=== PATIENT | male | born 1950 | race Caucasian/White ===

== ENCOUNTER 2020-03-17 00:19 | Outpatient (CLI) | payer MEDICARE, SELFPAY ==
[2020-03-17 16:41] LABS: SARS-CoV-2 RNA PCR Negative
== END 2020-03-17 00:20 | disposition home or self-care (01) ==
LOC: ANHCOVIDDT 00:19
PROVIDERS: PCP Internal Medicine; Visit Provider Internal Medicine Gastroenterology
DX: Z01.818 Encounter for other preprocedural examination (principal); Z11.59 Encounter for screening for other viral diseases
CPT/HCPCS: 87635; C9803; U0003

== ENCOUNTER 2020-03-19 01:32 | Day surgery (SDC) | payer MEDICARE, SELFPAY ==
[2020-03-12 10:17] VITALS: BMI 30.8
[2020-03-19 06:28] VITALS: BP 131/84; PULSE 75; RESP 16; TEMP 36.2; O2SAT 96; BMI 31.1
[2020-03-19] MEDS: LACTATED RINGERS 1,000 ML 150 ML IV CONT (06:45)
--- NOTE | 2020-03-19 07:10 | WPDANESEPPF ---
Anes - Initial Pre Proc Eval Procedure: Operation Date: 03/19/20 07:30 Proposed Procedures p Esophagogastroduodenoscopy - Cj Marte MD Date/Time: 03/19/20 07:10 Surgeon: Cj Marte MD Pre Op Diagnosis: barretts esophagus Patient Data Age: 69 Gender: M Height: 6 ft Weight: 104 kg Last Vital Signs Temp 97.2 F L 03/19/20 06:28 Pulse 75 03/19/20 06:28 Resp 16 03/19/20 06:28 BP 131/84 03/19/20 06:28 Pulse Ox 96 03/19/20 06:28 Allergies Allergy/AdvReac Type Severity Reaction Status Date / Time Antihistamines - Alkylamine AdvReac Mild hyperactivi Verified 03/19/20 06:27 ty Home Medications Medication Instructions Recorded Confirmed Type Lacto.acidophilus-Bif.animalis 10 1 cap PO DAILY 09/06/19 03/12/20 History billion cell capsule alpha lipoic acid 50 mg capsule 200 mg PO DAILY 09/06/19 03/12/20 History cholecalciferol (vitamin D3) 25 1,000 unit PO DAILY 09/06/19 03/12/20 History mcg (1,000 unit) capsule multivitamin 1 tablet PO DAILY 09/06/19 03/12/20 History valacyclovir 1 gram tablet 2,000 mg PO PRN PRN tablet 09/06/19 03/12/20 History vitamin B complex 1 tablet PO DAILY 09/06/19 03/12/20 History omega-3 fatty acids-fish oil 360 1 cap PO BID 10/11/19 03/12/20 History mg-1,200 mg capsule pantoprazole 40 mg tablet,delayed 40 mg PO QAM #90 tablet 01/01/20 03/12/20 Rx release ezetimibe 10 mg tablet 10 mg PO DAILY #90 tablet 01/04/20 03/12/20 Rx candesartan 8 mg tablet 8 mg PO BID #180 tablet 02/20/20 03/19/20 Rx Patient hx anesthesia problems: none Family hx anesthesia problems: none PMFSH Past Medical History Medical History (Updated 03/19/20 @ 07:10 by Darryl Luna MD) Acute left ankle pain Anxiety BMI 31.0-31.9,adult Encounter for Medicare annual wellness exam Encounter for routine adult health examination without abnormal findings Encounter for special screening examination for neoplasm of prostate Eustachian tube dysfunction History of varicose veins Hx of colonic polyps Hx of colonic polyps Hypertension Melanoma Mixed hyperlipidemia On intermission coordinator drug therapy Spermatocele Thrombophlebitis of superficial veins of left lower extremity Thrombosed external hemorrhoid Venous insufficiency Vitamin B12 deficiency Vitamin D deficiency Surgical History Surgical History History of carpal tunnel surgery (~06/2007) left History of carpal tunnel surgery (~10/08/11) Right History of hemorrhoidectomy (~06/2019) History of hip surgery (~09/23/16) excision bursa Hx of bursectomy hip greater trochanteric bursa S/P cataract surgery 02/2015 & 04/2015 Status post phlebectomy (~09/20/18) Social History Social History Smoking status: Former smoker Second hand tobacco smoke exposure: No Smoking end date: 10/17/10 Alcohol intake: current Gender identity (if verbalized by the patient): Male Anes - Eval Final PreProcedure Day of Procedure 03/19/20 07:10 Patient weight: obese Heart: regular rate and rhythm Lungs: clear to auscultation Airway: Mallampati scale class II Neurological: alert and oriented Last oral intake: >/= 8 hours ASA classification: III Emergent: no Anesthetic plan: proceed Anesthesia type and monitoring: general GIVS and standard monitoring Informed Consent: The patient's anesthetic plan and its attendant risks and benefits were discussed with the patient/family/POA. Questions were solicited and answers provided to the satisfaction of the patient/family/POA.
--- NOTE | 2020-03-19 07:18 | PM.HPGS ---
History of Present Illness History of Present Illness Consent: Risks, benefits, and alternatives have been discussed and questions answered. Patient agrees to proceed with procedure. Chief complaint: barretts esophagus Narrative: Javi Bruce is a 69 year old male With Patrick's esophagus. [facility] Past Medical History Medical History Acute left ankle pain Anxiety BMI 31.0-31.9,adult Encounter for Medicare annual wellness exam Encounter for routine adult health examination without abnormal findings Encounter for special screening examination for neoplasm of prostate Eustachian tube dysfunction History of varicose veins Hx of colonic polyps Hx of colonic polyps Hypertension Melanoma Mixed hyperlipidemia On [facility] drug therapy Spermatocele Thrombophlebitis of superficial veins of left lower extremity Thrombosed external hemorrhoid Venous insufficiency Vitamin B12 deficiency Vitamin D deficiency Surgical History Surgical History History of carpal tunnel surgery (~06/2007) left History of carpal tunnel surgery (~10/08/11) Right History of hemorrhoidectomy (~06/2019) History of hip surgery (~09/23/16) excision bursa Hx of bursectomy hip greater trochanteric bursa S/P cataract surgery 02/2015 & 04/2015 Status post phlebectomy (~09/20/18) Family History Family History Father Cerebrovascular accident Family history of diabetes mellitus in first degree relative Diabetes mellitus Mother Family history of chronic obstructive pulmonary disease Sibling Family history of diabetes mellitus in first degree relative Carcinoma of colon Diabetes mellitus Other Family history of arthritis Family history of diabetes mellitus Family history of gout Family history of kidney stones Family history of malignant neoplasm Hypertension Social History Social History Smoking status: Former smoker Second hand tobacco smoke exposure: No Smoking end date: 10/17/10 Alcohol intake: current Gender identity (if verbalized by the patient): Male Meds Home Medications and Allergies Home Medications Medication Instructions Recorded Confirmed Type Lacto.acidophilus-Bif.animalis 10 1 cap PO DAILY 09/06/19 03/12/20 History billion cell capsule alpha lipoic acid 50 mg capsule 200 mg PO DAILY 09/06/19 03/12/20 History cholecalciferol (vitamin D3) 25 1,000 unit PO DAILY 09/06/19 03/12/20 History mcg (1,000 unit) capsule multivitamin 1 tablet PO DAILY 09/06/19 03/12/20 History valacyclovir 1 gram tablet 2,000 mg PO PRN PRN tablet 09/06/19 03/12/20 History vitamin B complex 1 tablet PO DAILY 09/06/19 03/12/20 History omega-3 fatty acids-fish oil 360 1 cap PO BID 10/11/19 03/12/20 History mg-1,200 mg capsule pantoprazole 40 mg tablet,delayed 40 mg PO QAM #90 tablet 01/01/20 03/12/20 Rx release ezetimibe 10 mg tablet 10 mg PO DAILY #90 tablet 01/04/20 03/12/20 Rx candesartan 8 mg tablet 8 mg PO BID #180 tablet 02/20/20 03/19/20 Rx Allergies Allergy/AdvReac Type Severity Reaction Status Date / Time Antihistamines - Alkylamine AdvReac Mild hyperactivi Verified 03/19/20 06:27 ty Vital Signs Vital Signs - 24 hr 03/19/20 06:28 Temperature 36.2 C L Pulse Rate 75 Respiratory Rate 16 Blood Pressure 131/84 Pulse Oximetry 96 Exam Const: General: alert Orientation/consciousness: patient oriented x3 Resp: Auscultation: clear to auscultation bilaterally Cardio: Rhythm: regular rhythm GI: GI Palp: Yes Soft to palpation and No Tenderness to palpation present (GI) Neuro: General: patient oriented x3 Assessment and Plan Assessment and plan (1) 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
[2020-03-19 07:40] VITALS: BP 81/44; PULSE 79; RESP 14; O2SAT 94
[2020-03-19 07:50] VITALS: BP 92/61; PULSE 76; RESP 18; O2SAT 97
[2020-03-19 08:00] VITALS: BP 101/72; PULSE 74; RESP 16; O2SAT 95
== END 2020-03-19 08:21 | disposition home or self-care (01) ==
PROVIDERS: PCP Internal Medicine; Visit Provider Internal Medicine Gastroenterology
PROC: 0DJ08ZZ Inspection of Upper Intestinal Tract, Via Natural or Artificial Opening Endoscopic (ICD-10-PCS; CPT 43235; principal; 2020-03-19 07:30)
DX: K22.70 Barrett's esophagus without dysplasia (principal); K20.8 Other esophagitis; I10 Essential (primary) hypertension; E78.2 Mixed hyperlipidemia; E55.9 Vitamin D deficiency, unspecified; E53.8 Deficiency of other specified B group vitamins; Z87.891 Personal history of nicotine dependence; E66.9 Obesity, unspecified; Z68.31 Body mass index [BMI] 31.0-31.9, adult
CPT/HCPCS: 43239; 88305; J2001; J2704; J7120

== ENCOUNTER 2020-05-22 07:41 | Outpatient (CLI) | payer MEDICARE, SELFPAY ==
--- NOTE | ~2020-05-22 | US_ITS ---
US abdomen complete DATE: 05/22/2020 08:14 INDICATION: Right upper quadrant abdominal pain TECHNIQUE: Real-time imaging of the abdomen, Doppler analysis COMPARISON: 03/02/2013 CT abdomen pelvis FINDINGS: There is hepatic steatosis. No hepatic space-occupying mass lesion is evident. Normal hepat opedal portal venous flow direction. No pancreatic mass lesion is evident. The pancreatic distal body and tail are not optimally visualized due to interference from overlying bowel. The common bile duct measures 3.9 mm, within normal limits. No gallstones, gallbladder wall thickening or pericholecystic fluid. Negative sonographic Klein's si gn. The right kidney measures approximately 10.9 cm length, the left kidney approximately 12.3 cm length. No renal mass lesion or hydronephrosis is detected. Normal splenic size. No abdominal aortic aneurysm is evident. The inferior vena cava areas are unremarkable. IMPRESSION: Hepatic steatosis Limited visualization of the pancreas Reviewed, dictated and finalized at [facility]. Reviewed, dictated and finalized at location [facility].
== END 2020-05-22 07:42 | disposition home or self-care (01) ==
PROVIDERS: PCP Internal Medicine; Visit Provider Internal Medicine
DX: R10.11 Right upper quadrant pain (principal); K76.0 Fatty (change of) liver, not elsewhere classified
CPT/HCPCS: 76700

== ENCOUNTER 2020-08-13 10:29 | Outpatient (CLI) | payer MEDICARE, SELFPAY ==
--- NOTE | 2020-08-13 10:36 | ECG_ITS ---
Measurements Intervals [place] Rate: 85 P: 41 AR: 158 QRS: 41 QRSD: 122 T: 26 QT: 395 QTc: 472 Interpretive Statements SINUS RHYTHM RSR' IN V1 OR V2, CONSIDER RIGHT VENTRICULAR HYPERTROPHY OR RIGHT VCD BASELINE ARTIFACT- I, III, AVR, AVL, AVF, V1 BORDERLINE ECG Electronically Signed On 08-13-2020 11:10:59 CDT by Hamilton Strauss D.O.
== END 2020-08-13 10:30 | disposition home or self-care (01) ==
LOC: ANHSURGERY 10:36
PROVIDERS: PCP Internal Medicine; Visit Provider Orthopaedic Surgery
DX: Z01.818 Encounter for other preprocedural examination (principal); I10 Essential (primary) hypertension
CPT/HCPCS: 93005

== ENCOUNTER 2020-08-15 02:53 | Outpatient (CLI) | payer MEDICARE, SELFPAY ==
[2020-08-15 18:02] LABS: SARS-CoV-2 RNA PCR Negative
== END 2020-08-15 02:54 | disposition home or self-care (01) ==
LOC: ANHCOVIDDT 02:54
PROVIDERS: PCP Internal Medicine; Visit Provider Orthopaedic Surgery
DX: Z01.812 Encounter for preprocedural laboratory examination (principal); Z20.828 Contact with and (suspected) exposure to other viral communicable diseases
CPT/HCPCS: 87635; C9803; U0003

== ENCOUNTER 2020-08-18 01:26 | Day surgery (SDC) | payer MEDICARE, SELFPAY ==
[2020-08-08 13:25] VITALS: BMI 32.3
--- NOTE | 2020-08-15 15:36 | WPDANESEPPF ---
Anes - Initial Pre Proc Eval Procedure: Operation Date: 08/18/20 10:30 Proposed Procedures p Right Third And Fourth Trigger Finger Release - Marek Pierce MD Date/Time: 08/15/20 15:36 Surgeon: Marek Pierce MD Pre Op Diagnosis: Right 3rd & 4th Trigger Finger Patient Data Age: 69 Gender: M Height: 1.82 m Weight: 106.6 kg Allergies Allergy/AdvReac Type Severity Reaction Status Date / Time Antihistamines - Alkylamine AdvReac Mild hyperactivi Verified 08/18/20 08:32 ty Isinvzo-Drm-Hwb Reductase AdvReac Unknown LEG/FEET Verified 08/18/20 08:32 Inhibitor PAIN Home Medications Medication Instructions Recorded Confirmed Type Lactobacillus 1 cap PO DAILY 09/06/19 08/18/20 History acidophilus-Bifidobac.animalis 10 billion cell capsule alpha lipoic acid 50 mg capsule 200 mg PO DAILY 09/06/19 08/18/20 History cholecalciferol (vitamin D3) 25 1,000 unit PO DAILY 09/06/19 08/18/20 History mcg (1,000 unit) capsule multivitamin 1 tablet PO DAILY 09/06/19 08/18/20 History valacyclovir 1 gram tablet 2,000 mg PO PRN PRN tablet 09/06/19 08/08/20 History vitamin B complex 1 tablet PO DAILY 09/06/19 08/18/20 History omega-3 fatty acids-fish oil 360 2 cap PO DAILY 10/11/19 08/18/20 History mg-1,200 mg capsule pantoprazole 40 mg tablet,delayed 40 mg PO QAM #90 tablet 01/01/20 08/18/20 Rx release candesartan 8 mg tablet 8 mg PO BID #180 tablet 02/20/20 08/18/20 Rx Patient hx anesthesia problems: none Family hx anesthesia problems: none PMFSH Past Medical History Medical History Acute left ankle pain Anxiety BMI 31.0-31.9,adult Encounter for Medicare annual wellness exam Encounter for routine adult health examination without abnormal findings Encounter for special screening examination for neoplasm of prostate Eustachian tube dysfunction History of Patrick's esophagus History of varicose veins Hx of colonic polyps Hx of colonic polyps Hypertension Melanoma Mixed hyperlipidemia On senior living drug therapy RUQ abdominal pain Spermatocele Thrombophlebitis of superficial veins of left lower extremity Thrombosed external hemorrhoid Venous insufficiency Vitamin B12 deficiency Vitamin D deficiency Surgical History Surgical History History of carpal tunnel surgery (~06/2007) left History of carpal tunnel surgery (~10/08/11) Right History of hemorrhoidectomy (~06/2019) History of hip surgery (~09/23/16) excision bursa Hx of bursectomy hip greater trochanteric bursa S/P cataract surgery 02/2015 & 04/2015 Status post phlebectomy (~09/20/18) Family History Family History Father Cerebrovascular accident Family history of diabetes mellitus in first degree relative Diabetes mellitus Mother Family history of chronic obstructive pulmonary disease Sibling Family history of diabetes mellitus in first degree relative Carcinoma of colon Diabetes mellitus Other Family history of arthritis Family history of diabetes mellitus Family history of gout Family history of kidney stones Family history of malignant neoplasm Hypertension Social History Social History Years smoked: 8 Smoking status: Former smoker Tobacco type: cigarettes Second hand tobacco smoke exposure: No Smoking end date: 10/17/01 Alcohol intake: current Drinks per week: 15 Alcohol use details: VODKA Living arrangements: with family Gender identity (if verbalized by the patient): Male Spiritual care concerns: No Anes - Eval Final PreProcedure Day of Procedure 08/15/20 15:36 Patient weight: obese Heart: regular rate and rhythm Lungs: clear to auscultation and normal air movement Airway: Mallampati scale Neurological: alert and oriented Last oral intake: >/= 8 hours
--- NOTE | 2020-08-18 08:38 | WPDHPUPDATE1 ---
History and Physical Update Update Date/Time: 08/18/20 08:38 History and Physical has been reviewed, including an updated exam of the patient. Only the 3rd is troubling him today. Plan on only releasing the right third trigger finger today. The permit has been changed to reflect that. Risks, benefits, and alternatives have been discussed and questions answered. Patient agrees to proceed with procedure.
[2020-08-18] MEDS: LACTATED RINGERS 1,000 ML 30 ML IV CONT ×2 (09:03→10:51)
[2020-08-18] MEDS: ACETAMINOPHEN 500 MG TABLET 1000 MG PO (09:06)
[2020-08-18] MEDS: KETOROLAC 15 MG/ML VIAL (*BKC) IV PUSH (09:06)
[2020-08-18] MEDS: ceFAZolin 2 GM/D5W 50 ML 2 GM/50 ML BAG IVPB (10:15)
[2020-08-18 10:51] VITALS: BP 98/66; PULSE 73; RESP 16; O2SAT 94
--- NOTE | 2020-08-18 11:07 | PM.PROC ---
Procedure Note - Detailed Date of procedure: 08/18/20 Pre-op diagnosis: Right 3rd & 4th Trigger Finger right third trigger finger Post-op diagnosis: other ( right third trigger finger) Procedure performed: right third trigger finger release Description of procedure: The patient was identified and proper site identified. The third digit of the right hand was marked. He was taken to the operating room and transferred to the OR table placing him supine taking care to pad his torso and extremities. After nonsterile tourniquet was placed high in the right arm and the arm was prepped and draped in the usual sterile fashion, IV sedation was administered. Several cc of 0.25% plain Marcaine was injected into the subcutaneous tissue over the A1 mayi of the right third digit. Extremity was exsanguinated tourniquet inflated to 200 mmHg remaining up for about 8 minutes. A longitudinal incision was made over the A1 mayi. Subcutaneous tissue was bluntly dissected protecting the neurovascular bundles. The A1 mayi was identified and transected longitudinally in line with the tendons. The tendons were delivered into the wound to verify the adequacy of the release. Hemostasis was carried out. The was irrigated with sterile antibiotic solution. Skin edges were reapproximated with four O nylon suture and a sterile dressing was applied. He tolerated the procedure well. He was transferred back three cart and taken to the recovery area in stable condition. There were no known intraoperative complications. Estimated blood loss was negligible. He received perioperative antibiotics. Anesthesia: MAC Surgeon: Marek Pierce MD Estimated blood loss (mL): 1 Tourniquet time (min): 8 Drains: No Packing: No Pathology: none sent Complications: No immediate complications Condition: stable Disposition: PACU
[2020-08-18 11:20] VITALS: BP 105/70; PULSE 65; RESP 16; O2SAT 97
== END 2020-08-18 11:59 | disposition home or self-care (01) ==
PROVIDERS: PCP Internal Medicine; Visit Provider Orthopaedic Surgery
PROC: (CPT 26055; principal; 2020-08-18 10:30)
DX: M65.331 Trigger finger, right middle finger (principal); I10 Essential (primary) hypertension; E78.2 Mixed hyperlipidemia; F41.9 Anxiety disorder, unspecified; E55.9 Vitamin D deficiency, unspecified; E53.8 Deficiency of other specified B group vitamins; I87.2 Venous insufficiency (chronic) (peripheral); Z87.891 Personal history of nicotine dependence; E66.9 Obesity, unspecified; Z68.32 Body mass index [BMI] 32.0-32.9, adult
CPT/HCPCS: 26055; A9270; J0690; J1100; J1885; J2250; J2405; J2704; J3010; J7120

== ENCOUNTER 2020-09-25 08:45 | Outpatient (CLI) | payer MEDICARE, SELFPAY ==
--- NOTE | ~2020-09-25 | MR_ITS ---
EXAMINATION: MR knee RT wo con DATE: 09/25/2020 10:33 INDICATION: Right knee pain TECHNIQUE: Magnetic resonance imaging (MRI) of the right knee was performed without intravenous contr ast. Sequences included coronal PD-weighted FSE, coronal PD-weighted FS FSE, sagittal T2-weighted FS E, sagittal PD-weighted FS FSE and axial PD weighted fat saturated FSE. COMPARISON: None. FINDINGS: Medial compartment: Longitudinal oblique tear extending to the inferior articular surface at the medial meniscal body, be coming complex in the posterior horn where there is an additional tear plane extending to the cephala d articular surface. Partial-thickness chondral fissuring versus possibly small frayed meniscal flap at the lateral side of the central weightbearing medial femoral condyle just anterior to the posterio r root of the medial meniscus. Lateral compartment: Subtle longitudinal horizontal tear plane extending to the inferior articular surface near the free e dge of the posterior horn and posterior body of the lateral meniscus. Deep chondral fissuring involvi ng greater than 50% the cartilage thickness but without degenerative subchondral changes at the poste rior aspect of the lateral tibial plateau. Small region of shallow chondral ulceration at the medial side of the posterior weightbearing medial femoral condyle. Patellofemoral compartment: Partial-thickness chondral fissuring involving up to 50% the cartilage thickness at the lateral plaza lar facet. Deeper fissuring with small focus of subarticular edema at the medial patellar facet. Troc hlear cartilage is relatively preserved. Ligaments and tendons: Anterior and posterior cruciate ligaments are normal. The medial collateral ligament and fibular uriel ateral ligament complex are normal. Moderate quadriceps tendinopathy with enthesopathic ossification and enthesophytes at its distal patellar insertion. Partial-thickness intrasubstance tear of the dist al quadriceps tendon measuring 1.5 cm medial to lateral than one third to one half of the tendon thic kness and extending up to 2 cm proximal from the patellar insertion. There is mild likely reactive ed kendrick in the patella underlying the patellar insertion of the distal quadriceps tendon. The visualized medial and lateral hamstring tendons as well as the iliotibial band are normal. Fluid: Small right knee joint effusion. 9 x 6 x 2 mm loose body in the recess posterior to the posterior cru ciate ligament. Osseous/other: Normal marrow signal aside from the previously noted mild patellar edema. No fracture or pathologic m arrow replacing process. IMPRESSION: 1. Moderate distal quadriceps tendinopathy/enthesopathy with partial-thickness intrasubstance tear of the distal quadriceps tendon. 2. Complex medial meniscal tear and longitudinal horizontal tear of the lateral meniscus. 3. Mild tricompartmental osteoarthritis with small region of high-grade chondral malacia the medial p atellar facet and small regions of moderate grade chondromalacia at the medial and lateral compartmen ts. 4. Small right knee joint effusion with small loose body at the recess posterior to the posterior cru ciate ligament. Reviewed, dictated and finalized at location [facility]. NING INTERN IMPRESSION: 1. Moderate distal quadriceps tendinopathy/enthesopathy with partial-thickness intrasubstance tear of the distal quadriceps tendon. 2. Complex medial meniscal tear and longitudinal horizontal tear of the lateral meniscus. 3. Mild tricompartmental osteoarthritis with small region of high-grade chondra l malacia the medial patellar facet and small regions of moderate grade chondro malacia at the medial and lateral compartments. 4. Small right knee joint effusion with small loose body at the rece
== END 2020-09-25 08:46 | disposition home or self-care (01) ==
PROVIDERS: PCP Internal Medicine; Visit Provider Orthopaedic Surgery
DX: S83.241A Other tear of medial meniscus, current injury, right knee, initial encounter (principal); S83.281A Other tear of lateral meniscus, current injury, right knee, initial encounter; S86.811A Strain of other muscle(s) and tendon(s) at lower leg level, right leg, initial encounter; R60.0 Localized edema; M25.461 Effusion, right knee
CPT/HCPCS: 73721

== ENCOUNTER 2020-10-07 14:50 | Outpatient (CLI) | payer MEDICARE, SELFPAY ==
--- NOTE | ~2020-10-07 | CT_ITS ---
EXAMINATION: CT abdomen pelvis wo con DATE: 10/07/2020 15:21 INDICATION: Gross hematuria TECHNIQUE: Computed tomography (CT) of the abdomen and pelvis was performed without intravenous contr ast. The dose-length product was 964.35 mGy-cm. Automated exposure control and iterative reconstructi on technique were employed. COMPARISON: CT dated 03/02/2013. FINDINGS: Lung bases are unremarkable. Heart size normal. No significant pleural or pericardial effus ion. The liver, spleen, pancreas, adrenal glands are unremarkable. There are nonobstructing bilateral nikita l stones. There is a punctate calcification dependent in the bladder, possibly recently passed stone. No ureteral stones or hydronephrosis. Gallbladder is present. Nonobstructive bowel gas pattern. Norm al appendix. Prostate gland is enlarged. Mild lower thoracic and lumbar spondylosis. No significant v ascular abnormality. No lymphadenopathy. IMPRESSION: 1. Punctate calcification dependently in the bladder, possibly recently passed stone. 2: Nonobstructing bilateral nephrolithiasis. 3: Enlarged prostate gland. Reviewed, dictated and finalized at location A. VACUUM TESTER
== END 2020-10-07 14:51 | disposition home or self-care (01) ==
PROVIDERS: PCP Internal Medicine; Visit Provider Internal Medicine
DX: R31.0 Gross hematuria (principal); N20.0 Calculus of kidney; N40.0 Benign prostatic hyperplasia without lower urinary tract symptoms; N21.0 Calculus in bladder
CPT/HCPCS: 74176

== ENCOUNTER 2020-10-17 00:52 | Outpatient (CLI) | payer MEDICARE, SELFPAY ==
[2020-10-17 18:38] LABS: SARS-CoV-2 RNA PCR Negative
== END 2020-10-17 00:53 | disposition home or self-care (01) ==
LOC: ANHCOVIDDT 00:53
PROVIDERS: PCP Internal Medicine; Visit Provider Internal Medicine Critical Care Medicine
DX: U07.1 COVID-19 (principal)
CPT/HCPCS: C9803; U0003

== ENCOUNTER 2020-10-20 09:18 | Outpatient (CLI) | payer MEDICARE, SELFPAY ==
--- NOTE | 2020-11-27 16:28 | WPDSLEEPSTUD ---
Sleep Study Date of Study: 10/20/20 Ordering Provider: Yennifer Rodríguez MD Interpreting Physician: Naomi Phelan MD Sleep Study Type: Polysomnogram Height: 1.8 m Weight: 102.058 kg Body Mass Index: 31.4 Neck Circumference: 40.64 cm [place]: 7 Reason for Sleep Study Loud snoring, restless sleep Sleep History Javi Bruce is a 70 year old man with hypertension. He frequently snores and it is always loud enough that others complain about it. At times, this wakes him up. His tells him that he is a restless sleeper, and hse notices that he has difficulty breathing at night. This does not happen every night. His brother has a history of sleep disordered breathing. He occasionally awakens from sleep feeling short of breath. He rarely awakens at night with heartburn, belching or coughing. He constantly has trouble sleep with a cold. He occasionally wakes up gasping for breath at night. He frequently has breathing problems at night observed by others. He does not sweat excessively at night. He occasionally notices his heart pounding or beating irregularly at night. He occasionally falls asleep during the day, never involuntarily and never while driving. He does not fall asleep during physical effort. He does not have loss of muscle tone was strong emotion. He does not have daytime difficulties due to excessive sleepiness. He does not feel paralyzed on waking or falling asleep. He occasionally has vivid dreamlike scenes upon awakening or falling asleep. He is not afraid to go to sleep. He does not have nightmares. He occasionally has racing thoughts. He occasionally remembers his dreams. He does not feel sad, depressed or anxious. He does not have muscular tension. He occasionally notices parts of his body jerking, rarely kicking at night. He does not have crawling and aching feelings in his legs at night or have any kind of leg pain during the night. He rarely has morning jaw pain. He frequently grinds his teeth at night and he wears a mouth splint. He rarely is bothered by pain during the day, rarely awakened by pain at night. He occasionally wakes up feeling stiff in the morning with sore achy muscles and pain in the neck and spine. He has a history of gastroesophageal reflux disease and palpitations with PVCs. Normal bedtime is 10:00 p.m., falling asleep within 10-20 minutes, waking 1 or 2 times at night to urinate. It takes 5 - 10 minutes to return to sleep. He wakes in the morning at 7:00 a.m.. The weekend schedule is the same. He has indigestion at night if he eats too late. He does take naps in the afternoon or evening. He may feel refreshed after a short 10-15 minute nap. Most of the time he feels good in the morning. He feels better in the afternoon compared to the morning. Habits: Smoked tobacco 15 years ago. Caffeine 2 cups per day. Alcohol: has not had any for over 2 months. Prior to this he was drinking 3-5 drinks per day. No recreational drugs. PMFSH Past Medical History Medical History Acute left ankle pain Anxiety BMI 31.0-31.9,adult Encounter for Medicare annual wellness exam Encounter for Medicare annual wellness exam Encounter for routine adult health examination without abnormal findings Encounter for special screening examination for neoplasm of prostate Eustachian tube dysfunction Hearing loss Hematuria History of Patrick's esophagus History of varicose veins Hx of colonic polyps Hx of colonic polyps Hyperlipidemia Hypersomnolence Hypertension Melanoma Mixed hyperlipidemia On retirement drug therapy RUQ abdominal pain Spermatocele Tear of medial meniscus of right knee Tendinitis of right quadriceps tendon Thrombophlebitis of superficial veins of left lower extremity Thrombosed external hemorrhoid Venous insufficiency Vitamin B12 deficiency Vitamin D deficiency Surgical History Surgical History (Reviewed 11/27/20 @ 16:33 by Arnulfo
[2020-11-30 16:14] VITALS: BMI 31.4
== END 2020-10-20 09:19 | disposition home or self-care (01) ==
LOC: ANHCSM 09:33
PROVIDERS: PCP Internal Medicine; Visit Provider Internal Medicine
DX: G47.33 Obstructive sleep apnea (adult) (pediatric) (principal); G47.10 Hypersomnia, unspecified
CPT/HCPCS: 95810

== ENCOUNTER → 2020-12-19 01:59 | Outpatient (CLI) | payer MEDICARE, SELFPAY ==
[2020-12-20 08:28] LABS: SARS-CoV-2 RNA PCR Negative
== END ==
PROVIDERS: PCP Internal Medicine; Visit Provider Orthopaedic Surgery
DX: Z01.812 Encounter for preprocedural laboratory examination (principal); Z20.822 Contact with and (suspected) exposure to COVID-19
CPT/HCPCS: C9803; U0003; U0005

== ENCOUNTER → 2020-12-23 07:43 | Outpatient (CLI) | payer MEDICARE, SELFPAY ==
[2020-12-24 17:20] LABS: SARS-CoV-2 RNA PCR Negative
== END ==
PROVIDERS: PCP Internal Medicine; Visit Provider Orthopaedic Surgery
DX: Z01.812 Encounter for preprocedural laboratory examination (principal); Z20.822 Contact with and (suspected) exposure to COVID-19
CPT/HCPCS: C9803; U0003; U0005

== ENCOUNTER 2020-12-23 09:45 | Outpatient (CLI) | payer MEDICARE, SELFPAY ==
--- NOTE | ~2020-12-23 | XR_ITS ---
EXAMINATION: XR ankle LT min 3V EXAM DATE: 12/23/2020 10:12 INDICATION: No known recent injury provided at this time. Pain of the left ankle. Gout. TECHNIQUE: Left ankle frontal, lateral and oblique projections obtained and reviewed. Comparison is m sol to prior examination from 01/15/2019. FINDINGS: The left ankle mortise appears intact. There are no bony erosions identified. There are n o acute fractures or dislocations identified. There is no subcutaneous gas. The soft tissue is unre markable. There are no radiopaque foreign bodies. IMPRESSION: 1. Unremarkable left ankle exam. Reviewed, dictated and finalized at location [facility]. [employer]
[2020-12-23 10:25] LABS: CRP 2.9 mg/dL (<1.0); Uric Acid 8.7 mg/dL (3.5-8.5)
[2020-12-23 10:57] LABS: Erythrocyte Sedimentation Rate 14 mm/hr (0-20)
== END 2020-12-23 09:46 | disposition home or self-care (01) ==
PROVIDERS: PCP Internal Medicine; Visit Provider Internal Medicine
DX: M10.9 Gout, unspecified (principal); M25.572 Pain in left ankle and joints of left foot
CPT/HCPCS: 36415; 73610; 84550; 85652; 86140; C9803; U0003; U0005

== ENCOUNTER 2020-12-25 00:26 | Day surgery (SDC) | payer MEDICARE, SELFPAY ==
[2020-12-12 13:04] VITALS: BMI 30.9
--- NOTE | 2020-12-23 13:11 | PC.NURSE ---
PT STATES NO CHANGE IN HEALTH OR MEDS SINCE PREOP INTERVIEW.NEW PREOP INSTRUCTIONS GIVEN.
--- NOTE | 2020-12-24 12:25 | WPDANESEPPF ---
Anes - Initial Pre Proc Eval Procedure: Operation Date: 12/25/20 12:00 Proposed Procedures p Right Knee Arthroscopy, Partial Medial Meniscectomy - Marek Pierce MD s Open Debridement Of Right Quadricep Tendon - Marek Pierce MD Date/Time: 12/24/20 12:25 Surgeon: Marek Pierce MD Pre Op Diagnosis: Right Knee Media Meniscus Tear,Quadricep Tendoniti Patient Data Age: 70 Gender: M Height: 1.8 m Weight: 100.45 kg Allergies Allergy/AdvReac Type Severity Reaction Status Date / Time Antihistamines - Alkylamine AdvReac Mild hyperactivi Verified 12/25/20 10:59 ty Arwgkmy-Ivl-Rnc Reductase AdvReac Unknown LEG/FEET Verified 12/25/20 10:59 Inhibitor PAIN Home Medications Medication Instructions Recorded Confirmed Type Lactobacillus 1 cap PO DAILY 09/06/19 12/23/20 History acidophilus-Bifidobac.animalis 10 billion cell capsule cholecalciferol (vitamin D3) 25 1,000 unit PO DAILY 09/06/19 12/23/20 History mcg (1,000 unit) capsule valacyclovir 1 gram tablet 2,000 mg PO PRN PRN tablet 09/06/19 12/23/20 History pantoprazole 40 mg tablet,delayed 40 mg PO QAM #90 tablet 01/01/20 12/23/20 Rx release candesartan 8 mg tablet See Rx Instructions .ROUTE 08/21/20 12/23/20 Rx .COMPLEX #180 tablet tramadol 50 mg tablet 50 mg PO Q6H PRN #30 tablet 12/03/20 12/23/20 Rx aspirin 81 mg tablet,delayed 81 mg PO DAILY 12/08/20 12/23/20 History release naproxen 500 mg tablet 500 mg PO TID PRN #9 tablet 12/23/20 12/23/20 Rx Patient hx anesthesia problems: none Family hx anesthesia problems: none PMFSH Past Medical History Medical History (Updated 12/23/20 @ 08:55 by Aruna Warren [facility]) Acute left ankle pain Anxiety Bladder stones BMI 31.0-31.9,adult Encounter for Medicare annual wellness exam Encounter for Medicare annual wellness exam Encounter for routine adult health examination without abnormal findings Encounter for special screening examination for neoplasm of prostate Eustachian tube dysfunction Follow up Gout Hearing loss Hematuria History of Patrick's esophagus History of varicose veins Hx of colonic polyps Hx of colonic polyps Hyperlipidemia Hypersomnolence Hypertension Melanoma Mixed hyperlipidemia On care home drug therapy RUQ abdominal pain Spermatocele Tear of medial meniscus of right knee Tendinitis of right quadriceps tendon Thrombophlebitis of superficial veins of left lower extremity Thrombosed external hemorrhoid Venous insufficiency Vitamin B12 deficiency Vitamin D deficiency Surgical History Surgical History History of carpal tunnel surgery (~06/2007) left History of carpal tunnel surgery (~10/08/11) Right History of hemorrhoidectomy (~06/2019) History of hip surgery (~09/23/16) excision bursa Hx of bursectomy hip greater trochanteric bursa S/P cataract surgery 02/2015 & 04/2015 Status post phlebectomy (~09/20/18) Trigger finger of right hand Right third surgical release July 2020 Family History Family History Father Cerebrovascular accident Family history of diabetes mellitus in first degree relative Diabetes mellitus Mother Family history of chronic obstructive pulmonary disease Sibling Family history of diabetes mellitus in first degree relative Carcinoma of colon Diabetes mellitus Other Family history of arthritis Family history of diabetes mellitus Family history of gout Family history of kidney stones Family history of malignant neoplasm Hypertension Social History Social History Smoking packs per day: 0.5 Smoking cigarettes per day: 10.0 Years smoked: 8 Smoking pack-years: 4.00 Smoking status: Former smoker Tobacco type: cigarettes Second hand tobacco smoke exposure: No Smoking end date: 10/17/01 Additional smoking assessment comments
--- NOTE | 2020-12-24 12:25 | WPDANESPNB ---
Anes - Peripheral Nerve Block Date/Time: 12/24/20 12:25 I have discussed with the patient/family/POA the placement of a peripheral nerve block for post-operative pain management, including associated risks, benefits, complications, and side effects. Alternative methods of post-operative analgesia were detailed. Questions were solicited and answers provided to the satisfaction of the patient/family/POA. Time-Out: A pre-procedural Time-Out was completed immediately before starting the procedure and confirmed: Patient Identification, Site, Procedure, Patient Position and the Availability of Requisite Equipment. Clinical Indications: Acute post-operative pain management requested by the operative surgeon. Nerve Block Insertion Note Anes-nerve block: adductor canal right Patient position: supine Skin prep: chlorhexidine Needle: 22 gauge, stimulating, insulated echogenic needle. Needle length: 80 mm Technique: ultrasound Technique comment: in plane Injectate: bupivacaine 0.5% with epi 5 mcg/ml (30cc) Observations: tolerated well Complications: none Procedure start time:: 1210 Procedure end time:: 121
[2020-12-25] VITALS (8 sets, daily range): BP systolic 88–141; BP diastolic 64–86; PULSE 80–100; RESP 15–20; TEMP 36.2–36.3; O2SAT 96–100
[2020-12-25] MEDS: ACETAMINOPHEN 500 MG TABLET 1000 MG PO (11:19)
[2020-12-25] MEDS: LACTATED RINGERS 1,000 ML 30 ML IV CONT ×2 (11:26→13:40)
[2020-12-25] MEDS: KETOROLAC 15 MG/ML VIAL (*BKC) IV PUSH (11:27)
--- NOTE | 2020-12-25 11:59 | WPDHPUPDATE1 ---
History and Physical Update Update Date/Time: 12/25/20 11:59 History and Physical has been reviewed, including an updated exam of the patient. There are NO changes in the patient's condition. Risks, benefits, and alternatives have been discussed and questions answered. Patient agrees to proceed with procedure.
[2020-12-25] MEDS: ceFAZolin 2 GM/D5W 50 ML 2 GM/50 ML BAG IVPB (12:20)
--- NOTE | 2020-12-25 13:59 | PM.PROC ---
Procedure Note - Detailed Date of procedure: 12/25/20 Pre-op diagnosis: Right Knee Media Meniscus Tear,Quadricep Tendoniti Post-op diagnosis: same Procedure performed: 1. right knee arthroscopy with partial medial meniscectomy 2. open debridement and repair right quad tendon Description of procedure: The patient was identified and proper site identified. After the anesthesia team performed a right subsartorial block, he was taken to the operating room and transferred to the OR table placing her supine taking care to pad the torso and extremities. After general anesthetic induction and intubation, a nonsterile tourniquet was placed high on the right thigh. The right lower extremity was positioned, prepped and draped in usual sterile fashion. 10 cc of 1% lidocaine was injected into the subcutaneous tissue in the area of the portals at start of the procedure, and an additional 10 at the end. The portals were established and the arthroscopy was carried out. the gutters and pouch were essentially clear. Patient had reasonable articular meniscal cartilage in the lateral compartment, some fraying of the patellar articular cartilage and medial compartment articular cartilage. There was complex tearing of the medial meniscus from the posterior horn up to into the midbody. This was contoured back to the rim with basket forceps and a shaver. There was some calcification of the cartilage appreciated as well. Arthrocare Wand was used for intra-articular hemostasis. The knee was flushed with a copious amount of arthroscopic fluid and equipment was removed. The extremity was then exsanguinated and the tourniquet inflated to 300 mmHg remaining up for approximately 17 minutes. A longitudinal incision was made distally over the quadriceps tendon at the insertion on the proximal pole of the patella. Subcutaneous tissue sharply dissected down to the tendon. The tendon was divided longitudinally centrally. There was then large area of degenerative tendon which was encountered along with a bony ossicle. The ossicle was removed rongeur was used to gently debride the degenerative tendon. This area was then irrigated. The tendon edges reapproximated side to side with 2. Vicryl suture. The deeper layers in the subcu reapproximated with two O Vicryl. Tourniquet was released. The skin edges of the incision of the quadriceps were reapproximated with three 0 nylon suture. Portals were closed with three O nylon suture and a sterile dressing was applied. He tolerated the procedure well, was awakened, extubated and taken to recovery area in stable condition. There were no known intraoperative complications. Estimated blood loss was negligible. He received perioperative antibiotics. Anesthesia: GLMA Surgeon: Marek Pierce MD Estimated blood loss (mL): 10 Tourniquet time (min): 17 Drains: No Packing: No Pathology: none sent Complications: No immediate complications Condition: stable Disposition: PACU
[2020-12-25] MEDS: oxyCODONE HCL (*CRX) 5 MG TAB IR PO (15:25)
== END 2020-12-25 15:50 | disposition home or self-care (01) ==
PROVIDERS: PCP Internal Medicine; Visit Provider Orthopaedic Surgery
PROC: (CPT 29870; principal; 2020-12-25 12:00)
PROC: (CPT 29881; 2020-12-25 12:00)
DX: M23.321 Other meniscus derangements, posterior horn of medial meniscus, right knee (principal); M76.891 Other specified enthesopathies of right lower limb, excluding foot; G89.18 Other acute postprocedural pain; I10 Essential (primary) hypertension; E78.2 Mixed hyperlipidemia; M10.9 Gout, unspecified; F41.9 Anxiety disorder, unspecified; E55.9 Vitamin D deficiency, unspecified; E53.8 Deficiency of other specified B group vitamins; Z87.891 Personal history of nicotine dependence; E66.9 Obesity, unspecified; Z68.30 Body mass index [BMI] 30.0-30.9, adult
CPT/HCPCS: 29881; 27385; 64447; A9270; J0690; J1100; J1885; J2250; J2370; J2405; J2704; J3010; J7120

== ENCOUNTER 2021-02-02 09:00 | Outpatient (RCR) | payer MEDICARE, SELFPAY ==
--- NOTE | 2020-12-31 12:33 | PTOPEVAL ---
Thank you for referring Javi Bruce to [facility].? Javi was evaluated for the dx of right knee scope with quad tendon debridement. The patient is scheduled to be seen for therapy?2 x/week for 5 weeks. Please review, sign, date and return this plan of care GILBERTO. I agree with and certify that the following plan of care is medically necessary. Referring Physician Date Attending Provider: Marek Pierce MD *PT Outpatient Evaluation Start: 12/31/20 08:09 Freq: Status: Active Protocol: Document 12/31/20 08:10 MLV (Rec: 12/31/20 09:22 MLV [id number]) Assessment Status Evaluation Evaluation Information Problem Diagnosis right knee scope with quad tendon debridement/repair 12/25/20 21 Onset September 2020 Cause overuse while doing rehab on his house Additional Evaluation Detail The patient is an excessive bike rider and has a hx of knee trouble due to overuse. The patient works part-time with insurance. The patient reports right knee pain and has meds but is limited to take them due to esophogeal issues. The patient was I w/o limits and active prior to this surgery and plans to return when allowed. Pain Assessment Timing of Pain Assessment Timing of Pain Assessment Assessment Pain Scale Pain Scale Used Numeric (1 - 10) Self Report Pain Assessment Right Knee(s) Reported Pain Level 2 Pain Description Aching,Pressure,Tightness Pain Frequency Acute Other Pain Description 2 with walking, bending is up to a 6 Pain Aggravating Factors Bending,Walking Pain Behaviors Anxious,Guarding,Limping Pain Score Pain Score 2: Self Report Interventions Used Interventions Used By Clinicians Education,Exercise,Ice Pain Relief Interventions Used By Ice,Inactivity/Rest,Medication Patient Lower Extremity Range of Motion General Lower Extremity Range of Motion Gross Lower Extremity Range of Motion left knee active motion: 0-133 Comments degrees right knee 0-87 degrees active, 0-90 degrees Lower Extremity Muscle Strength Testing General Lower Extremity Strength Reason Not Measured WNL/Left Gross Lower Extremity Strength right hip flexion/knee
--- NOTE | 2021-02-02 09:52 | PTOPEVAL ---
PHYSICAL THERAPY DISCHARGE Thank you for referring Javi Bruce to [facility].? The patient has met his goals and is independent with HEP. DC PT. Please review, sign, date and return this plan of care GILBERTO. I agree with and certify that the following plan of care is medically necessary. Referring Physician Date Attending Provider: Marek Pierce MD *PT Outpatient Discharge Start: 12/31/20 08:09 Freq: Status: Active Protocol: Document 02/02/21 09:00 MLV (Rec: 02/02/21 09:51 MLV [email or web address]) Therapy Assessment Status Assessment Status Assessment Status Discharge Evaluation Information Problem Diagnosis right knee scope with quad tendon debridement/repair 12/25/20 Onset September 2020 Cause overuse while doing rehab on his house Additional Evaluation Detail Pt feels he has progressed well and has no trouble with the HEP. The patient agrees that he is improved and is able to continue on his own with his exercises and activity progression. Pain Assessment Timing of Pain Assessment Timing of Pain Assessment Assessment Self Report Self Report Pain Level 0 Pain Score Pain Score 0: Self Report Lower Extremity Range of Motion General Lower Extremity Range of Motion Reason Not Measured WNL/Left,WNL/Right Gross Lower Extremity Range of Motion right knee 0-135 degrees Comments without pain or labor Lower Extremity Muscle Strength Testing General Lower Extremity Strength Reason Not Measured WNL/Left,WNL/Right Gross Lower Extremity Strength tolerating 20 reps of green theraband exercises w/o pain/ labor. Pt I with HEP and understands limits to activities that require higher stress to the patellar tendon, such as squat position/ stairs. Pt plans to review progression of bicycling with MD so not to put quad tendon at risk. Palpation Assessment Palpation Palpation non tender right knee region but reports sensitivity to clothing when it rubs his knee. No notable redness and incision sites well healed. Gait Assessment Gait Pattern Assessment Other Gait Observations pt ambulates w/o a devic
== END 2021-02-03 08:12 | disposition home or self-care (01) ==
LOC: ANHPT 09:00
PROVIDERS: PCP Internal Medicine; Visit Provider Orthopaedic Surgery
DX: Z48.89 Encounter for other specified surgical aftercare (principal)
CPT/HCPCS: 97035; 97110; 97161

== ENCOUNTER 2021-10-08 10:48 | Outpatient (CLI) | payer MEDICARE, SELFPAY ==
[2021-10-08 13:16] LABS: SARS-CoV-2 RNA PCR Negative (Negative)
== END 2021-10-08 10:49 | disposition home or self-care (01) ==
PROVIDERS: PCP Internal Medicine; Visit Provider Internal Medicine
DX: R68.89 Other general symptoms and signs (principal); Z20.822 Contact with and (suspected) exposure to COVID-19
CPT/HCPCS: C9803; U0003; U0005

== ENCOUNTER 2022-01-06 08:34 | Outpatient (CLI) | payer MEDICARE, SELFPAY ==
--- NOTE | 2022-01-06 08:52 | ECG_ITS ---
Measurements Intervals [place] Rate: 70 P: 24 WA: 170 QRS: 53 QRSD: 121 T: 24 QT: 422 QTc: 458 Interpretive Statements SINUS RHYTHM MODERATE INTRAVENTRICULAR CONDUCTION DELAY [110+ ms QRS DURATION] MINIMAL VOLTAGE CRITERIA FOR LVH, CONSIDER NORMAL VARIANT [MEETS CRITERIA IN ONE OF: R(aVL), S(V1), R(V5), R(V5/V6)+S(V1)] ABNORMAL ECG COMPARED TO ECG 08/13/2020 11:18:19 INTRAVENTRICULAR CONDUCTION DELAY NOW PRESENT Electronically Signed On 01-06-2022 14:04:42 CDT by Pacheco Ramirez M.D.
== END 2022-01-06 08:35 | disposition home or self-care (01) ==
LOC: ANHSURGERY 08:41
PROVIDERS: PCP Internal Medicine; Visit Provider Orthopaedic Surgery
DX: Z01.818 Encounter for other preprocedural examination (principal); I45.9 Conduction disorder, unspecified; I10 Essential (primary) hypertension
CPT/HCPCS: 93005

== ENCOUNTER 2022-01-12 01:24 | Day surgery (SDC) | payer MEDICARE, SELFPAY ==
[2022-01-01 09:19] VITALS: BMI 32.3
--- NOTE | 2022-01-01 09:37 | PC.NURSE ---
Addendum entered by Cece Hatfield RN 01/01/22 09:43: NO NEED TO HOLD ASPIRIN PER DR MANRIQUEZ. Original Note: Report to the Outpatient Waiting Room, entrance under the green pavilion located off [facility], at time __6:00AM on date __01/12/22 . OR Time: _7:30AM . - You and your visitor will be asked a series of questions to screen for COVID 19 for your protection. - A mask is required within the hospital. Preoperative COVID Testing Requirements: No COVID Test needed if: (proof is required; if not received patient will have Rapid Test prior to entry) - Patient has received COVID Vaccine at least 14 days prior to procedure date or - Patient has positive COVID test result within last 90 days of surgery date. COVID Test needed if above criteria is not met If not COVID vaccinated a COVID test must be conducted within 72 hours of surgery and patient is asked to isolate self from time of testing until procedure. You will go to the [employer] [facility] Testing Site for your COVID testing. The [employer] [facility] is located at the corner of [address] [facility]. You will only be called if COVID results are positive and your surgeon may reschedule your elective surgery date. Patients may have clear liquids (water, carbonated beverages, clear teas, apple juice) until 3 hours prior to surgery with a maximum of 20 ounces. - No food from midnight until time of surgery - Infants may have breast milk until 4 hours before surgery, formula 6 hours prior to surgery. - Children will be allowed to drink immediately following surgery. If applicable, please bring a bottle or sippy cup to assist with drinking. Juice, water, soda, and popsicles are readily available. For infants on formula, please bring formula the day of surgery. Pacifiers are allowed. Take the following medications with a SIP of water the morning of surgery: ___NONE Medications to discontinue per physician ALL VITAMINS/SUPPLEMENTS 3 DAYS PRE-OP Date to take last dose 01/08/22 Please no make-up, nail angolan, hairspray, perfume, deodorant, or body powder the day of surgery. No jewelry (including any body piercings) or valuables the day of surgery, leave them at home. Please take a shower or bath the night before, or the morning of, surgery with an antibacterial soap. Wear comfortable, loose fitting clothing. Children are encouraged to wear pajamas. - Jewelry must be removed prior to entering the operating room. Rings and piercings that are not removed may be cut off. - The hospital will not accept responsibility for valuables. - Please leave all valuables, including medications, at home the day of surgery. If you are going home after surgery, a licensed straddle bug driver must drive you home. - NO public transportation without another adult. - We recommend that an adult stay with you for 24 hours following discharge. - We also recommend that you do not drive, make important decision, drink alcoholic beverages, or take any drugs that were not prescribed by your health care provider for at least 24 hours after your discharge time. For Pediatric surgeries, we recommend two adults accompany the child home (only one inside the building at this time). One visitor will be allowed to accompany the patient into the hospital. Patients visitor will be instructed to remain with patient at all times or leave the building. We will allow the visitor to come back to the postoperative area when patient is ready. Follow any additional instructions given to you from your surgeon. Telephone instructions given to __PATIENTS and asked if any additional questions and then verbalized understanding. Patient advised to call surgeon office or pre surgery nurse liaison [phone] if any additional questions.
--- NOTE | 2022-01-12 08:08 | WPDANESEPPF ---
Anes - Initial Pre Proc Eval Procedure: Operation Date: 01/12/22 10:30 Proposed Procedures p Right Fourth Trigger Finger Release - Marek Pierce MD Date/Time: 01/12/22 08:08 Surgeon: Marek Pierce MD Pre Op Diagnosis: right 4th trigger finger Patient Data Age: 71 Gender: M Height: 1.8 m Weight: 105 kg Allergies Allergy/AdvReac Type Severity Reaction Status Date / Time Antihistamines - Alkylamine AdvReac Mild hyperactivi Verified 01/12/22 09:00 ty Xvqrsai-PYI-JzE Reductase AdvReac Unknown LEG/FEET Verified 01/12/22 09:00 Inhibitor PAIN [Ogkmkpc-Jbn-Xow Reductase Inhibitor] Home Medications Medication Instructions Recorded Confirmed Type Lactobacillus 1 cap PO DAILY 09/06/19 01/12/22 History acidophilus-Bifidobac.animalis 10 billion cell capsule valacyclovir 1 gram tablet 2,000 mg PO PRN PRN tablet 09/06/19 01/10/22 History aspirin 81 mg tablet,delayed 81 mg PO DAILY 12/08/20 01/12/22 History release red yeast rice 600 mg tablet 600 mg PO DAILY 05/20/21 01/12/22 History candesartan 8 mg tablet 8 mg PO BID 12/18/21 01/12/22 History hydrocortisone 2.5 % topical cream 1 applic RECTAL DAILY PRN #30 g 12/28/21 01/12/22 Rx with perineal applicator cholecalciferol (vitamin D3) 6,000 unit PO DAILY 01/01/22 01/12/22 History omega 3-fxg-srj-fish oil [Fish Oil] 2 cap PO DAILY 01/01/22 01/12/22 History pantoprazole 40 mg PO DAILY 01/01/22 01/12/22 History Patient hx anesthesia problems: none Family hx anesthesia problems: none Results Review: All pre-operative results and documents have been reviewed as part of the pre-operative evaluation. [facility] Past Medical History Medical History Acute left ankle pain Anxiety Bladder stones BMI 31.0-31.9,adult Encounter for Medicare annual wellness exam Encounter for Medicare annual wellness exam Encounter for routine adult health examination without abnormal findings Encounter for special screening examination for neoplasm of prostate Eustachian tube dysfunction Follow up Gout Hearing loss Hematuria Hemorrhoids History of Patrick's esophagus History of varicose veins Hx of colonic polyps Hx of colonic polyps Hyperlipidemia Hypersomnolence Hypertension Melanoma Mixed hyperlipidemia On intermediate designer drug therapy Right shoulder pain RUQ abdominal pain Spermatocele Tear of medial meniscus of right knee Tendinitis of right quadriceps tendon Thrombophlebitis of superficial veins of left lower extremity Thrombosed external hemorrhoid Venous insufficiency Vitamin B12 deficiency Vitamin D deficiency Surgical History Surgical History History of carpal tunnel surgery (~06/2007) left History of carpal tunnel surgery (~10/08/11) Right History of hemorrhoidectomy (~06/2019) History of hip surgery (~09/23/16) excision bursa History of right knee surgery partial medial meniscectomy open debridement quad tendon December 24, 2020 Hx of bursectomy hip greater trochanteric bursa S/P cataract surgery 02/2015 & 04/2015 Status post phlebectomy (~09/20/18) Trigger finger of right hand Right third surgical release July 2020 Family History Family History Father Cerebrovascular accident Family history of diabetes mellitus in first degree relative Diabetes mellitus Mother Family history of chronic obstructive pulmonary disease Sibling Family history of diabetes mellitus in first degree relative Carcinoma of colon Diabetes mellitus Other Family history of arthritis Family history of diabetes mellitus Family history of gout Family history of kidney stones Family history of malignant neoplasm Hypertension Social History Social History Smoking packs per day: 0.5 Smoking cigarettes per day: 10.0
[2022-01-12 08:43] VITALS: BP 133/91; PULSE 68; RESP 20; TEMP 36.4; O2SAT 99
[2022-01-12] MEDS: ACETAMINOPHEN 500 MG TABLET 1000 MG PO (09:04)
[2022-01-12] MEDS: LACTATED RINGERS 1,000 ML 30 ML IV CONT (09:25)
[2022-01-12] MEDS: KETOROLAC 15 MG/ML VIAL (*BKC) IV PUSH (09:26)
--- NOTE | 2022-01-12 09:40 | WPDHPUPDATE1 ---
History and Physical Update Update Date/Time: 01/12/22 09:40 History and Physical has been reviewed, including an updated exam of the patient. There are NO changes in the patient's condition. Risks, benefits, and alternatives have been discussed and questions answered. Patient agrees to proceed with procedure.
[2022-01-12] MEDS: ceFAZolin 2 GM/D5W 50 ML 2 GM/50 ML BAG IVPB (10:21)
[2022-01-12] MEDS: BUPIVACAINE HCL 0.25% PF 30 ML VIAL 10 ML INFILTRATE (10:45)
[2022-01-12 11:00] VITALS: BP 107/66; PULSE 69; RESP 16; O2SAT 94
--- NOTE | 2022-01-12 11:02 | P.OP_ITS ---
Procedure Note - Detailed Date of Procedure 01/12/22 Pre-op Diagnosis right 4th trigger finger Post-op Diagnosis Same Procedure Performed Right fourth trigger finger release Surgeon Marek Pierce MD Principal Engineer Fuad Ladd Anesthesia MAC and Local Description of Procedure The patient was identified and proper site identified. He was taken to the operating room and transferred to the OR table placing supine taking care to pad the torso and extremities. IV sedation was administered. A nonsterile tourniquet was placed high on the right arm which was prepped and draped in the usual sterile fashion. Several cc of .25 % plain Marcaine was injected into the subcutaneous tissue over the A1 mayi of the right fourth digit. The extremity was exsanguinated and the tourniquet was inflated to 200 mmHg remaining up for about 9 minutes. A longitudinal incision was made over the A1 mayi. Subcutaneous tissue was bluntly dissected down to the mayi while protecting the neurovascular bundles. The A1 mayi was identified and then transected longitudinally in line with the incision and tendons. The tendons were delivered into the wound verifying the adequacy of the release. Hemostasis was carried out. The wound was irrigated with sterile saline. Skin edges were reapproximated with 4-0 nylon suture. Sterile dressing was applied. Tourniquet was released. He tolerated the procedure well and was transferred back to a cart, then taken to the recovery area in stable condition. There were no known intraoperative complications. Estimated blood loss was negligible. Perioperative antibiotics were administered. Estimated Blood Loss 1 Tourniquet Time 9 Drains No Packing No Pathology None sent Complications No immediate complications Condition Stable Disposition PACU
[2022-01-12 11:30] VITALS: BP 121/71; PULSE 64; RESP 16
== END 2022-01-12 11:55 | disposition home or self-care (01) ==
PROVIDERS: PCP Internal Medicine; Visit Provider Orthopaedic Surgery
PROC: (CPT 26055; principal; 2022-01-12 10:30)
DX: M65.341 Trigger finger, right ring finger (principal); I10 Essential (primary) hypertension; E78.2 Mixed hyperlipidemia; E55.9 Vitamin D deficiency, unspecified; E53.8 Deficiency of other specified B group vitamins; M10.9 Gout, unspecified; F41.9 Anxiety disorder, unspecified; I87.2 Venous insufficiency (chronic) (peripheral); Z87.891 Personal history of nicotine dependence; E66.9 Obesity, unspecified; Z68.31 Body mass index [BMI] 31.0-31.9, adult
CPT/HCPCS: 26055; A9270; J0690; J1885; J2250; J2704; J3010; J7120

== ENCOUNTER → 2022-06-01 09:03 | Outpatient (CLI) | payer MEDICARE, SELFPAY ==
--- NOTE | ~2022-06-01 | MR_ITS ---
EXAMINATION: MR knee LT wo con DATE: 06/01/2022 09:36 INDICATION: Left knee pain TECHNIQUE: Magnetic resonance imaging (MRI) of the left knee was performed without intravenous contra st. Sequences included coronal PD-weighted FSE, coronal PD-weighted FS FSE, sagittal T2-weighted FSE , sagittal PD-weighted FS FSE and axial PD weighted fat saturated FSE. COMPARISON: None. FINDINGS: Medial compartment: Complex tear which extends to contact the inferior articular surface of the body and posterior horn o f the medial meniscus. Partial-thickness cartilage loss along the weightbearing medial femoral condyl e with some chondral surface irregularity at the junction of the mid and posterior thirds of the dai cular surface. Mild partial-thickness cartilage loss along the medial tibial plateau with smooth pedro luis dral surface. Lateral compartment: Horizontal linear high signal intensity within the body and posterior horn of the lateral meniscus bu t which does not unambiguously contact the articular surface on contiguous images to meet strict MRI criteria for tear in this remains equivocal for either a longitudinal horizontal tear versus mucoid d egeneration. Favoring tear is a 9 x 3 x 4 mm fluid collection along the periphery of the posterior ho rn which abuts the linear increased signal suggesting a prior meniscal cyst. Articular cartilage in t he lateral compartment appears relatively preserved. Patellofemoral compartment: Tiny focus of subarticular edema-like signal change underlying a deep chondral fissure at the medial side of the lateral patellar facet. Additional mild partial thickness chondral fissuring at the media l facet without degenerative subchondral changes. Trochlear cartilage is normal. Ligaments and tendons: Anterior and posterior cruciate ligaments are normal. Mild thickening and mild increased of the proxi mal medial collateral ligament without surrounding edema consistent with likely scarring related to c hronic sprain. The fibular collateral ligament complex is normal. Moderate tendinopathy without discr ete tear at the distal patellar tendon with couple prominent heterotopic ossicles within the distal t endon and prominent enthesophytes at its anterior tibial tubercle insertion. Appearance suggests sequ mayco of childhood Trevor-Schlatter's disease. There is small amount of fluid within the underlying ugo p infrapatellar bursa consistent with bursitis. Additional mild tendinopathy at the patellar insertio ns of the proximal patellar and distal quadriceps tendons, the latter with additional small enthesoph ytes. The visualized medial and lateral hamstring tendons as well as the iliotibial band are normal. Fluid: Physiologic amount of fluid in the joint space. No loose osteochondral bodies identified. Osseous/other: Couple small low signal intensity bone islands at the medial and lateral femoral condyles. No fractur e or pathologic marrow replacing process. IMPRESSION: 1. Complex tear of the body and posterior horn of the medial meniscus. 2. Likely longitudinal horizontal tear of the body and posterior horn of the lateral meniscus with as sociated small posterior parameniscal cyst. 3. Mild medial and patellofemoral osteoarthritis with regions of moderate grade chondromalacia in the medial compartment and moderate to high-grade chondromalacia at the patella. 4. 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 Associated mild deep infrapatellar bursitis. Reviewed, dictated and finalized at location A.
== END ==
PROVIDERS: PCP Internal Medicine; Visit Provider Orthopaedic Surgery
DX: S83.232A Complex tear of medial meniscus, current injury, left knee, initial encounter (principal); X58.XXXA Exposure to other specified factors, initial encounter; M17.12 Unilateral primary osteoarthritis, left knee
CPT/HCPCS: 73721

== ENCOUNTER 2022-07-16 10:38 | Outpatient (CLI) | payer MEDICARE, SELFPAY ==
--- NOTE | ~2022-07-16 | XR_ITS ---
EXAMINATION: XR lumbar spine min 4V DATE: 07/16/2022 11:11 INDICATION: Low back pain TECHNIQUE: Anteroposterior, lateral, and bilateral oblique views of the lumbar spine, and cone-down l ateral view of the lumbosacral junction were obtained. COMPARISON: Abdomen pelvis CT dated 10/07/2020 FINDINGS: There is chronic mild anterior wedging of the L1 vertebral body. Is a vertebral body height s are otherwise maintained. There are 4 mm of stable retrolisthesis of L5 on S1 and 2 mm of stable re trolisthesis of L4 on L5. There is severe loss of intervertebral disc space height at L5-S1. The zeeshan l gas pattern is normal. There is moderate facet osteoarthritis of the lower lumbar spine. Small dege nerative osteophytes project from the anterior endplates of multiple vertebral bodies. IMPRESSION: 1. Moderate lumbar spondylosis at L5-S1 and mild spondylosis throughout the remainder of the lumbar s pine. Reviewed, dictated and finalized at location A. IMPRESSION: 1. Moderate lumbar spondylosis at L5-S1 and mild spondylosis throughout the rem ainder of the lumbar spine.
== END 2022-07-16 10:39 | disposition home or self-care (01) ==
LOC: ANHIMG 10:44
PROVIDERS: PCP Internal Medicine; Visit Provider Internal Medicine
DX: M54.50 Low back pain, unspecified (principal); M47.816 Spondylosis without myelopathy or radiculopathy, lumbar region; M43.07 Spondylolysis, lumbosacral region
CPT/HCPCS: 72110

== ENCOUNTER 2022-09-02 10:03 | Outpatient (CLI) | payer MEDICARE, SELFPAY ==
--- NOTE | 2022-09-06 11:43 | WPDHOLTEREM ---
Holter/Event Monitor Holter/Event Monitor Date of procedure: 09/02/22 Holter/Event Procedure: 48 Hr Holter Monitor Indications: Tachycardia Conclusion: 1. 48 hour holter monitor on 09/02/22. 2. Underlying rhythm is sinus rhythm. HR range 55-146 bpm; average HR 84 bpm. 3. There are 45 premature supraventricular complexes, 1 supraventricular couplet and 1 supraventricular triplet. No supraventricular tachycardia. 4. There are 2 premature ventricular complexes. No ventricular tachycardia. 5. No sinoatrial or atrioventricular blocks. No significant pauses greater than 2 seconds. 6. Patient reports symptom of cough and demonstrates sinus tachycardia at 111 bpm.
== END 2022-09-02 10:04 | disposition home or self-care (01) ==
LOC: ANHCARD 10:04
PROVIDERS: PCP Internal Medicine; Visit Provider Internal Medicine
DX: R00.0 Tachycardia, unspecified (principal)
CPT/HCPCS: 93225; 93226

== ENCOUNTER 2022-09-19 09:30 | Outpatient (CLI) | payer MEDICARE, SELFPAY ==
--- NOTE | ~2022-09-19 | MR_ITS ---
EXAMINATION: MR lumbar spine wo con, MR sacrum wo con DATE: 09/19/2022 11:25 INDICATION: Lumbar and sacral pain TECHNIQUE: 1. Magnetic resonance imaging (MRI) of the lumbar spine was performed without intravenous contrast. S equences included sagittal T2-weighted FSE, sagittal T2-weighted FS FSE, sagittal T1-weighted FSE, an d axial T2-weighted FSE. 2. MRI of the sacrum and coccyx was performed without intravenous contrast. Sequences included sagitt al PD-weighted FS FSE as well as oblique axial and coronal T1-weighted FSE and T2-weighted FS FSE. COMPARISON: Lumbar spine MR dated 12/01/2006 FINDINGS: Lumbar spine: 1-2 mm retrolisthesis L4 on L5 and 3 mm retrolisthesis L5 on S1. Unchanged chronic mild likely physio logic anterior wedging at T12 and L1. Small Schmorl's node along the superior endplate of S1. T1 hype rintense hemangioma at L1. No significant change in moderate to severe disc height loss at L5-S1 with associated fibrofatty degenerative endplate changes. Marrow signal is otherwise normal. Additional d isc desiccation and mild disc height loss at T12-L1, L3-L4 and L4-L5. The conus medullaris terminates at L1-L2. There is normal signal in the caudal spinal cord. Mild posterior epidural lipomatosis at L 2-L3 through L4-L5. Paravertebral soft tissues are unremarkable. The following disc levels are specif ically discussed: T12-L1: The disc does not extend beyond the endplate margin. There is mild bilateral facet joint oste oarthritis. There is no neural foraminal stenosis. There is no central canal stenosis. L1-L2: The disc does not extend beyond the endplate margin. There is mild bilateral facet joint osteo arthritis. There is no neural foraminal stenosis. There is no central canal stenosis. L2-L3: Disc is minimally bulging. There is mild bilateral facet joint osteoarthritis. There is no kourtney ral foraminal stenosis. There is mild central canal stenosis. L3-L4: Disc is bulging. There is mild left and mild to moderate right facet joint osteoarthritis. The re is mild bilateral neural foraminal stenosis. There is moderate central canal stenosis. L4-L5: Disc is bulging with annular fissure. There is mild to moderate bilateral facet joint osteoart hritis. There is moderate right and mild to moderate left neural foraminal stenosis. There is mild to moderate central canal stenosis. L5-S1: Disc is bulging with annular fissure. There is mild to moderate bilateral facet joint osteoart hritis. There is mild to moderate right and moderate left neural foraminal stenosis. There is no cent ral canal stenosis. Sacrum: Bone marrow signal is normal. Minimal bilateral sacroiliac osteoarthritis. No synovitis along the or erosions along the joint space to suggest inflammatory sacroiliitis. Soft tissues surrounding the sac rum and coccyx are unremarkable. IMPRESSION: 1. Interval progression of mild lumbar and moderate to severe lumbosacral spondylosis most notable fo r moderate central canal stenosis at L3-L4 and multilevel mild to moderate bilateral lumbar neural fo raminal stenosis. 2. Minimal bilateral sacroiliac osteoarthritis. Reviewed, dictated and finalized at location A. SPOOLER IMPRESSION: 1. Interval progression of mild lumbar and moderate to severe lumbosacral spond ylosis most notable for moderate central canal stenosis at L3-L4 and multilevel mild to moderate bilateral lumbar neural foraminal stenosis. 2. Minimal bilateral sacroiliac osteoarthritis.
== END 2022-09-19 09:31 | disposition home or self-care (01) ==
PROVIDERS: PCP Internal Medicine; Visit Provider Internal Medicine
DX: M47.27 Other spondylosis with radiculopathy, lumbosacral region (principal); M48.07 Spinal stenosis, lumbosacral region; M53.3 Sacrococcygeal disorders, not elsewhere classified
CPT/HCPCS: 72148; 72195

== ENCOUNTER 2023-08-26 02:52 | Day surgery (SDC) | payer MEDICARE, SELFPAY ==
[2023-08-17 10:25] VITALS: BMI 33.2
--- NOTE | 2023-08-24 12:06 | SUR.PREOP ---
Patient called regarding upcoming procedure. Reviewed preop instructions, appointment times, and procedure prep.
--- NOTE | 2023-08-25 13:39 | PM.HPGS ---
History of Present Illness History of Present Illness Consent: Risks, benefits, and alternatives have been discussed and questions answered. Patient agrees to proceed with procedure. 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 He also has a family history of colon cancer.. Review of Systems Review of Systems: All systems reviewed & are unremarkable except as noted in HPI and below PMFSH Past Medical History Medical History Acute left ankle pain Acute maxillary sinusitis Acute pansinusitis Anxiety Bladder stones BMI 31.0-31.9,adult BMI 33.0-33.9,adult DJD (degenerative joint disease) Encounter for Medicare annual wellness exam Encounter for Medicare annual wellness exam Encounter for routine adult health examination with abnormal findings Encounter for routine adult health examination without abnormal findings Eustachian tube dysfunction Follow up Gout Hearing loss Hematuria Hemorrhoids History of Patrick's esophagus History of varicose veins Hx of colonic polyps Hx of colonic polyps Hyperlipidemia Hypersomnolence Hypertension Left hip pain Lumbar canal stenosis Melanoma Mixed hyperlipidemia Nasal congestion Neural foraminal stenosis of lumbar spine On terminal carman drug therapy Personal history of COVID-19 Right arm pain Right shoulder pain RUQ abdominal pain Spermatocele Tachycardia Tear of medial meniscus of right knee Tendinitis of right quadriceps tendon Thrombophlebitis of superficial veins of left lower extremity Thrombosed external hemorrhoid Varicosities of leg Venous insufficiency Vitamin B12 deficiency Vitamin D deficiency Surgical History Surgical History History of carpal tunnel surgery (~06/2007) left History of carpal tunnel surgery (~10/08/11) Right History of hemorrhoidectomy (~06/2019) History of hip surgery (~09/23/16) excision bursa History of right knee surgery partial medial meniscectomy open debridement quad tendon December 24, 2020 Hx of bursectomy Left hip greater trochanteric bursa S/P cataract surgery 02/2015 & 04/2015 Status post phlebectomy (~09/20/18) Trigger finger of right hand Right third surgical release July 2020 Trigger finger of right hand right fourth Family History Family History Father Cerebrovascular accident Family history of diabetes mellitus in first degree relative Diabetes mellitus Mother Family history of chronic obstructive pulmonary disease Sibling Family history of diabetes mellitus in first degree relative Carcinoma of colon Diabetes mellitus Other Family history of arthritis Family history of diabetes mellitus Family history of gout Family history of kidney stones Family history of malignant neoplasm Hypertension Social History Social History Smoking packs per day: 0.25 Smoking cigarettes per day: 5.0 Years smoked: 20 Smoking pack-years: 5.00 Smoking status: Former smoker Tobacco type: cigarettes Second hand tobacco smoke exposure: No Smoking end date: 04/16/08 Additional smoking assessment comments: STATES QUIT 2001 Alcohol intake: current Drinks per week: 20 Alcohol use details: MIXED DRINKS Substance use: never Substance use type: does not use Lack of Transportation: No Lack of Food: Never True Current Housing: I Have Housing Concerned About Future Housing: No Difficulty Paying Gas/Electric Bills: No Difficulty Paying for Meds: No Currently Unemployed: No Education: Bachelor's Degree Difficulty w/ Childcare or Family Care: No Living arrangements: with family Additional living arrangements comments: Occupation/Education: retired Gender identity
--- NOTE | 2023-08-26 07:17 | WPDANESEPPF ---
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,Fam.Hx.colon ca Patient Data Age: 72 Gender: M Height: 1.8 m Weight: 108 kg Allergies Allergy/AdvReac Type Severity Reaction Status Date / Time Zxpnjqf-IOY-AbD Reductase Allergy Intermediate LEG/FEET Verified 08/26/23 07:32 Inhibitor PAIN [Liwrbhx-Dcb-Spq Reductase Inhibitor] Antihistamines - Alkylamine AdvReac Mild hyperactivi Verified 08/26/23 07:32 ty Home Medications Medication Instructions Recorded Confirmed Type Lactobacillus 1 cap PO DAILY 09/06/19 08/25/23 History acidophilus-Bifidobac.animalis 10 billion cell capsule (Digestive Probiotic) aspirin 81 mg tablet,delayed 81 mg PO DAILY 12/08/20 08/25/23 History release (Adult Low Dose Aspirin) cholecalciferol (vitamin D3) 50 6,000 unit PO DAILY 01/01/22 08/25/23 History mcg (2,000 unit) capsule omega 4-jfv-pqd-fish oil 1,000 mg 2 cap PO DAILY 01/01/22 08/25/23 History (120 mg-180 mg) capsule (Fish Oil) calcium polycarbophil 625 mg 1,250 mg PO DAILY 12/22/22 08/25/23 History tablet (FiberCon) candesartan 32 mg tablet 32 mg PO DAILY #90 tabs 01/31/23 08/25/23 Rx pantoprazole 40 mg tablet,delayed See Rx Instructions .Route 06/07/23 08/25/23 Rx release .COMPLEX #90 tabs alpha lipoic acid 600 mg capsule 600 mg PO DAILY 08/17/23 08/25/23 History vitamin B complex 1 cap PO DAILY 08/17/23 08/25/23 History hydrocortisone 2.5 % topical cream 1 applic RECTAL DAILY PRN 08/24/23 08/26/23 Rx with perineal applicator hemorrhoids #30 grams (Anusol-HC) Patient hx anesthesia problems: none Family hx anesthesia problems: none Results Review: All pre-operative results and documents have been reviewed as part of the pre-operative evaluation. PMFSH Past Medical History Medical History Acute left ankle pain Acute maxillary sinusitis Acute pansinusitis Anxiety Bladder stones BMI 31.0-31.9,adult BMI 33.0-33.9,adult DJD (degenerative joint disease) Encounter for Medicare annual wellness exam Encounter for Medicare annual wellness exam Encounter for routine adult health examination with abnormal findings Encounter for routine adult health examination without abnormal findings Eustachian tube dysfunction Follow up Gout Hearing loss Hematuria Hemorrhoids History of Patrick's esophagus History of varicose veins Hx of colonic polyps Hx of colonic polyps Hyperlipidemia Hypersomnolence Hypertension Left hip pain Lumbar canal stenosis Melanoma Mixed hyperlipidemia Nasal congestion Neural foraminal stenosis of lumbar spine On buttermaker continuous churn drug therapy Personal history of COVID-19 Right arm pain Right shoulder pain RUQ abdominal pain Spermatocele Tachycardia Tear of medial meniscus of right knee Tendinitis of right quadriceps tendon Thrombophlebitis of superficial veins of left lower extremity Thrombosed external hemorrhoid Varicosities of leg Venous insufficiency Vitamin B12 deficiency Vitamin D deficiency Surgical History Surgical History History of carpal tunnel surgery (~06/2007) left History of carpal tunnel surgery (~10/08/11) Right History of hemorrhoidectomy (~06/2019) History of hip surgery (~09/23/16) excision bursa History of right knee surgery partial medial meniscectomy open debridement quad tendon December 24, 2020 Hx of bursectomy Left hip greater trochanteric bursa S/P cataract surgery 02/2015 & 04/2015 Status post phlebectomy (~09/20/18) Trigger finger of right hand Right third surgical release July 2020 Trigger finger of right hand right fourth Family History Family History (Reviewed 08/26/23 @ 07:46
[2023-08-26 07:34] VITALS: BP 135/92; PULSE 88; RESP 20; TEMP 36.6; O2SAT 97; BMI 32.5
[2023-08-26] MEDS: LACTATED RINGERS 1,000 ML 150 ML IV CONT (07:42)
--- NOTE | 2023-08-26 07:57 | WPDANESEPPF ---
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,Fam.Hx.colon ca Patient Data Age: 72 Gender: M Height: 1.8 m Weight: 106 kg Last Vital Signs Temp 97.8 F 08/26/23 07:34 Pulse 88 08/26/23 07:34 Resp 20 08/26/23 07:34 BP 135/92 H 08/26/23 07:34 Pulse Ox 97 08/26/23 07:34 O2 Del Method Room Air 08/26/23 07:34 Allergies Allergy/AdvReac Type Severity Reaction Status Date / Time Psgknzf-SGD-GjG Reductase Allergy Intermediate LEG/FEET Verified 08/26/23 07:32 Inhibitor PAIN [Ewtujje-Svs-Myq Reductase Inhibitor] Antihistamines - Alkylamine AdvReac Mild hyperactivi Verified 08/26/23 07:32 ty Home Medications Medication Instructions Recorded Confirmed Type Lactobacillus 1 cap PO DAILY 09/06/19 08/25/23 History acidophilus-Bifidobac.animalis 10 billion cell capsule (Digestive Probiotic) aspirin 81 mg tablet,delayed 81 mg PO DAILY 12/08/20 08/25/23 History release (Adult Low Dose Aspirin) cholecalciferol (vitamin D3) 50 6,000 unit PO DAILY 01/01/22 08/25/23 History mcg (2,000 unit) capsule omega 9-rne-bxp-fish oil 1,000 mg 2 cap PO DAILY 01/01/22 08/25/23 History (120 mg-180 mg) capsule (Fish Oil) calcium polycarbophil 625 mg 1,250 mg PO DAILY 12/22/22 08/25/23 History tablet (FiberCon) candesartan 32 mg tablet 32 mg PO DAILY #90 tabs 01/31/23 08/25/23 Rx pantoprazole 40 mg tablet,delayed See Rx Instructions .Route 06/07/23 08/25/23 Rx release .COMPLEX #90 tabs alpha lipoic acid 600 mg capsule 600 mg PO DAILY 08/17/23 08/25/23 History vitamin B complex 1 cap PO DAILY 08/17/23 08/25/23 History hydrocortisone 2.5 % topical cream 1 applic RECTAL DAILY PRN 08/24/23 08/26/23 Rx with perineal applicator hemorrhoids #30 grams (Anusol-HC) Patient hx anesthesia problems: none Family hx anesthesia problems: none Results Review: All pre-operative results and documents have been reviewed as part of the pre-operative evaluation. [facility] Past Medical History Medical History Acute left ankle pain Acute maxillary sinusitis Acute pansinusitis Anxiety Bladder stones BMI 31.0-31.9,adult BMI 33.0-33.9,adult DJD (degenerative joint disease) Encounter for Medicare annual wellness exam Encounter for Medicare annual wellness exam Encounter for routine adult health examination with abnormal findings Encounter for routine adult health examination without abnormal findings Eustachian tube dysfunction Follow up Gout Hearing loss Hematuria Hemorrhoids History of Patrick's esophagus History of varicose veins Hx of colonic polyps Hx of colonic polyps Hyperlipidemia Hypersomnolence Hypertension Left hip pain Lumbar canal stenosis Melanoma Mixed hyperlipidemia Nasal congestion Neural foraminal stenosis of lumbar spine On intermediate designer drug therapy Personal history of COVID-19 Right arm pain Right shoulder pain RUQ abdominal pain Spermatocele Tachycardia Tear of medial meniscus of right knee Tendinitis of right quadriceps tendon Thrombophlebitis of superficial veins of left lower extremity Thrombosed external hemorrhoid Varicosities of leg Venous insufficiency Vitamin B12 deficiency Vitamin D deficiency Surgical History Surgical History History of carpal tunnel surgery (~06/2007) left History of carpal tunnel surgery (~10/08/11) Right History of hemorrhoidectomy (~06/2019) History of hip surgery (~09/23/16) excision bursa History of right knee surgery partial medial meniscectomy open debridement quad tendon December 24, 2020 Hx of bursectomy Left hip greater trochanteric bursa S/P cataract surgery 02/2015 & 04/2015 Stat
--- NOTE | 2023-08-26 08:26 | SUR.OPER ---
EGD start 825 end 832, Colonoscopy start 839.
[2023-08-26] MEDS: SIMETHICONE ORAL SUSPENSION 20 MG/0.3 ML 30 ML BOTTLE 0.6 ML IRRIGATION (08:46)
[2023-08-26 08:54] VITALS: BP 99/72; PULSE 82; RESP 22; O2SAT 97
[2023-08-26 09:04] VITALS: BP 97/68; PULSE 77; RESP 22; O2SAT 94
[2023-08-26 09:14] VITALS: BP 102/69; PULSE 73; RESP 18; O2SAT 98
== END 2023-08-26 09:30 | disposition home or self-care (01) ==
PROVIDERS: PCP Internal Medicine; Visit Provider Internal Medicine Gastroenterology
PROC: 0DJ08ZZ Inspection of Upper Intestinal Tract, Via Natural or Artificial Opening Endoscopic (ICD-10-PCS; CPT 43235; principal; 2023-08-26 08:30)
DX: Z12.11 Encounter for screening for malignant neoplasm of colon (principal); K64.8 Other hemorrhoids; K57.30 Diverticulosis of large intestine without perforation or abscess without bleeding; Z80.0 Family history of malignant neoplasm of digestive organs; K22.70 Barrett's esophagus without dysplasia; K44.9 Diaphragmatic hernia without obstruction or gangrene; K31.7 Polyp of stomach and duodenum; I10 Essential (primary) hypertension; E78.2 Mixed hyperlipidemia; Z79.82 Long term (current) use of aspirin; E55.9 Vitamin D deficiency, unspecified; E53.8 Deficiency of other specified B group vitamins; Z87.891 Personal history of nicotine dependence; E66.9 Obesity, unspecified; Z68.32 Body mass index [BMI] 32.0-32.9, adult
CPT/HCPCS: 43239; 43251; G0105; 88305; J2704; J7120

== ENCOUNTER 2023-10-21 13:42 | Outpatient (CLI) | payer MEDICARE, SELFPAY ==
--- NOTE | ~2023-10-21 | XR_ITS ---
XR foot LT min 3V DATE: 10/21/2023 13:38 INDICATION: Anterolateral foot pain. Possible gout. TECHNIQUE: 4 views COMPARISON: None FINDINGS: Mild hallux valgus and bunion deformity. Os tibiale externum, normal variant. No fracture or dislocation, periosteal reaction or bone destruction. No erosive change is noted. The radiographic manifestations of gout usually followed with clinical di agnosis by multiple years. Slight plantar calcaneal enthesopathy. IMPRESSION: No erosive changes Reviewed, dictated and finalized at location B. [employer] IMPRESSION: No erosive changes
[2023-10-21 14:16] LABS: CRP 5.4 mg/dL (<1.0); Uric Acid 7.3 mg/dL (3.5-8.5)
[2023-10-21 14:41] LABS: Erythrocyte Sedimentation Rate 29 mm/hr (0-20)
== END 2023-10-21 13:43 | disposition home or self-care (01) ==
PROVIDERS: PCP Internal Medicine; Visit Provider Internal Medicine
DX: M79.672 Pain in left foot (principal)
CPT/HCPCS: 36415; 73630; 84550; 85652; 86140

== ENCOUNTER 2023-10-25 18:14 | Emergency (ER) | payer MEDICARE, SELFPAY ==
--- NOTE | ~2023-10-25 | XR_ITS ---
EXAM: XR ankle LT 2V DATE: 10/25/2023 19:58 HISTORY: pain left ankle gout x9days imaging done tuesday . COMPARISON: None available. FINDINGS: Normal mineralization. No fracture or dislocation. No lytic or blastic lesion. Mild degene rative change at the tibiotalar joint and midfoot. No erosion or periosteal change. Soft tissues with in normal limits. IMPRESSION: No acute osseous finding the left ankle. Reviewed, dictated and finalized at location K. [employer]
[2023-10-25 18:39] VITALS: BP 176/105; PULSE 87; RESP 18; TEMP 36.4; O2SAT 97
[2023-10-25 21:00] VITALS: BP 168/97; PULSE 80; RESP 20; O2SAT 100
[2023-10-25 21:31] LABS: Basophils Percent Auto 0.2 % (0.2-1.2); Eosinophils Percent Auto 0.3 % (0-4.4); Hematocrit 43.3 % (42.0-52.0); Hemoglobin 14.6 g/dL (14.0-18.0); Immature Granulocyte Absolute 0.06 K/mm3 (0.00-0.031); Immature Granulocyte Percent A 0.5 % (0-0.5); Lymphocytes Absolute Auto 2.17 K/mm3 (0.9-3.2); Lymphocytes Percent Auto 19.7 % (18.3-44.2); Mean Corpuscular HGB Conc 33.7 g/dl (32-36); Mean Platelet Volume 9.8 fl (7.4-10.4); Monocytes Absolute Auto 1.2 K/mm3 (0.1-0.6); Monocytes Percent Auto 10.9 % (2.6-8.5); Neutrophils Absolute Auto 7.5 K/mm3 (1.3-6.7); Neutrophils Percent Auto 68.4 % (45.5-73.1); Platelet Count Result 244 k/mm3 (150-375); Red Blood Count 4.56 M/mm3 (4.6-6.20); Red Cell Distribution Width 11.8 % (11.5-14.5)
[2023-10-25 21:45] LABS: Alanine Aminotransferase 30 U/L (6-50); Albumin Level 4.5 g/dL (3.5-5.1); Alkaline Phosphatase 57 U/L (38-126); Anion Gap 12 mmol/L (8-16); Aspartate Amino Transferase 28 U/L (17-59); Bilirubin,Total 0.5 mg/dL (0.2-1.3); Blood Urea Nitrogen 27 mg/dL (9-20); CRP 0.9 mg/dL (<1.0); Calcium 9.3 mg/dL (8.4-10.2); Carbon Dioxide 25 mmol/L (22-30); Chloride 103 mmol/L (98-107); Estimated Glomerular Filt Rate > 60; Glucose 104 mg/dL (65-110); Potassium 4.6 mmol/L (3.4-5.0); Sodium 140 mmol/L (137-145); Uric Acid 8.1 mg/dL (3.5-8.5)
--- NOTE | 2023-10-25 21:46 | ED.GENADULT ---
HPI - General Adult General Chief complaint: Extremity Problem,Nontraumatic Stated complaint: left ankle pain-possible gout Time Seen by Provider: 10/25/23 20:43 History of Present Illness HPI narrative: Patient is a 71-year-old gentleman who presents emergency department with chief complaint of left foot/ankle pain/swelling. Patient reports that he has had a questionable history of gout in the past but has never been confirmed via fluid analysis. The patient reports that about 9 days ago he started having pain and swelling was started on a Medrol Dosepak has today and tomorrow left of the Medrol Dosepak and reports that this evening the pain got worse and reports that there had continual swelling. The patient reports no trauma does report the foot is somewhat red Related Data Home Medications Medication Instructions Recorded Confirmed Lactobacillus 1 cap PO DAILY 09/06/19 09/23/23 acidophilus-Bifidobac.animalis 10 billion cell capsule (Digestive Probiotic) aspirin 81 mg tablet,delayed 81 mg PO DAILY 12/08/20 09/23/23 release (Adult Low Dose Aspirin) cholecalciferol (vitamin D3) 50 6,000 unit PO DAILY 01/01/22 09/23/23 mcg (2,000 unit) capsule omega 7-hpu-hqg-fish oil 1,000 mg 2 cap PO DAILY 01/01/22 09/23/23 (120 mg-180 mg) capsule (Fish Oil) calcium polycarbophil 625 mg 1,250 mg PO DAILY 12/22/22 09/23/23 tablet (FiberCon) alpha lipoic acid 600 mg capsule 600 mg PO DAILY 08/17/23 09/23/23 vitamin B complex 1 cap PO DAILY 08/17/23 09/23/23 Allergies Allergy/AdvReac Type Severity Reaction Status Date / Time Nwrbhyg-LUV-IxC Reductase Allergy Intermediate LEG/FEET Verified 10/25/23 19:21 Inhibitor PAIN [Zapxqyg-Bfp-Vrc Reductase Inhibitor] Antihistamines - Alkylamine AdvReac Mild hyperactivi Verified 10/25/23 19:21 ty Review of Systems Review of Systems: A 10 system review of systems was completed on the patient and is negative except for what is stated in the HPI. Nursing and ancillary documentation was reviewed. [facility] Past Medical History Medical History Acute left ankle pain Acute maxillary sinusitis Acute pansinusitis Anxiety Bladder stones BMI 31.0-31.9,adult BMI 33.0-33.9,adult DJD (degenerative joint disease) Encounter for Medicare annual wellness exam Encounter for Medicare annual wellness exam Encounter for routine adult health examination with abnormal findings Encounter for routine adult health examination without abnormal findings Eustachian tube dysfunction Follow up Gout Hearing loss Hematuria Hemorrhoids History of Patrick's esophagus History of varicose veins Hx of colonic polyps Hx of colonic polyps Hyperlipidemia Hypersomnolence Hypertension Left hip pain Lumbar canal stenosis Melanoma Mixed hyperlipidemia Nasal congestion Neural foraminal stenosis of lumbar spine On shelter drug therapy Personal history of COVID-19 Right arm pain Right shoulder pain RUQ abdominal pain Spermatocele Tachycardia Tear of medial meniscus of right knee Tendinitis of right quadriceps tendon Thrombophlebitis of superficial veins of left lower extremity Thrombosed external hemorrhoid Varicosities of leg Venous insufficiency Vitamin B12 deficiency Vitamin D deficiency Surgical History Surgical History History of carpal tunnel surgery (~06/2007) left History of carpal tunnel surgery (~10/08/11) Right History of hemorrhoidectomy (~06/2019) History of hip surgery (~09/23/16) excision bursa History of right knee surgery partial medial meniscectomy open debridement quad tendon December 24, 2020 Hx of bursectomy Left hip greater trochanteric bursa S/P cataract surgery 02/2015 & 04/2015 Status post phlebectomy (~09/20/18) Trigger finger of right hand Right third surgical release July 2020 Trigger finger of right hand right fo
[2023-10-25 22:22] LABS: Erythrocyte Sedimentation Rate 21 mm/hr (0-20)
[2023-10-25 22:53] VITALS: BP 159/87; PULSE 87; RESP 19; O2SAT 99
[2023-10-26] MEDS: oxyCODONE/ACETAMINOPHEN (*CRX) 5-325 MG TABLET 1 TABLET PO (00:05)
[2023-10-26] MEDS: predniSONE 20 MG TABLET 60 MG PO (00:05)
[2023-10-26] MEDS: INDOMETHACIN 25 MG CAPSULE 50 MG PO (00:05)
== END 2023-10-26 00:11 | disposition home or self-care (01) ==
PROVIDERS: Emergency Provider Emergency Medicine; PCP Internal Medicine
DX: M10.9 Gout, unspecified (principal); M19.072 Primary osteoarthritis, left ankle and foot; F41.9 Anxiety disorder, unspecified; I10 Essential (primary) hypertension; E78.5 Hyperlipidemia, unspecified
CPT/HCPCS: 36415; 73600; 80053; 84550; 85025; 85652; 86140; 99283; A9270; J7512

== ENCOUNTER 2023-12-08 09:57 | Outpatient (CLI) | payer MEDICARE, SELFPAY ==
--- NOTE | ~2023-12-08 | XR_ITS ---
EXAMINATION: XR abdomen/kub 1V INDICATION: Right flank pain TECHNIQUE: Supine views of the abdomen were obtained on 2 radiographs. COMPARISON: 10/18/2017 FINDINGS: There are multiple stones of both kidneys which appear unchanged since the comparison radio graphs. There are phleboliths of the pelvis. No stones are identified in the expected location of the ureters or bladder. The visualized lung bases are clear. A suture anchor is noted in the left proxim al femur. IMPRESSION: 1. Bilateral nephrolithiasis. Reviewed, dictated and finalized at location L. [employer]ATIONS MANAGER
== END 2023-12-08 09:58 | disposition home or self-care (01) ==
PROVIDERS: PCP Internal Medicine; Visit Provider Internal Medicine
DX: N20.0 Calculus of kidney (principal)
CPT/HCPCS: 74018

== ENCOUNTER 2023-12-09 11:09 | Outpatient (CLI) | payer MEDICARE, SELFPAY | END 2023-12-09 11:10 | disposition home or self-care (01) | PROVIDERS: PCP Internal Medicine; Visit Provider Internal Medicine | DX: N20.0 Calculus of kidney (principal); I10 Essential (primary) hypertension | CPT/HCPCS: 82365; 88300 ==

== ENCOUNTER 2024-02-13 17:11 | Emergency (ER) | payer MEDICARE, SELFPAY ==
--- NOTE | ~2024-02-13 | CT_ITS ---
EXAMINATION: CT abdomen pelvis wo con DATE: 02/13/2024 19:11 INDICATION: kidney stones, feels stuck in urethra TECHNIQUE: Computed tomography (CT) of the abdomen and pelvis was performed without intravenous contr ast. Automated exposure control and iterative reconstruction technique were employed. The dose-length product was 1255.85 mGy-cm. COMPARISON: 10/07/2020. FINDINGS: Lower thorax: Unremarkable Liver: Enlarged. Diffuse fatty infiltration. Biliary/Gallbladder: Gallbladder is normal. No bile duct dilation. Pancreas: No mass or duct dilation. Spleen: Normal. Adrenals:No mass. Kidneys: Multiple bilateral nonobstructing calculi. No suspicious mass. No hydronephrosis. GI tract: Small hiatal hernia. Small uncomplicated duodenal diverticulum. No small or large bowel dil ation. Normal appendix. Diverticulosis without diverticulitis. Mesentery/Peritoneum: No ascites, mass, or free air. Retroperitoneum: No mass. Atherosclerotic abdominal aortic and/or arterial calcifications. Pelvis: Partially distended urinary bladder with mild wall thickening. Prostatomegaly with surroundin g fat stranding. Stable prostatic calcifications.. Soft Tissues: Uncomplicated fat-containing umbilical and bilateral inguinal hernias. Bones: No acute osseous finding. IMPRESSION: Hepatomegaly with steatosis. Bilateral nonobstructing nephrolithiasis. Cystitis versus urinary bladder wall thickening from outlet obstruction. Prostatomegaly with surrounding inflammatory stranding, correlate for findings of prostatitis. Reviewed, dictated and finalized at location K.
[2024-02-13 17:17] VITALS: BP 130/74; PULSE 110; RESP 18; TEMP 36.6; O2SAT 94
--- NOTE | 2024-02-13 18:20 | ED.MALEGU ---
HPI - Male Genitourinary General Chief complaint: Urogenital-Male <KATHLEEN Melchor Last Filed: 02/13/24 18:25> Stated complaint: kidney stone <KATHLEEN Melchor Last Filed: 02/13/24 18:25> Time Seen by Provider: 02/13/24 18:20 <KATHLEEN Melchor Last Filed: 02/13/24 18:25> Focused HPI: Patient is a 73 y/o male who presents to the ED with c/o penile pain. Patient has hx of frequent kidney stones. States he has passed a few small stones in the last couple months. He reports having pain in his penis for the past 2-3 days. Feels as though he has a stone caught in his urethra. C/o burning with urination, difficulty urinating, decreased urine flow. He denies any abdominal or flank pain currently. Denies vomiting, gross hematuria, fevers. Does not currently f/u with a urology. GENERAL: Well-appearing, well-nourished, and in no acute distress. HEAD: Normocephalic, atraumatic. CHEST: Clear to auscultation. ?No respiratory distress. HEART: Regular rate and rhythm.? NEURO: ?Alert and oriented x3. Patient screened in triage and initial orders placed.? ?Additional care and disposition to be based upon?diagnostic testing and treatment. <KATHLEEN Melchor Last Filed: 02/13/24 18:25> Source: patient <KATHLEEN Melchor Last Filed: 02/13/24 18:25> Mode of arrival: ambulatory <KATHLEEN Melchor Last Filed: 02/13/24 18:25> Limitations: no limitations <KATHLEEN Melchor Last Filed: 02/13/24 18:25> Related Data Home medications: Home Medications Medication Instructions Recorded Confirmed Lactobacillus 1 cap PO DAILY 09/06/19 12/22/23 acidophilus-Bifidobac.animalis 10 billion cell capsule (Digestive Probiotic) aspirin 81 mg tablet,delayed 81 mg PO DAILY 12/08/20 12/22/23 release (Adult Low Dose Aspirin) omega 2-qjl-klo-fish oil 1,000 mg 2 cap PO DAILY 01/01/22 12/22/23 (120 mg-180 mg) capsule (Fish Oil) calcium polycarbophil 625 mg 1,250 mg PO DAILY 12/22/22 12/22/23 tablet (FiberCon) alpha lipoic acid 600 mg capsule 600 mg PO DAILY 08/17/23 12/22/23 vitamin B complex 1 cap PO DAILY 08/17/23 12/22/23 cholecalciferol (vitamin D3) 50 2,000 unit PO DAILY 12/22/23 12/22/23 mcg (2,000 unit) capsule cyclosporine 0.05 % eye drops in a 1 drp EACH EYE Q12H 12/22/23 12/22/23 dropperette (Restasis) <Mable Etienne PA-C - Last Filed: 02/13/24 18:25> Allergies/Adverse reactions: Allergies Allergy/AdvReac Type Severity Reaction Status Date / Time Pnfqjmg-OUC-JpU Reductase Allergy Intermediate LEG/FEET Verified 02/13/24 21:04 Inhibitor PAIN [Nsidode-Kyp-Ewk Reductase Inhibitor] Antihistamines - Alkylamine AdvReac Mild hyperactivi Verified 02/13/24 21:04 ty <Mable Etienne PA-C - Last Filed: 02/13/24 18:25> Review of Systems Review of Systems: All systems reviewed & are unremarkable except as noted in HPI and below <Yoni Castellon MD - Last Filed: 02/13/24 22:36> [facility] Past Medical History Medical History: Medical History (Updated 02/13/24 @ 21:00 by Yoni Castellon MD) Acute left ankle pain Acute maxillary sinusitis Acute pansinusitis Anxiety Bladder stones BMI 31.0-31.9,adult BMI 33.0-33.9,adult DJD (degenerative joint disease) Dry eyes, bilateral Encounter for Medicare annual wellness exam Encounter for Medicare annual wellness exam Encounter for routine adult health examination with abnormal findings Encounter for routine adult health examination without abnormal findings Eustachian tube dysfunction Follow up Gout Hearing loss Hematuria Hemorrhoids History of Patrick's esophagus History of varicose veins Hx of colonic polyps Hx of colonic polyps Hyperlipidemia Hypersomnolence Hypertension Left hip pain Lumbar canal stenosis Melanoma Mixed hyperlipidemia Nasal congestion Neural foraminal stenosis of lumbar spine On [facility] drug
[2024-02-13 18:47] LABS: Basophils Percent Auto 0.2 % (0.2-1.2); Eosinophils Percent Auto 0.2 % (0-4.4); Hematocrit 42.1 % (42.0-52.0); Hemoglobin 14.7 g/dL (14.0-18.0); Immature Granulocyte Absolute 0.07 K/mm3 (0.00-0.031); Immature Granulocyte Percent A 0.5 % (0-0.5); Lymphocytes Absolute Auto 1.14 K/mm3 (0.9-3.2); Lymphocytes Percent Auto 8.6 % (18.3-44.2); Mean Corpuscular HGB Conc 34.9 g/dl (32-36); Mean Corpuscular Hemoglobin 33.2 pg (26-34); Mean Platelet Volume 10.4 fl (7.4-10.4); Monocytes Absolute Auto 1.1 K/mm3 (0.1-0.6); Monocytes Percent Auto 8.4 % (2.6-8.5); Neutrophils Absolute Auto 10.9 K/mm3 (1.3-6.7); Neutrophils Percent Auto 82.1 % (45.5-73.1); Platelet Count Result 117 k/mm3 (150-375); Red Blood Count 4.43 M/mm3 (4.6-6.20); Red Cell Distribution Width 12.1 % (11.5-14.5); White Blood Count 13.2 K/mm3 (4.5-10.0)
[2024-02-13 18:54] LABS: Alanine Aminotransferase 39 U/L (6-50); Albumin Level 4.7 g/dL (3.5-5.1); Alkaline Phosphatase 62 U/L (38-126); Anion Gap 7 mmol/L (4-12); Aspartate Amino Transferase 29 U/L (17-59); Bilirubin,Total 1.6 mg/dL (0.2-1.3); Blood Urea Nitrogen 29 mg/dL (9-20); Calcium 9.5 mg/dL (8.4-10.2); Carbon Dioxide 26 mmol/L (22-30); Chloride 104 mmol/L (98-107); Estimated CRCL calculation 44 ml/min; Estimated Glomerular Filt Rate 50; Glucose 106 mg/dL (65-110); Potassium 4.2 mmol/L (3.4-5.0); Sodium 137 mmol/L (137-145)
[2024-02-13 19:04] LABS: Appearance Urine Cloudy (Clear); Bacteria Urine 4+ /hpf; Bilirubin Urine Negative (Negative); Blood Urine 1+ (Negative); Color Urine Yellow (Yellow); Glucose Urine UA Negative (Negative); Ketones Urine Trace mg/dL (Negative); Leukocyte Esterase Ur 3+ LEU/UL (Negative); Nitrate Urine Positive (Negative); Protein Urine 1+ mg/dL (Negative); Specific Grav Ur 1.022 (1.001-1.035); Squamous Epithelial Cell Urine None Seen /hpf (Few); Urobilinogen Urine 0.2 mg/dL (<2.0); WBC Urine >100 /hpf (0-3); pH Urine 5.5 (5.0-9.0)
[2024-02-13 19:10] LABS: Add Urine Microscopic? YES
[2024-02-13 19:25] VITALS: BP 125/87; PULSE 113; RESP 20; TEMP 37.3; O2SAT 97
[2024-02-13] MEDS: SODIUM CHLORIDE 0.9% IV 1,000 ML 999 ML IV CONT (19:56)
[2024-02-13] MEDS: TAMSULOSIN HCL 0.4 MG CAPSULE PO (21:01)
[2024-02-13] MEDS: CIPROFLOXACIN 500 MG TAB PO (21:01)
[2024-02-13 21:03] VITALS: BP 126/81; PULSE 100; RESP 18; O2SAT 97
== END 2024-02-13 21:35 | disposition home or self-care (01) ==
PROVIDERS: Physician Assistant; Emergency Provider Emergency Medicine; PCP Internal Medicine
DX: N41.9 Inflammatory disease of prostate, unspecified (principal); N30.90 Cystitis, unspecified without hematuria; I10 Essential (primary) hypertension; I87.2 Venous insufficiency (chronic) (peripheral); E78.2 Mixed hyperlipidemia; E53.8 Deficiency of other specified B group vitamins; E55.9 Vitamin D deficiency, unspecified; K22.70 Barrett's esophagus without dysplasia; Z85.820 Personal history of malignant melanoma of skin; Z86.16 Personal history of COVID-19; Z86.010 Personal history of colon polyps; Z87.442 Personal history of urinary calculi; Z87.891 Personal history of nicotine dependence; Z98.49 Cataract extraction status, unspecified eye; Z79.82 Long term (current) use of aspirin
CPT/HCPCS: 36415; 74176; 80053; 81001; 85025; 87040; 87077; 87086; 87088; 87186; 96365; 99284; A9270; J0696; J7030

== ENCOUNTER 2024-03-13 07:50 | Inpatient (IN) | payer MEDICARE, SELFPAY ==
[2024-03-13] VITALS (13 sets, daily range): BP systolic 140–185; BP diastolic 86–101; PULSE 60–83; RESP 13–23; TEMP 35.7–37.4; O2SAT 90–100; BMI 32.1
--- NOTE | ~2024-03-13 | US_ITS ---
EXAMINATION: US abdomen limited DATE: 03/13/2024 10:47 INDICATION: Pancreatitis. TECHNIQUE: Multiple grayscale and Doppler ultrasound images of the abdomen were obtained. COMPARISON: CT abdomen and pelvis 03/13/2024 FINDINGS: The visualized portions of the head of the pancreas are normal. There is diffuse hepatic st eatosis. There is normal flow in main portal vein. The gallbladder is normal in size and contains slu dge. No visible gallstones. No gallbladder wall thickening. There is no sonographic Klein's sign. Th e common duct is normal and measures 5 mm. IMPRESSION: 1. Diffuse hepatic steatosis. Reviewed, dictated and finalized at location A.
--- NOTE | ~2024-03-13 | CT_ITS ---
EXAMINATION: CT abdomen pelvis w con DATE: 03/13/2024 09:48 INDICATION: Epigastric abdominal pain. Nausea and vomiting. Pancreatitis. TECHNIQUE: Computed tomography (CT) of the abdomen and pelvis was performed with 100 mL Omnipaque 350 intravenous contrast. Automated exposure control and iterative reconstruction technique were employe d. The dose-length product was 1382.08 mGy-cm. COMPARISON: CT abdomen and pelvis 02/13/2024 FINDINGS: The visualized portions of the lung bases demonstrate mild atelectasis. No pleural effusion . The heart size is normal. No pericardial effusion. There is a small sliding hiatal hernia. There is diffuse hepatic steatosis. The gallbladder and spleen are normal. There is fat stranding around the pancreas, consistent with acute interstitial pancreatitis. The adrenal glands are normal. There is co rtical thinning of the kidneys. There are approximately 8 stones in right kidney measuring up to 7 mm . There are approximately 8 stones in left kidney measuring up to 7 mm. The prostate is moderately en larged. There is a right inguinal hernia containing fat. There is diverticulosis of the colon without evidence of diverticulitis. There are no dilated loops of bowel. The appendix is normal. There are n o pathologically enlarged lymph nodes. There is no free intraperitoneal fluid. There is severe lower lumbar spondylosis. There is mild chronic anterior wedging of multiple vertebral bodies. IMPRESSION: 1. Acute interstitial pancreatitis. Reviewed, dictated and finalized at location A.
--- NOTE | ~2024-03-13 | XR_ITS ---
EXAMINATION: XR abdomen/kub 1V DATE: 03/14/2024 13:35 INDICATION: Abdominal distention. TECHNIQUE: A supine view of the abdomen on 2 radiographs was obtained. COMPARISON: Abdomen radiograph 12/08/2023, CT abdomen and pelvis 03/13/2024 FINDINGS: There is mildly dilated jejunum in the left abdomen. The colon is normal in caliber. IMPRESSION: 1. Mildly dilated jejunum, likely adynamic ileus. Reviewed, dictated and finalized at location A.
--- NOTE | ~2024-03-13 | XR_ITS ---
XR ankle LT 2V, XR foot LT min 3V 03/18/2024 11:11 Indication: Left foot and ankle pain Procedure: 2 views left ankle and 4 views left foot Comparison: 10/21/2023 Findings: There is a avulsion fracture superior anterior margin of the talus on the lateral view, not definitely seen on prior examination. Ankle mortise intact. Mild lateral soft tissue swelling. Lisfr anc joint intact. No other fracture is seen. Impression: 1: New avulsion fracture anterior superior margin of the talus, best seen on the lateral view. Reviewed, dictated and finalized at location B. Impression: 1: New avulsion fracture anterior superior margin of the talus, best seen on th e lateral view. Impression: 1: New avulsion fracture anterior superior margin of the talus, best seen on th e lateral view.
--- NOTE | ~2024-03-13 | XR_ITS ---
Supine and upright views of the abdomen Clinical history: Ileus COMPARISON: 03/14/2024 Findings: Bowel gas pattern is nonspecific. No evidence for obstruction or free air. No abnormal mass lesion or calcification is seen. Osseous structures are intact. Impression: Nonspecific bowel gas pattern. Reviewed, dictated and finalized at [facility]. Impression: Nonspecific bowel gas pattern.
--- NOTE | ~2024-03-13 | US_ITS ---
EXAMINATION:US venous doppler LE LT INDICATION:Left lower extremity swelling TECHNIQUE: Multiple grayscale, color flow and Doppler images of the left lower extremity deep venous systems were obtained and reviewed. COMPARISON:01/20/2018 FINDINGS: The common femoral, superficial femoral and popliteal veins demonstrate normal respiratory variation, augmentation and compressibility. Color flow is also seen within the posterior tibial, pe roneal, greater saphenous and profunda veins. IMPRESSION: 1: No lower extremity deep venous thrombosis. Reviewed, dictated and finalized at location B.
--- NOTE | 2024-03-13 08:05 | ECG_ITS ---
SEE SCANNED COPY FOR CONFIRMED REPORT MTDD
[2024-03-13 08:12] LABS: Basophils Percent Auto 0.1 % (0.2-1.2); Eosinophils Percent Auto 0.3 % (0-4.4); Hematocrit 42.3 % (42.0-52.0); Hemoglobin 14.2 g/dL (14.0-18.0); Immature Granulocyte Absolute 0.04 K/mm3 (0.00-0.031); Immature Granulocyte Percent A 0.5 % (0-0.5); Lymphocytes Absolute Auto 1.14 K/mm3 (0.9-3.2); Lymphocytes Percent Auto 14.4 % (18.3-44.2); Mean Corpuscular HGB Conc 33.6 g/dl (32-36); Mean Corpuscular Hemoglobin 32.6 pg (26-34); Mean Corpuscular Volume 97.2 fl (80-100); Mean Platelet Volume 10.3 fl (7.4-10.4); Monocytes Absolute Auto 0.5 K/mm3 (0.1-0.6); Monocytes Percent Auto 6.5 % (2.6-8.5); Neutrophils Absolute Auto 6.2 K/mm3 (1.3-6.7); Neutrophils Percent Auto 78.2 % (45.5-73.1); Platelet Count Result 145 k/mm3 (150-375); Red Blood Count 4.35 M/mm3 (4.6-6.20); Red Cell Distribution Width 12.4 % (11.5-14.5); White Blood Count 7.9 K/mm3 (4.5-10.0)
[2024-03-13] MEDS: ONDANSETRON INJ 4 MG/2 ML VIAL IV PUSH (08:12)
[2024-03-13] MEDS: SODIUM CHLORIDE 0.9% IV 1,000 ML 999 ML IV CONT ×2 (08:12→08:58)
[2024-03-13] MEDS: PANTOPRAZOLE SODIUM IV 40 MG VIAL IV PUSH ×2 (08:12→20:47)
[2024-03-13 08:27] LABS: Alanine Aminotransferase 83 U/L (6-50); Albumin Level 4.6 g/dL (3.5-5.1); Alkaline Phosphatase 88 U/L (38-126); Anion Gap 8 mmol/L (4-12); Aspartate Amino Transferase 130 U/L (17-59); Bilirubin,Total 1.6 mg/dL (0.2-1.3); Blood Urea Nitrogen 22 mg/dL (9-20); Calcium 9.4 mg/dL (8.4-10.2); Carbon Dioxide 29 mmol/L (22-30); Chloride 105 mmol/L (98-107); Estimated CRCL calculation 60 ml/min; Estimated Glomerular Filt Rate 60; Glucose 164 mg/dL (65-110); Potassium 3.9 mmol/L (3.4-5.0); Sodium 142 mmol/L (137-145)
--- NOTE | 2024-03-13 08:31 | ED.GENADULT ---
HPI - General Adult General Chief complaint: Unspecified Stated complaint: erosion of esophagus Time Seen by Provider: 03/13/24 08:02 History of Present Illness HPI narrative: 73-year-old male with alcohol history and history of gastric and duodenal ulcers presents to the emergency department for evaluation increased nausea vomiting. Patient states that he has been taking NSAIDs for ankle injury. Patient states that he did drink alcohol yesterday, he reports he drinks alcohol every day but did have increased alcohol yesterday. Patient states he took ibuprofen last night around midnight and has since had increased to with gastritis with nausea and vomiting. Patient states he did have some blood tinged emesis but denies any dark tarry stool. patient denies any prior history of pancreatitis. Related Data Home Medications Medication Instructions Recorded Confirmed Lactobacillus 1 cap PO DAILY 09/06/19 03/13/24 acidophilus-Bifidobac.animalis 10 billion cell capsule (Digestive Probiotic) aspirin 81 mg tablet,delayed 81 mg PO DAILY 12/08/20 03/13/24 release (Adult Low Dose Aspirin) omega 5-tkr-jyy-fish oil 1,000 mg 2 cap PO DAILY 01/01/22 03/13/24 (120 mg-180 mg) capsule (Fish Oil) calcium polycarbophil 625 mg 1,250 mg PO DAILY 12/22/22 03/13/24 tablet (FiberCon) alpha lipoic acid 600 mg capsule 600 mg PO DAILY 08/17/23 03/13/24 vitamin B complex 1 cap PO DAILY 08/17/23 03/13/24 cholecalciferol (vitamin D3) 50 1,000 unit PO DAILY 12/22/23 03/13/24 mcg (2,000 unit) capsule cyclosporine 0.05 % eye drops in a 1 drp EACH EYE Q12H 12/22/23 03/13/24 dropperette (Restasis) candesartan 32 mg tablet 32 mg PO DAILY 03/13/24 03/13/24 pantoprazole 40 mg tablet,delayed 40 mg PO DAILY 03/13/24 03/13/24 release Allergies Allergy/AdvReac Type Severity Reaction Status Date / Time Ummdqnk-MVH-PfA Reductase Allergy Intermediate LEG/FEET Verified 02/13/24 21:04 Inhibitor PAIN [Nhezpmb-Yqj-Ywo Reductase Inhibitor] Antihistamines - Alkylamine AdvReac Mild hyperactivi Verified 02/13/24 21:04 ty Review of Systems Review of Systems: All systems reviewed & are unremarkable except as noted in HPI and below PMFSH Past Medical History Medical History (Updated 03/13/24 @ 14:21 by Elma Chavez PA-C) Anxiety Patrick esophagus Benign prostatic hyperplasia Bladder stones Colon polyps Daily consumption of alcohol Degenerative joint disease Duodenal ulcer Gastroesophageal reflux disease Gout Hearing loss Hemorrhoids Hyperlipidemia Hypertension Kidney stones Melanoma Mixed hyperlipidemia Neural foraminal stenosis of lumbar spine Prediabetes Varicosities of leg Status post endovenous laser therapy Venous insufficiency Vitamin B12 deficiency Vitamin D deficiency Surgical History Surgical History History of bilateral carpal tunnel release History of bursectomy Left hip greater trochanteric bursa. History of cataract extraction with lens replacement History of colonoscopy with polypectomy History of hemorrhoidectomy (06/2019) History of melanoma excision History of repair of left rotator cuff History of right knee surgery (12/24/20) Partial medial meniscectomy with open debridement of quadriceps tendon. History of tonsillectomy Status post trigger finger release Family History Family History Father Cerebrovascular accident Family history of diabetes mellitus in first degree relative Diabetes mellitus Mother Family history of chronic obstructive pulmonary disease Sibling Family history of diabetes mellitus in first degree relative Carcinoma of colon Diabetes mellitus Other Family history of arthritis Family history of diabetes mellitus Family history of gout Family history of kidney stones Family history of malignant neoplasm Hypertension S
[2024-03-13 08:53] LABS: Lipase > 40000 U/L (23-300)
[2024-03-13] MEDS: METOCLOPRAMIDE HCL INJ 10 MG/2 ML VIAL IV PUSH (08:58)
[2024-03-13] MEDS: BELLADONNA ALK/PHENOB ELIX 10 ML, MAG HYDROX/ALUMINUM HYD/SIMETH 30 ML, LIDOCAINE HCL 2... PO (08:58)
[2024-03-13] MEDS: HYDROmorphone HCL INJ (*CRX) 1 MG/ML SYR 0.5 MG IV PUSH (08:58)
[2024-03-13 11:10] LABS: Appearance Urine Clear (Clear); Bacteria Urine None Seen /hpf; Bilirubin Urine Negative (Negative); Blood Urine Negative (Negative); Color Urine Yellow (Yellow); Glucose Urine UA Negative (Negative); Ketones Urine Negative (Negative); Leukocyte Esterase Ur Negative LEU/UL (Negative); Nitrate Urine Negative (Negative); Non Pathogenic Casts 0-2; Protein Urine Trace mg/dL (Negative); RBC Urine 0-2 /hpf (0-2); Squamous Epithelial Cell Urine None Seen /hpf (Few); WBC Urine 0-5 /hpf (0-3)
[2024-03-13 11:28] LABS: Add Urine Microscopic? YES
[2024-03-13 12:10] LABS: Ethanol < 10 mg/dL (<10)
--- NOTE | 2024-03-13 13:40 | PM.IMHP ---
H&P: HPI History of Present Illness Date/Time: 03/13/24 13:45 Chief Complaint: Epigastric pain, nausea, vomiting. Narrative: This is a pleasant 73-year-old male with history of Patrick esophagus, gastroesophageal reflux disease, duodenal ulcer, daily alcohol consumption, hypertension, benign prostatic hyperplasia, prediabetes, and gout who presented to the emergency department for evaluation of epigastric pain, nausea, and vomiting. The patient provides the following history. Around midnight he developed a non radiating, sharp and shooting pain in the epigastric region followed by nausea and several episodes of emesis, a couple of which were described as looking like coffee grounds. He admits that he has been taking naproxen and ibuprofen on a daily basis for couple of weeks due to pain in his right ankle. He is worried that he may be developing an ulcer again. He denies syncope, near syncope, melena, and hematochezia. No known history of gallbladder disease or prior history of pancreatitis. In the ED: He was afebrile on arrival with a blood pressure 185/91. He has been the sinus rhythm with rates in the 60s. Labs are significant for a WBC count of 7.9, hemoglobin 14.2, platelet 145, BUN 22, creatinine 1.20, glucose 164, total bilirubin 1.6, AST 130, ALT 83, lipase greater than 40,000. CT of the abdomen pelvis showed acute interstitial pancreatitis. Interventions thus far include ondansetron, metoclopramide, pantoprazole, and hydromorphone. He has been started on aggressive IV fluid rehydration and is being admitted in this setting for treatment of acute pancreatitis. Review of Systems Review of Systems: 12 systems were reviewed. No fever, chills, or sweats. No recent cold or flu symptoms. Recently treated for prostatitis. He denies ever having signs of symptoms of alcohol withdrawal. Except as documented, all other systems were reviewed and are negative. [facility] Past Medical History Medical History Anxiety Patrick esophagus Benign prostatic hyperplasia Bladder stones Colon polyps Daily consumption of alcohol Degenerative joint disease Duodenal ulcer Gastroesophageal reflux disease Gout Hearing loss Hemorrhoids Hyperlipidemia Hypertension Kidney stones Melanoma Mixed hyperlipidemia Neural foraminal stenosis of lumbar spine Prediabetes Varicosities of leg Status post endovenous laser therapy Venous insufficiency Vitamin B12 deficiency Vitamin D deficiency Surgical History Surgical History History of bilateral carpal tunnel release History of bursectomy Left hip greater trochanteric bursa. History of cataract extraction with lens replacement History of colonoscopy with polypectomy History of hemorrhoidectomy (06/2019) History of melanoma excision History of repair of left rotator cuff History of right knee surgery (12/24/20) Partial medial meniscectomy with open debridement of quadriceps tendon. History of tonsillectomy Status post trigger finger release Family History Family History Father Cerebrovascular accident Family history of diabetes mellitus in first degree relative Diabetes mellitus Mother Family history of chronic obstructive pulmonary disease Sibling Family history of diabetes mellitus in first degree relative Carcinoma of colon Diabetes mellitus Other Family history of arthritis Family history of diabetes mellitus Family history of gout Family history of kidney stones Family history of malignant neoplasm Hypertension Social History Social History Social History: Surrogate medical decision maker: Brooke (spouse) or Vinny (son) Janis. Code status: Full code. Smoking packs per day: 0.25 Smoking cigarettes per day: 5.0 Years smoked: 20 Smoking pack-y
--- NOTE | 2024-03-13 13:51 | PC.NURSE ---
This patient, Javi Bruce, was admitted to [facility] Surg Room 329-01. Patient/family oriented to hospital policies and general routines including ID bracelet, bed and alarms, visiting hours, pain management, procedures, bathroom and other care routines, personal items, smoking policy, room service/diet, and visiting hours. Information on how to activate the Rapid Response Team has been discussed. Patient/Family are encouraged to report perceived risks to care and to ask questions if they do not understand what they are told or what they should do.
[2024-03-13] MEDS: MORPHINE SULFATE (*CRX) 2 MG/ML INJ IV PUSH ×4 (14:18→21:40)
[2024-03-13] MEDS: SODIUM CHLORIDE 0.9% IV 1,000 ML 150 ML IV CONT ×2 (14:18→20:46)
[2024-03-13] MEDS: THIAMINE HCL 200 MG/2 ML VIAL 100 MG IV PUSH (14:18)
[2024-03-13] MEDS: cycloSPORINE 0.4 ML OPHTH SOLUTION 1 DROP EACH EYE (20:47)
[2024-03-14] VITALS (7 sets, daily range): BP systolic 122–151; BP diastolic 77–90; PULSE 82–96; RESP 12–20; TEMP 36.3–38.7; O2SAT 94–98
[2024-03-14] MEDS: MORPHINE SULFATE (*CRX) 4 MG/ML INJ IV PUSH ×3 (00:57→10:16)
[2024-03-14] MEDS: SODIUM CHLORIDE 0.9% IV 1,000 ML 150 ML IV CONT ×4 (04:19→22:56)
[2024-03-14 06:20] LABS: Hematocrit 36.5 % (42.0-52.0); Immature Platelet Fraction Pct 4.2 % (0.9-11.2); Mean Corpuscular HGB Conc 32.9 g/dl (32-36); Mean Corpuscular Hemoglobin 32.5 pg (26-34); Mean Corpuscular Volume 98.9 fl (80-100); Mean Platelet Volume 10.9 fl (7.4-10.4); Platelet Count Result 117 k/mm3 (150-375); Red Blood Count 3.69 M/mm3 (4.6-6.20); White Blood Count 7.3 K/mm3 (4.5-10.0)
[2024-03-14 06:42] LABS: Alanine Aminotransferase 105 U/L (6-50); Albumin Level 3.4 g/dL (3.5-5.1); Alkaline Phosphatase 59 U/L (38-126); Anion Gap 3 mmol/L (4-12); Aspartate Amino Transferase 76 U/L (17-59); Bilirubin,Total 1.8 mg/dL (0.2-1.3); Blood Urea Nitrogen 14 mg/dL (9-20); Calcium 7.7 mg/dL (8.4-10.2); Carbon Dioxide 29 mmol/L (22-30); Chloride 107 mmol/L (98-107); Estimated CRCL calculation 72 ml/min; Estimated Glomerular Filt Rate > 60; Glucose 94 mg/dL (65-110); Magnesium 1.7 mg/dL (1.6-2.3); Potassium 4.1 mmol/L (3.4-5.0); Sodium 139 mmol/L (137-145)
[2024-03-14 07:09] LABS: Lipase 3537 U/L (23-300)
[2024-03-14] MEDS: PANTOPRAZOLE SODIUM IV 40 MG VIAL IV PUSH ×2 (07:56→22:56)
[2024-03-14] MEDS: THIAMINE HCL 200 MG/2 ML VIAL 100 MG IV PUSH (07:56)
[2024-03-14] MEDS: cycloSPORINE 0.4 ML OPHTH SOLUTION 1 DROP EACH EYE ×2 (08:06→22:56)
--- NOTE | 2024-03-14 12:46 | P.CONGI_ITS ---
I, Jh Qureshi MD, have provided a substantive portion of the care of this patient and discussed the patient with my Nurse Practitioner. I have reviewed any new relevant radiographic and laboratory results including medications. I agree with her documentation as noted below.?I personally performed the medical decision making and much of the history and exam for this encounter. briefly, he has alcohol abuse, cano's with last EGD and colonoscopy last year using ppi daily for years. He is here with progressive upper abdominal pain and nausea, here diagnosed with pancreatitis, also had coffee ground emesis. Also abdominal distension, no recent BM. He is feeling better, npo status, plan is iv pain meds, egd in am, protonix and medical support. Needs to stop drinking, thiamine, ciwa protocol. Assessment and Plan Assessment and plan (1) Acute pancreatitis: Code(s): K85.90 - Acute pancreatitis without necrosis or infection, unspecified Status: Acute Assessment and Plan: Admitted for acute pancreatitis with no evidence of complications. This is likely due chronic alcohol abuse other differential including duodenal ulcer disease. This is his first episode. -Abd US with sludge but normal CBD and no gallstones -Alcohol abstinence recommended -Will check triglycerides -Supportive tx and pain control recommended -Advance diet as tolerated (2) Thrombocytopenia: Code(s): D69.6 - Thrombocytopenia, unspecified Status: Acute Assessment and Plan: -Could be secondary to acute pancreatitis -US with diffuse hepatic steatosis and no cirrhosis -trend and monitor (3) Transaminitis: Code(s): R74.01 - Elevation of levels of liver transaminase levels Status: Acute Assessment and Plan: -Mixed pattern of liver enzyme elevation. Likely due to acute pancreatitis and alcohol use -will get liver work up labs -US with diffuse hepatic steatosis, no CBD dilation -Will monitor and trend. 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 Marte with 2 cm of Cano's esophagus, biops ies compatible with Cano's esophagus but no dysplasia detention PPI (7) Gastroesophageal reflux disease: Qualifiers: Esophagitis presence: without esophagitis Qualified Code(s): K21.9 - Gastro-esophageal reflux disease without esophagitis Code(s): K21.9 - Gastro-esophageal reflux disease without esophagitis Status: Chronic (8) Hypertension: Qualifiers: Hypertension type: primary hypertension Qualified Code(s): I10 - Essential (primary) hypertension Code(s): I10 - Essential (primary) hypertension Status: Acute (9) Bloating: Code(s): R14.0 - Abdominal distension (gaseous) Status: Acute Assessment and Plan: Bloated and not passing gas will get KUB (10) Epigastric pain: Code(s): R10.13 - Epigastric pain Status: Acute Assessment and Plan: Improving GI Consult Note Consult date/time: 03/14/24 12:15 Reason for
--- NOTE | 2024-03-14 12:46 | WPDGICN ---
Assessment and Plan Assessment and plan (1) Acute pancreatitis: Code(s): K85.90 - Acute pancreatitis without necrosis or infection, unspecified Status: Acute Assessment and Plan: Admitted for acute pancreatitis with no evidence of complications. This is likely due chronic alcohol abuse other differential including duodenal ulcer disease. This is his first episode. -Abd US with sludge but normal CBD and no gallstones -Alcohol abstinence recommended -Will check triglycerides -Supportive tx and pain control recommended -Advance diet as tolerated (2) Thrombocytopenia: Code(s): D69.6 - Thrombocytopenia, unspecified Status: Acute Assessment and Plan: -Could be secondary to acute pancreatitis -US with diffuse hepatic steatosis and no cirrhosis -trend and monitor (3) Transaminitis: Code(s): R74.01 - Elevation of levels of liver transaminase levels Status: Acute Assessment and Plan: -Mixed pattern of liver enzyme elevation. Likely due to acute pancreatitis and alcohol use -will get liver work up labs -US with diffuse hepatic steatosis, no CBD dilation -Will monitor and trend. 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 Marte with 2 cm of Patrick's esophagus, biopsies compatible with Patrick's esophagus but no dysplasia long-term PPI (7) Gastroesophageal reflux disease: Qualifiers: Esophagitis presence: without esophagitis Qualified Code(s): K21.9 - Gastro-esophageal reflux disease without esophagitis Code(s): K21.9 - Gastro-esophageal reflux disease without esophagitis Status: Chronic (8) Hypertension: Qualifiers: Hypertension type: primary hypertension Qualified Code(s): I10 - Essential (primary) hypertension Code(s): I10 - Essential (primary) hypertension Status: Acute (9) Bloating: Code(s): R14.0 - Abdominal distension (gaseous) Status: Acute Assessment and Plan: Bloated and not passing gas will get KUB (10) Epigastric pain: Code(s): R10.13 - Epigastric pain Status: Acute Assessment and Plan: Improving GI Consult Note Consult date/time: 03/14/24 12:15 Reason for consult: Pancreatitis. HPI: Javi Bruce is a 73 year old male asked to be seen at the request of the hospitalist for acute pancreatitis. He is a patient of Dr. Hutchins with a past medical history of GERD with Patrick's esophagus, fundic gastric polyps, diverticulosis, HTN, kidney stones, BPH, prediabetes, gout, chronic alchohol use. See list for history of surgeries. Patient presented to the ER after episodes of coffee-ground emesis along with epigastric abdominal pain. He states the pain started around midnight when he was getting ready to go to sleep and then vomited 3 different times every 1 hour, He showed me picture and consisted of pieces of food and red/brown tinged. He states he sprained his left ankle several weeks ago and over the past few weeks he has been taking a combination of diclofenac, ibuprofen and Aleve multiple times per day. He denies any worsening acid reflux leading up to this episode. He he he does feel like ibuprofen will get stuck at times but denies any dysphagia with food or liquids. He denies any black or bloody stools. He has not had BM since Tuesday, has a lot of gas discomfort and bilateral side discomfort with taking deep breaths but denies any epigastric pain or furthe
[2024-03-14 13:40] LABS: Cholesterol 174 mg/dL (0-200); HDL Direct 65 mg/dL; Triglycerides 98 mg/dL (<150)
[2024-03-14 13:50] LABS: LDL Cholesterol Direct 84 mg/dL
[2024-03-14 14:17] LABS: Iron 38 ug/dL (49-181)
[2024-03-14 14:27] LABS: Percent Iron Saturation 13 % (20-50)
[2024-03-14 16:20] LABS: Hepatitis B Surface Antigen Negative (Negative)
[2024-03-14 16:25] LABS: HAV RESULT Negative (Negative); Hepatitis B Core IgM Result Negative (Negative)
[2024-03-14 16:37] LABS: Hepatitis C Virus Antibody Negative (Negative)
--- NOTE | 2024-03-14 18:41 | PM.IMPN ---
Progress Note: A&P Assessment and Plan (1) Epigastric pain: Code(s): R10.13 - Epigastric pain Status: Acute (2) Coffee ground emesis: Code(s): K92.0 - Hematemesis Status: Acute (3) Transaminitis: Code(s): R74.01 - Elevation of levels of liver transaminase levels Status: Acute (4) Acute pancreatitis: Code(s): K85.90 - Acute pancreatitis without necrosis or infection, unspecified Status: Acute Plan Presented to ER with epigastric pain nausea and vomiting. Found to have acute pancreatitis. Plan for EGD tomorrow. Continue Protonix as well. Abdomen is distended. Possible ileus. Continue to monitor. SCDs Subjective Date/time seen: 03/14/24 18:41 Interval history: Patient feels much better and denies any symptoms except for a bloated abdomen. He had denies nausea and vomiting. His last bowel movement was on the day prior to admission. Review of Systems Review of Systems: All systems reviewed & are unremarkable except as noted in HPI and below (Subjective) Exam Const: General: comfortable and no acute distress Other: Obese Eyes: Pupils: Equal, round and reactive pupils present Resp: Effort & Inspection: normal respiratory effort Auscultation: clear to auscultation bilaterally GI: Inspection: distended GI Palp: No Tenderness to palpation present (GI) and No Guarding due to palpation present (GI) Auscultation: normal bowel sounds Extrem: General: no edema Objective Data Vital Signs Vital Signs: Vital Signs - 24 hr 03/13/24 21:11 03/14/24 05:21 03/14/24 08:00 Temperature 99.3 F 97.4 F L Pulse Rate 83 82 Pulse Rate [Monitor] 85 Respiratory Rate 14 12 Blood Pressure 150/89 H 122/78 125/90 Pulse Oximetry 95 96 Oxygen Delivery 03/14/24 08:00 03/14/24 08:00 03/14/24 14:00 Temperature 97.3 F L Pulse Rate 85 89 Pulse Rate [Monitor] Respiratory Rate 18 Blood Pressure 125/90 122/77 Pulse Oximetry 98 94 Oxygen Delivery Room Air 03/14/24 18:20 Temperature 101.7 F H Pulse Rate Pulse Rate [Monitor] Respiratory Rate Blood Pressure Pulse Oximetry Oxygen Delivery Intake/Output Intake/Output: Intake & Output 03/11/24 03/12/24 03/13/24 03/14/24 23:59 23:59 23:59 23:59 Intake Total 2970 2887.5 Output Total 4 Balance 2970 2883.5 Meds/Results Medications: Active Medications Generic Name Dose Route Start Last Admin Trade Name Freq PRN Reason Stop Dose Admin Acetaminophen 650 mg 03/14/24 18:23 Acetaminophen 325 Mg Tablet PO Q4H PRN Mild Pain (1-3) or Fever Chlordiazepoxide HCl 25 mg 03/13/24 14:25 Chlordiazepoxide (*Crx) 25 Mg Capsule PO Q8H PRN withdrawal symptoms & CIWA < 8 Cyclosporine 1 drop 03/13/24 14:30 03/14/24 08:06 Cyclosporine 0.4 Ml Ophth Solution EACH EYE 1 drop Q12HR LUI Administration Sodium Chloride 1,000 mls @ 150 mls/hr 03/13/24 11:15 03/14/24 17:05 Normal Saline Iv IV CONT 150 mls/hr .Q6H40M LUI Administration Calcium Gluconate 1,000 mg in 50 mls @ 100 mls/hr 03/14/24 18:39 Calcium Gluc 1,000 Mg/Ns 50 Ml IVPB 03/14/24 19:08 ONCE ONE Piperacillin Sod/Tazobactam Sod 4.5 gm in 100 mls @ 200 mls/hr 03/14/24 18:40 Zosyn 4.5 Gm/Ns 100 Ml IVPB Q6H LUI Morphine Sulfate 2 mg 03/13/24 21:52 Morphine Sulfate (*Crx) 2 Mg/Ml Inj IV PUSH Q2H PRN Pain Rated 4-6 Morphine Sulfate 4 mg 03/13/24 21:51 03/14/24 10:16 Morphine Sulfate (*Crx) 4 Mg/Ml Inj IV PUSH 4 mg Q4H PRN Administration Pain Rated 7-10 Ondansetron HCl 4 mg 03/13/24 11:14 Ondansetron Inj 4 Mg/2 Ml Vial IV PUSH Q4H PRN Nausea Pantoprazole Sodium 40 mg 03/13/24 21:00 03/14/24 07:56 Pantoprazole Sodium Iv 40 Mg Vial IV PUSH 40 mg Q12HR LIU Administration Senna/Docusate Sodium 1 tab 03/14/24 21:00 Senna/Docusate Sodium Tablet PO HS LUI Thiamine HCl 100 mg 03/14/24 09:0
[2024-03-14] MEDS: ACETAMINOPHEN 325 MG TABLET 650 MG PO (18:44)
[2024-03-14] MEDS: PIPERACILLIN/TAZ 4.5G/NS 100ML 4.5 GM/100 ML BAG IVPB (20:45)
[2024-03-14] MEDS: CALCIUM GLUC 1,000 MG/NS 50 ML 1,000 MG/50 ML BAG 100 MG IVPB (20:53)
[2024-03-14] MEDS: SENNA/DOCUSATE SODIUM TABLET 1 TAB PO (22:56)
[2024-03-15] VITALS (11 sets, daily range): BP systolic 103–149; BP diastolic 50–88; PULSE 57–92; RESP 15–20; TEMP 36.4–37.1; O2SAT 96–100
[2024-03-15] MEDS: MORPHINE SULFATE (*CRX) 4 MG/ML INJ IV PUSH ×2 (03:15→19:20)
[2024-03-15] MEDS: PIPERACILLIN/TAZ 4.5G/NS 100ML 4.5 GM/100 ML BAG IVPB ×5 (05:48→23:07)
[2024-03-15] MEDS: SODIUM CHLORIDE 0.9% IV 1,000 ML 150 ML IV CONT ×3 (05:48→23:07)
[2024-03-15 06:21] LABS: Basophils Percent Auto 0.2 % (0.2-1.2); Eosinophils Absolute Auto 0.1 K/mm3 (0-0.3); Eosinophils Percent Auto 0.7 % (0-4.4); Hematocrit 36.4 % (42.0-52.0); Hemoglobin 11.7 g/dL (14.0-18.0); Immature Granulocyte Absolute 0.03 K/mm3 (0.00-0.031); Immature Granulocyte Percent A 0.3 % (0-0.5); Immature Platelet Fraction Pct 3.9 % (0.9-11.2); Lymphocytes Absolute Auto 1.44 K/mm3 (0.9-3.2); Lymphocytes Percent Auto 16.1 % (18.3-44.2); Mean Corpuscular HGB Conc 32.1 g/dl (32-36); Mean Corpuscular Hemoglobin 32.2 pg (26-34); Mean Corpuscular Volume 100.3 fl (80-100); Mean Platelet Volume 10.8 fl (7.4-10.4); Monocytes Absolute Auto 0.9 K/mm3 (0.1-0.6); Monocytes Percent Auto 10.1 % (2.6-8.5); Neutrophils Absolute Auto 6.5 K/mm3 (1.3-6.7); Neutrophils Percent Auto 72.6 % (45.5-73.1); Platelet Count Result 120 k/mm3 (150-375); Red Blood Count 3.63 M/mm3 (4.6-6.20); Red Cell Distribution Width 12.6 % (11.5-14.5); White Blood Count 8.9 K/mm3 (4.5-10.0)
[2024-03-15 06:32] LABS: Alanine Aminotransferase 71 U/L (6-50); Albumin Level 3.6 g/dL (3.5-5.1); Alkaline Phosphatase 54 U/L (38-126); Anion Gap 7 mmol/L (4-12); Aspartate Amino Transferase 46 U/L (17-59); Bilirubin,Total 2.3 mg/dL (0.2-1.3); Blood Urea Nitrogen 15 mg/dL (9-20); Calcium 7.7 mg/dL (8.4-10.2); Carbon Dioxide 26 mmol/L (22-30); Chloride 105 mmol/L (98-107); Estimated CRCL calculation 69 ml/min; Estimated Glomerular Filt Rate > 60; Glucose 89 mg/dL (65-110); Magnesium 1.7 mg/dL (1.6-2.3); Potassium 3.9 mmol/L (3.4-5.0); Sodium 138 mmol/L (137-145)
[2024-03-15 06:58] LABS: Procalcitonin 0.4 ng/mL
[2024-03-15] MEDS: cycloSPORINE 0.4 ML OPHTH SOLUTION 1 DROP EACH EYE ×2 (09:47→20:38)
[2024-03-15] MEDS: ACETAMINOPHEN 325 MG TABLET 650 MG PO ×2 (09:49→23:11)
[2024-03-15] MEDS: THIAMINE HCL 200 MG/2 ML VIAL 100 MG IV PUSH (09:54)
[2024-03-15] MEDS: PANTOPRAZOLE SODIUM IV 40 MG VIAL IV PUSH (09:54)
--- NOTE | 2024-03-15 10:48 | WPDANESEPPF ---
Anes - Initial Pre Proc Eval Procedure: Operation Date: 03/15/24 15:30 Proposed Procedures p Esophagogastroduodenoscopy - Jh Qureshi MD Date/Time: 03/15/24 10:48 Surgeon: Celestine Fontana MD Pre Op Diagnosis: Acute Pancreatitis Patient Data Age: 73 Gender: M Height: 1.8 m Weight: 113.3 kg Last Vital Signs Temp 97.6 F 03/15/24 05:37 Pulse 81 03/15/24 05:37 Resp 18 03/15/24 05:37 BP 111/83 03/15/24 05:37 Pulse Ox 96 03/15/24 05:37 O2 Del Method Room Air 03/14/24 20:00 Allergies Allergy/AdvReac Type Severity Reaction Status Date / Time Sbxucut-JOV-YoW Reductase Allergy Intermediate LEG/FEET Verified 03/15/24 10:42 Inhibitor PAIN [Dtnpnhz-Btm-Tti Reductase Inhibitor] Antihistamines - Alkylamine AdvReac Mild hyperactivi Verified 03/15/24 10:42 ty Home Medications Medication Instructions Recorded Confirmed Type Lactobacillus 1 cap PO DAILY 09/06/19 03/13/24 History acidophilus-Bifidobac.animalis 10 billion cell capsule (Digestive Probiotic) aspirin 81 mg tablet,delayed 81 mg PO DAILY 12/08/20 03/13/24 History release (Adult Low Dose Aspirin) omega 4-wfa-anm-fish oil 1,000 mg 2 cap PO DAILY 01/01/22 03/13/24 History (120 mg-180 mg) capsule (Fish Oil) calcium polycarbophil 625 mg 1,250 mg PO DAILY 12/22/22 03/13/24 History tablet (FiberCon) alpha lipoic acid 600 mg capsule 600 mg PO DAILY 08/17/23 03/13/24 History vitamin B complex 1 cap PO DAILY 08/17/23 03/13/24 History cholecalciferol (vitamin D3) 50 1,000 unit PO DAILY 12/22/23 03/13/24 History mcg (2,000 unit) capsule cyclosporine 0.05 % eye drops in a 1 drp EACH EYE Q12H 12/22/23 03/13/24 History dropperette (Restasis) tamsulosin 0.4 mg capsule See Rx Instructions .Route 03/05/24 03/13/24 Rx .COMPLEX #20 caps candesartan 32 mg tablet 32 mg PO DAILY 03/13/24 03/13/24 History pantoprazole 40 mg tablet,delayed 40 mg PO DAILY 03/13/24 03/13/24 History release Laboratory Tests 03/14/24 03/14/24 03/15/24 13:05 13:06 05:43 WBC 8.9 K/mm3 (4.5-10.0) RBC 3.63 L M/mm3 (4.6-6.20) Hgb 11.7 L g/dL (14.0-18.0) Hct 36.4 L % (42.0-52.0) MCV 100.3 H fl (80-100) MCH 32.2 pg (26-34) MCHC 32.1 g/dl (32-36) RDW 12.6 % (11.5-14.5) Plt Count 120 L k/mm3 (150-375) MPV 10.8 H fl (7.4-10.4) Immature Gran % (Auto) 0.3 % (0-0.5) Neut % (Auto) 72.6 % (45.5-73.1) Lymph % (Auto) 16.1 L % (18.3-44.2) Rabun % (Auto) 10.1 H % (2.6-8.5) Eos % (Auto) 0.7 % (0-4.4) Baso % (Auto) 0.2 % (0.2-1.2) Lymph # (Auto) 1.44 K/mm3 (0.9-3.2) Rabun # (Auto) 0.9 H K/mm3 (0.1-0.6) Eos # (Auto) 0.1 K/mm3 (0-0.3) Baso # (Auto) 0.0 K/mm3 (0.0-0.1) Abs Immat Gran (auto) 0.03 K/mm3 (0.00-0.031) Absolute Neuts (auto) 6.5 K/mm3 (1.3-6.7) Absolute Nucleated RBC 0.000 K/mm3 (0.0-0.012) Nucleated RBC % 0.0 % (0.0-0.2) % Immature Plt Fraction 3.9 % (0.9-11.2) Sodium 138 mmol/L (137-145) Potassium 3.9 mmol/L (3.4-5.0) Chloride 105 mmol/L (98-107) Carbon Dioxide 26 mmol/L (22-30) Anion Gap 7 mmol/L (4-12) BUN 15 mg/dL (9-20) Creatinine 1.10 mg/dL (0.7-1.3) Estim Creat Clear Calc 69 ml/min Estimated GFR > 60 (59 - ) Glucose 89 mg/dL (65-110) Calcium 7.7 L mg/dL (8.4-10.2) Ionized Calcium Esequiel Pending Magnesium 1.7 mg/dL (1.6-2.3) Iron 38 L ug/dL (49-181) TIBC 283 ug/dL (265-497) % Saturation 13 L % (20-50) Ferritin 81.20 ng/mL (11.1-264) Total Bilirubin 2.3 H mg/dL (0.2-1.3) AST 46 U/L (17-59
[2024-03-15] MEDS: LACTATED RINGERS 1,000 ML 150 ML IV CONT (10:52)
[2024-03-15 12:03] LABS: Ceruloplasmin 29 mg/dL (14-30)
--- NOTE | 2024-03-15 14:26 | PC.NURSE ---
On 03/15/24, the BUSINESS TECHNOLOGY TEACHER, Nickie, provided care and completed [place] documentation on this patient. I have reviewed the BUSINESS TECHNOLOGY TEACHER's documentation and agree with the findings.
--- NOTE | 2024-03-15 16:19 | PM.IMPN ---
Progress Note: A&P Assessment and Plan (1) Bloating: Code(s): R14.0 - Abdominal distension (gaseous) Status: Acute (2) Coffee ground emesis: Code(s): K92.0 - Hematemesis Status: Acute (3) Thrombocytopenia: Code(s): D69.6 - Thrombocytopenia, unspecified Status: Acute (4) Epigastric pain: Code(s): R10.13 - Epigastric pain Status: Acute (5) Daily consumption of alcohol: Code(s): Z78.9 - Other specified health status Status: Acute (6) Transaminitis: Code(s): R74.01 - Elevation of levels of liver transaminase levels Status: Acute (7) Acute pancreatitis: Code(s): K85.90 - Acute pancreatitis without necrosis or infection, unspecified Status: Acute Plan This is a pleasant 73-year-old male with a history of Patrick's esophagus, GERD, duodenal ulcer, daily alcohol consumption, hypertension, BPH, prediabetes, gout who presents with epigastric pain nausea and vomiting noted to be coffee ground in character. This happened at sudden onset just prior to admission. Patient admits he was taking naproxen and ibuprofen on a daily basis for pain in his ankle since he rolled it. He denied melena/hematochezia/diarrhea. Admitted on 03/13. Acute pancreatitis -lipase on admission 40,000, repeat 3500. Abdominal pain resolved. -currently on full liquid diet. Continue to advance as tolerated. Constipation/bloating -on 03/13 the patient complained of inability to pass flatus and distended abdomen. KUB suggested ileus. Repeat KUB on 03/15 with nonspecific bowel gas pattern. He is now passing flatus. He will try to eat and we will see where he goes. Start Senokot S1 tab q.h.s. Coffee-ground emesis with a history of GERD duodenal ulcer and Patrick's esophagus -EGD with Dr. Diaz on 03/15 demonstrating Patrick's esophagus without dysplasia and hiatal hernia. -Protonix decreased from twice a day to once daily. Continue this ongoing. EGD in 3 years. Alcohol use disorder -counseled by multiple providers including the hospitalist team. Patient is willing to quit. -Librium p.r.n.. It has not been used. -thiamine and folate started. History of hypertension -currently at goal. Restart home meds as appropriate Fever -spiked a fever of 101.7 F the evening of 03/14 associated with flushing of the face. UA on admission unremarkable. Blood cultures taken. No other symptoms to point towards an etiology. Started on Zosyn. -continue Zosyn on 03/15. Can discontinue tomorrow if he continues to be stable. Leukocytosis on admission which resolved and could have been reactive. Hypocalcemia -7.7 on 03/14. -7.7 on 03/15 status post 1 g calcium gluconate. Will give another 2 g calcium gluconate. Ionized calcium level is pending Anemia, normocytic/macrocytic -noted on admission. -iron low, ferritin normal at 81. Folate 11. Vitamin B12 556 Transaminitis -continue to trend. Likely due to alcohol. Liver workup labs pending. Liver ultrasound completed demonstrating hepatic steatosis Thrombocytopenia -hepatic steatosis. Could be due to acute illness/chronic malnutrition well. FEN: Normal saline. Full liquid diet, advanced as tolerated. GI prophylaxis: Protonix 40 mg IV q.a.m. DVT prophylaxis: Lovenox 40 mg subQ q.day Lines: Peripheral IV Code Status: Full code Dispo: Stable on medical floor Subjective Date/time seen: 03/15/24 16:19 Interval history: No acute overnight events. Patient is post EGD. He feels he can tolerate a diet now. He denies abdominal pain nausea vomiting fevers chills cough or pain on urination. He is passing flatus but not stool. Review of Systems Review of Systems: All systems reviewed & are unremarkable except as noted in HPI and below (Subjective) Exam Const: General: comfortable and no acute distress Other: Obese. A&O x4. Eyes: Pupils: Equal, round and reactive pupils present Neck: Neck: supp
[2024-03-15] MEDS: ENOXAPARIN 40 MG/0.4 ML SYRINGE SUB-Q (17:09)
[2024-03-15] MEDS: CALCIUM GLUC 2,000 MG/NS 100ML 2,000 MG/100 ML BAG 100 MG IVPB (18:28)
[2024-03-15] MEDS: SENNA/DOCUSATE SODIUM TABLET 1 TAB PO (20:38)
[2024-03-16] VITALS (9 sets, daily range): BP systolic 130–152; BP diastolic 72–81; PULSE 78–92; RESP 16–21; TEMP 36.1–37.1; O2SAT 96–99
[2024-03-16] MEDS: MORPHINE SULFATE (*CRX) 4 MG/ML INJ IV PUSH ×3 (01:16→17:50)
[2024-03-16] MEDS: ACETAMINOPHEN 325 MG TABLET 650 MG PO ×3 (03:03→22:02)
[2024-03-16] MEDS: PIPERACILLIN/TAZ 4.5G/NS 100ML 4.5 GM/100 ML BAG IVPB ×2 (05:43→13:03)
[2024-03-16] MEDS: SODIUM CHLORIDE 0.9% IV 1,000 ML 150 ML IV CONT (05:44)
[2024-03-16 06:11] LABS: Basophils Percent Auto 0.1 % (0.2-1.2); Eosinophils Absolute Auto 0.1 K/mm3 (0-0.3); Eosinophils Percent Auto 0.8 % (0-4.4); Hematocrit 31.8 % (42.0-52.0); Hemoglobin 10.4 g/dL (14.0-18.0); Immature Granulocyte Absolute 0.04 K/mm3 (0.00-0.031); Immature Granulocyte Percent A 0.5 % (0-0.5); Lymphocytes Absolute Auto 1.05 K/mm3 (0.9-3.2); Lymphocytes Percent Auto 13.1 % (18.3-44.2); Mean Corpuscular HGB Conc 32.7 g/dl (32-36); Mean Corpuscular Hemoglobin 32.5 pg (26-34); Mean Corpuscular Volume 99.4 fl (80-100); Mean Platelet Volume 10.4 fl (7.4-10.4); Monocytes Percent Auto 12.3 % (2.6-8.5); Neutrophils Absolute Auto 5.9 K/mm3 (1.3-6.7); Neutrophils Percent Auto 73.2 % (45.5-73.1); Platelet Count Result 106 k/mm3 (150-375); Red Cell Distribution Width 12.5 % (11.5-14.5)
[2024-03-16 06:27] LABS: Alanine Aminotransferase 45 U/L (6-50); Albumin Level 3.1 g/dL (3.5-5.1); Alkaline Phosphatase 50 U/L (38-126); Anion Gap 4 mmol/L (4-12); Aspartate Amino Transferase 31 U/L (17-59); Bilirubin,Total 1.7 mg/dL (0.2-1.3); Blood Urea Nitrogen 11 mg/dL (9-20); Calcium 7.6 mg/dL (8.4-10.2); Carbon Dioxide 26 mmol/L (22-30); Chloride 107 mmol/L (98-107); Estimated CRCL calculation 70 ml/min; Estimated Glomerular Filt Rate > 60; Glucose 100 mg/dL (65-110); Magnesium 1.8 mg/dL (1.6-2.3); Potassium 3.6 mmol/L (3.4-5.0); Sodium 137 mmol/L (137-145)
[2024-03-16 06:50] LABS: Procalcitonin 0.4 ng/mL
[2024-03-16] MEDS: THIAMINE HCL 200 MG/2 ML VIAL 100 MG IV PUSH (09:02)
[2024-03-16] MEDS: PANTOPRAZOLE SODIUM IV 40 MG VIAL IV PUSH (09:02)
[2024-03-16] MEDS: FOLIC ACID 1 MG TABLET PO (09:03)
[2024-03-16] MEDS: cycloSPORINE 0.4 ML OPHTH SOLUTION 1 DROP EACH EYE ×2 (09:03→20:16)
[2024-03-16 10:43] LABS: Ionized Calcium 4.3 mg/dL (4.7-5.5)
--- NOTE | 2024-03-16 12:45 | P.PNAN_ITS ---
Anes - Prog Note Post-Op Date/Time: 03/16/24 12:45 Cardiovascular status: normal Respiratory status: normal Airway patency: baseline Mental status: baseline Post-Op hydration status: normal Vital Signs: Last Vital Signs Temp 36.4 C L 03/16/24 05:12 Pulse 78 03/16/24 05:12 Resp 20 03/16/24 05:12 BP 130/81 03/16/24 05:12 Pulse Ox 97 03/16/24 05:12 O2 Del Method Room Air 03/15/24 21:17 Pain Score (VAS): 1 I/O: Intake & Output 03/15/24 03/16/24 03/16/24 23:59 07:59 15:59 Intake Total 2642 1492.5 237 Output Total 1 Balance 2642 1491.5 237 Laboratory Tests 03/16/24 05:42 03/16/24 05:42 03/14/24 03/15/24 03/16/24 13:05 05:43 05:42 WBC 8.0 RBC 3.20 L Hgb 10.4 L Hct 31.8 L MCV 99.4 MCH 32.5 MCHC 32.7 RDW 12.5 Plt Count 106 L MPV 10.4 Immature Gran % (Auto) 0.5 Neut % (Auto) 73.2 H Lymph % (Auto) 13.1 L Armstrong % (Auto) 12.3 H Eos % (Auto) 0.8 Baso % (Auto) 0.1 L Lymph # (Auto) 1.05 Armstrong # (Auto) 1.0 H Eos # (Auto) 0.1 Baso # (Auto) 0.0 Abs Immat Gran (auto) 0.04 H Absolute Neuts (auto) 5.9 Absolute Nucleated RBC 0.000 Nucleated RBC % 0.0 % Immature Plt Fraction 4.0 Sodium 137 Potassium 3.6 Chloride 107 Carbon Dioxide 26 Anion Gap 4 BUN 11 Creatinine 1.10 Estim Creat Clear Calc 70 Estimated GFR > 60 Glucose 100 Calcium 7.6 L Ionized Calcium Esequiel 4.3 L Magnesium 1.8 Total Bilirubin 1.7 H AST 31 ALT 45 Alkaline Phosphatase 50 Total Protein 6.0 L Albumin 3.1 L Procalcitonin 0.4 JANETT Screen Negative Microbiology 03/14/24 20:05 Blood Blood Culture - Preliminary 03/14/24 20:05 Blood Blood Culture - Preliminary Post-procedural complaints: none Patient Feedback: Patient satisfied with anesthetic care.
--- NOTE | 2024-03-16 13:40 | WPDGIPROGNO ---
Progress Note: A&P Assessment and Plan (1) Alcoholic pancreatitis: Code(s): K85.20 - Alcohol induced acute pancreatitis without necrosis or infection Status: Acute Assessment and Plan: tolerating diet less pain but he is bloated (2) Epigastric pain: Code(s): R10.13 - Epigastric pain Status: Acute (3) Bloating: Code(s): R14.0 - Abdominal distension (gaseous) Status: Acute (4) Coffee ground emesis: Code(s): K92.0 - Hematemesis Status: Acute Assessment and Plan: egd yesterday, no signs of bleeding ppi daily egd in 3 years, awaiting cano's biopsy (5) Gastroesophageal reflux disease: Qualifiers: Esophagitis presence: without esophagitis Qualified Code(s): K21.9 - Gastro-esophageal reflux disease without esophagitis Code(s): K21.9 - Gastro-esophageal reflux disease without esophagitis Status: Chronic (6) Transaminitis: Code(s): R74.01 - Elevation of levels of liver transaminase levels Status: Acute (7) Cano's esophagus without dysplasia: Code(s): K22.70 - Cano's esophagus without dysplasia Status: Chronic Subjective Date/time seen: 03/16/24 13:40 Interval history: egd yesterday with know cano's, no signs of bleeding he is quite bloated but no much pain, tolerating diet had BM today with gout left ankle and uncomfortable Review of Systems Review of Systems: All systems reviewed & are unremarkable except as noted in HPI and below Exam Const: General: comfortable and no acute distress Other: Obese. A&O x4. HENMT: Face/Nose/Sinus: Normal nares present Eyes: Sclera: sclerae normal Neck: Neck: supple Resp: Effort & Inspection: normal respiratory effort Auscultation: clear to auscultation bilaterally Cardio: Rate: regular rate Rhythm: regular rhythm Heart sounds: no murmurs GI: Inspection: distended GI Palp: Yes Soft to palpation, No Tenderness to palpation present (GI) and No Guarding due to palpation present (GI) Auscultation: normal bowel sounds (Scant) Skin: General skin exam: normal color Neuro: Motor exam (neuro): 5/5 motor strength present throughout Extrem: General: no edema Psych: Mental Status: mental status grossly normal Objective Data Vital Signs Vital Signs: Vital Signs - 24 hr 03/15/24 14:00 03/15/24 20:00 03/15/24 20:00 Temperature 97.8 F Pulse Rate 85 85 Pulse Rate [Monitor] 82 Respiratory Rate 20 20 Blood Pressure 145/88 H 145/88 H Pulse Oximetry 98 98 Oxygen Delivery Room Air 03/15/24 20:44 03/16/24 00:00 03/15/24 21:17 Temperature 98.7 F Pulse Rate 88 Pulse Rate [Monitor] 82 Respiratory Rate 18 Blood Pressure 149/80 H 149/80 H Pulse Oximetry 100 99 Oxygen Delivery Room Air 03/16/24 04:00 03/16/24 05:12 03/16/24 13:35 Temperature 97.5 F L 97 F L Pulse Rate 78 92 Pulse Rate [Monitor] 82 Respiratory Rate 20 21 H Blood Pressure 149/80 H 130/81 143/77 H Pulse Oximetry 97 99 Oxygen Delivery Intake/Output Intake/Output: Intake & Output 03/13/24 03/14/24 03/15/24 03/16/24 23:59 23:59 23:59 23:59 Intake Total 2970 3915.0 5042 2247.5 Output Total 4 801 Balance 2970 3911.0 5042 1446.5 Meds/Results Medications: Active Medications Generic Name Dose Route Start Last Admin Trade Name Freq PRN Reason Stop Dose Admin Acetaminophen 650 mg 03/14/24 18:23 03/16/24 09:03 Acetaminophen 325 Mg Tablet PO 650 mg Q4H PRN Administration Mild Pain (1-3) or Fever Chlordiazepoxide HCl 25 mg 03/13/24 14:25 Chlordiazepoxide (*Crx) 25 Mg Capsule PO Q8H PRN withdrawal symptoms & CIWA < 8 Cyclosporine 1 drop 03/13/24 14:30 03/16/24 09:03 Cyclosporine 0.4 Ml Ophth Solution EACH EYE 1 drop Q12HR LUI Administration Enoxaparin Sodium 40 mg 03/15/24 16:20 03/16/24 09:00 Enoxaparin 40 Mg/0.4 Ml Syringe SUB-Q Not Given DAILY LUI Folic Acid 1
--- NOTE | 2024-03-16 13:55 | PM.IMPN ---
Progress Note: A&P Assessment and Plan (1) Bloating: Code(s): R14.0 - Abdominal distension (gaseous) Status: Acute (2) Coffee ground emesis: Code(s): K92.0 - Hematemesis Status: Acute (3) Thrombocytopenia: Code(s): D69.6 - Thrombocytopenia, unspecified Status: Acute (4) Epigastric pain: Code(s): R10.13 - Epigastric pain Status: Acute (5) Daily consumption of alcohol: Code(s): Z78.9 - Other specified health status Status: Acute (6) Transaminitis: Code(s): R74.01 - Elevation of levels of liver transaminase levels Status: Acute (7) Acute pancreatitis: Code(s): K85.90 - Acute pancreatitis without necrosis or infection, unspecified Status: Acute Plan This is a pleasant 73-year-old male with a history of Patrick's esophagus, GERD, duodenal ulcer, daily alcohol consumption, hypertension, BPH, prediabetes, gout who presents with epigastric pain nausea and vomiting noted to be coffee ground in character. This happened at sudden onset just prior to admission. Patient admits he was taking naproxen and ibuprofen on a daily basis for pain in his ankle since he rolled it. He denied melena/hematochezia/diarrhea. Admitted on 03/13. Laboratory workup revealed more than 40,[address] lipase. Mildly elevated LFTs. CT abdomen and pelvis with acute interstitial pancreatitis. Abdominal ultrasound showed diffuse hepatic steatosis. IV fluid was started. Abdominal pain has resolved. Repeat lipase 3500. Diet advanced. Will stop IV fluid. Patient reported bloating sensation. X-ray revealed mildly dilated jejunum likely adynamic ileus. Repeat x-ray with nonspecific bowel gas pattern 03/15/2024. 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 Continue on Protonix. Repeat EGD in 3 years Ongoing alcohol use disorder likely alcoholic pancreatitis. Continue CIWA protocol. Thiamine and folate. Librium p.r.n.. History of hypertension -currently at goal. Restart home meds as appropriate Fever -spiked a fever of 101.7 F the evening of 03/14 associated with flushing of the face. UA on admission unremarkable. Blood cultures taken. No other symptoms to point towards an etiology. Started on Zosyn. -continue Zosyn on 03/15. Leukocytosis resolved. Will stop IV Zosyn Hypocalcemia -7.7 on 03/14. -7.7 on 03/15 status post 1 g calcium gluconate. Will give another 2 g calcium gluconate. Ionized calcium level is low Anemia, normocytic/macrocytic -noted on admission. -iron low, ferritin normal at 81. Folate 11. Vitamin B12 556 some of them are hemodialysis no Transaminitis -continue to trend. Likely due to alcohol. Liver workup labs pending. Liver ultrasound completed demonstrating hepatic steatosis Thrombocytopenia -hepatic steatosis. Could be due to acute illness/chronic malnutrition well. Gout: Uric acid level has been elevated in the past. Repeat. Attempt colchicine. He is not on allopurinol DVT prophylaxis: Lovenox 40 mg subQ q.day Code Status: Full code Dispo: Await medical stability Subjective Date/time seen: 03/16/24 13:55 Interval history: Complains of left ankle pain which started since yesterday. He reports intermittent gouty attack in the past. No belly pain feel still bloated. Review of Systems Review of Systems: All systems reviewed & are unremarkable except as noted in HPI and below (Subjective) Exam Narrative: General: Well-developed, nontoxic-appearing male sitting up in bed in no acute distress HEENT: PERRL, EOMI. Sclera anicteric. Tacky mucous membranes. Neck: Supple. Respiratory: Lungs are clear to auscultation bilaterally. Cardiovascular: Regular rate and rhythm with S1-S2. Gastrointestinal: Abdomen is soft and nondistended with positive bowel sounds. Nontender Skin: Warm and dry. No rash or lesions on limited exam. Extremities: No cyanosis, clubbing, or
[2024-03-16] MEDS: CANDESARTAN CILEXETIL 16 MG TABLET 32 MG PO (15:15)
[2024-03-16] MEDS: TAMSULOSIN HCL 0.4 MG CAPSULE BY MOUTH (15:15)
[2024-03-16 16:17] LABS: Uric Acid 3.3 mg/dL (3.5-8.5)
[2024-03-16 17:13] LABS: Alpha-1-Antitrypsin, QN 206 mg/dL (83-199)
[2024-03-16] MEDS: COLCHICINE 0.6 MG TABLET PO (17:48)
[2024-03-16] MEDS: SENNA/DOCUSATE SODIUM TABLET 1 TAB PO (20:16)
--- NOTE | 2024-03-16 22:12 | PC.NURSE ---
Pt keeps stating that he thinks he may have overdid it on the morphine. Pt has IV morphine ordered for pancreatic pain; however, he has been requesting it for his ankle pain related to gout. Pt stated also repeatedly stated that his thinking is muddled and he has become fixated on the ankle pain. Pt stated he should only take Tylenol at this time because of the aforementioned reasons.
[2024-03-17] MEDS: ACETAMINOPHEN 325 MG TABLET 650 MG PO ×3 (03:49→14:30)
[2024-03-17 05:49] VITALS: BP 155/82; PULSE 85; RESP 18; TEMP 36.4; O2SAT 98
[2024-03-17 06:03] LABS: Basophils Percent Auto 0.1 % (0.2-1.2); Eosinophils Percent Auto 0.4 % (0-4.4); Hematocrit 31.1 % (42.0-52.0); Hemoglobin 10.6 g/dL (14.0-18.0); Immature Granulocyte Absolute 0.02 K/mm3 (0.00-0.031); Immature Granulocyte Percent A 0.3 % (0-0.5); Lymphocytes Absolute Auto 0.77 K/mm3 (0.9-3.2); Mean Corpuscular HGB Conc 34.1 g/dl (32-36); Mean Corpuscular Hemoglobin 32.8 pg (26-34); Mean Corpuscular Volume 96.3 fl (80-100); Mean Platelet Volume 10.4 fl (7.4-10.4); Neutrophils Absolute Auto 5.9 K/mm3 (1.3-6.7); Neutrophils Percent Auto 76.2 % (45.5-73.1); Platelet Count Result 122 k/mm3 (150-375); Red Blood Count 3.23 M/mm3 (4.6-6.20); Red Cell Distribution Width 12.3 % (11.5-14.5); White Blood Count 7.7 K/mm3 (4.5-10.0)
[2024-03-17 06:07] LABS: Alanine Aminotransferase 39 U/L (6-50); Albumin Level 3.2 g/dL (3.5-5.1); Alkaline Phosphatase 52 U/L (38-126); Anion Gap 4 mmol/L (4-12); Aspartate Amino Transferase 30 U/L (17-59); Bilirubin,Total 1.2 mg/dL (0.2-1.3); Blood Urea Nitrogen 10 mg/dL (9-20); Calcium 8.1 mg/dL (8.4-10.2); Carbon Dioxide 28 mmol/L (22-30); Chloride 106 mmol/L (98-107); Estimated CRCL calculation 84 ml/min; Estimated Glomerular Filt Rate > 60; Glucose 105 mg/dL (65-110); Lipase 331 U/L (23-300); Magnesium 1.8 mg/dL (1.6-2.3); Potassium 3.5 mmol/L (3.4-5.0); Sodium 138 mmol/L (137-145)
[2024-03-17] MEDS: COLCHICINE 0.6 MG TABLET PO ×2 (08:50→20:34)
[2024-03-17] MEDS: PANTOPRAZOLE 40 MG TABLET PO (08:50)
[2024-03-17] MEDS: ENOXAPARIN 40 MG/0.4 ML SYRINGE SUB-Q (08:51)
[2024-03-17] MEDS: CANDESARTAN CILEXETIL 16 MG TABLET 32 MG PO (08:51)
[2024-03-17] MEDS: cycloSPORINE 0.4 ML OPHTH SOLUTION 1 DROP EACH EYE ×2 (08:51→20:36)
[2024-03-17] MEDS: FOLIC ACID 1 MG TABLET PO (08:52)
[2024-03-17] MEDS: THIAMINE HCL 200 MG/2 ML VIAL 100 MG IV PUSH (08:52)
[2024-03-17] MEDS: TAMSULOSIN HCL 0.4 MG CAPSULE BY MOUTH (08:52)
--- NOTE | 2024-03-17 13:23 | WPDGIPROGNO ---
Progress Note: A&P Assessment and Plan (1) Alcoholic pancreatitis: Code(s): K85.20 - Alcohol induced acute pancreatitis without necrosis or infection Status: Acute Assessment and Plan: tolerating low fat diet, no much appetite (2) Transaminitis: Code(s): R74.01 - Elevation of levels of liver transaminase levels Status: Acute Assessment and Plan: trending down probably go home tomorrow (3) Epigastric pain: Code(s): R10.13 - Epigastric pain Status: Acute Assessment and Plan: better (4) Bloating: Code(s): R14.0 - Abdominal distension (gaseous) Status: Acute (5) Coffee ground emesis: Code(s): K92.0 - Hematemesis Status: Acute Assessment and Plan: egd no signs of bleeding, known cano's ppi daily egd in 3 years, awaiting cano's biopsy (6) Gastroesophageal reflux disease: Qualifiers: Esophagitis presence: without esophagitis Qualified Code(s): K21.9 - Gastro-esophageal reflux disease without esophagitis Code(s): K21.9 - Gastro-esophageal reflux disease without esophagitis Status: Chronic (7) Cano's esophagus without dysplasia: Code(s): K22.70 - Cano's esophagus without dysplasia Status: Chronic Assessment and Plan: ppi daily Subjective Date/time seen: 03/17/24 13:23 Interval history: still abdominal pain but has improved, gout is also better Review of Systems Review of Systems: All systems reviewed & are unremarkable except as noted in HPI and below Exam Const: General: comfortable and no acute distress HENMT: Face/Nose/Sinus: Normal nares present Eyes: Sclera: sclerae normal Neck: Neck: supple Resp: Effort & Inspection: normal respiratory effort Auscultation: clear to auscultation bilaterally Cardio: Rate: regular rate Rhythm: regular rhythm Heart sounds: no murmurs GI: Inspection: distended GI Palp: Yes Soft to palpation, No Tenderness to palpation present (GI) and No Guarding due to palpation present (GI) Auscultation: normal bowel sounds (Scant) Skin: General skin exam: normal color Neuro: Motor exam (neuro): 5/5 motor strength present throughout Extrem: General: no edema Other: less pain in left ankle Psych: Mental Status: mental status grossly normal Objective Data Vital Signs Vital Signs: Vital Signs - 24 hr 05/31/24 13:35 03/16/24 16:00 03/16/24 21:56 Temperature 97 F L 98.8 F Pulse Rate 92 89 Pulse Rate [Monitor] 80 Respiratory Rate 21 H 16 Blood Pressure 143/77 H 140/78 152/79 H Pulse Oximetry 99 96 Oxygen Delivery 03/16/24 20:15 03/16/24 21:46 03/17/24 05:49 Temperature 97.6 F Pulse Rate 85 Pulse Rate [Monitor] Respiratory Rate 18 Blood Pressure 155/82 H Pulse Oximetry 96 98 Oxygen Delivery Room Air Room Air Intake/Output Intake/Output: Intake & Output 03/14/24 03/15/24 03/16/24 03/17/24 23:59 23:59 23:59 23:59 Intake Total 3915.0 5042 4387.5 740 Output Total 4 801 700 Balance 3911.0 5042 3586.5 40 Meds/Results Medications: Active Medications Generic Name Dose Route Start Last Admin Trade Name Freq PRN Reason Stop Dose Admin Acetaminophen 650 mg 03/14/24 18:23 03/17/24 08:48 Acetaminophen 325 Mg Tablet PO 650 mg Q4H PRN Administration Mild Pain (1-3) or Fever Candesartan Cilexetil 32 mg 03/16/24 14:10 03/17/24 08:51 Candesartan Cilexetil 16 Mg Tablet PO 32 mg DAILY LUI Administration Chlordiazepoxide HCl 25 mg 03/13/24 14:25 Chlordiazepoxide (*Crx) 25 Mg Capsule PO Q8H PRN withdrawal symptoms & CIWA < 8 Colchicine 0.6 mg 03/16/24 15:35 03/17/24 08:50 Colchicine 0.6 Mg Tablet PO 0.6 mg Q12HR LUI Administration Cyclosporine 1 drop 03/13/24 14:30 03/17/24 08:51 Cyclosporine 0.4 Ml Ophth Solution EACH EYE 1 drop Q12HR LUI Administration Enoxaparin Sodium 40 mg 03/15/24 16:20 03/17/24 08:51
--- NOTE | 2024-03-17 13:44 | PM.IMPN ---
Progress Note: A&P Assessment and Plan (1) Bloating: Code(s): R14.0 - Abdominal distension (gaseous) Status: Acute (2) Coffee ground emesis: Code(s): K92.0 - Hematemesis Status: Acute (3) Thrombocytopenia: Code(s): D69.6 - Thrombocytopenia, unspecified Status: Acute (4) Epigastric pain: Code(s): R10.13 - Epigastric pain Status: Acute (5) Daily consumption of alcohol: Code(s): Z78.9 - Other specified health status Status: Acute (6) Transaminitis: Code(s): R74.01 - Elevation of levels of liver transaminase levels Status: Acute (7) Acute pancreatitis: Code(s): K85.90 - Acute pancreatitis without necrosis or infection, unspecified Status: Acute Plan This is a pleasant 73-year-old male with a history of Patrick's esophagus, GERD, duodenal ulcer, daily alcohol consumption, hypertension, BPH, prediabetes, gout who presents with epigastric pain nausea and vomiting noted to be coffee ground in character. This happened at sudden onset just prior to admission. Patient admits he was taking naproxen and ibuprofen on a daily basis for pain in his ankle since he rolled it. He denied melena/hematochezia/diarrhea. Admitted on 03/13. Laboratory workup revealed more than 40,000 lipase. Mildly elevated LFTs. CT abdomen and pelvis with acute interstitial pancreatitis. Abdominal ultrasound showed diffuse hepatic steatosis. IV fluid was started. Abdominal pain has resolved. Repeat lipase 3500. Diet advanced. Will stop IV fluid. Patient reported bloating sensation. X-ray revealed mildly dilated jejunum likely adynamic ileus. Repeat x-ray with nonspecific bowel gas pattern 03/15/2024. 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 Continue on Protonix. Repeat EGD in 3 years Ongoing alcohol use disorder likely alcoholic pancreatitis. Continue CIWA protocol. Thiamine and folate. Librium p.r.n.. History of hypertension -currently at goal. Restart home meds as appropriate Fever -spiked a fever of 101.7 F the evening of 03/14 associated with flushing of the face. UA on admission unremarkable. Blood cultures taken. No other symptoms to point towards an etiology. Started on Zosyn. -continue Zosyn on 03/15. Leukocytosis resolved. Zosyn stopped Hypocalcemia -7.7 on 03/14. -7.7 on 03/15 status post 1 g calcium gluconate. Will give another 2 g calcium gluconate. Ionized calcium level is low Anemia, normocytic/macrocytic -noted on admission. -iron low, ferritin normal at 81. Folate 11. Vitamin B12 556 some of them are hemodialysis no Transaminitis -continue to trend. Likely due to alcohol. Liver workup labs pending. Liver ultrasound completed demonstrating hepatic steatosis Thrombocytopenia -hepatic steatosis. Could be due to acute illness/chronic malnutrition well. Gout: Uric acid level has been elevated in the past. Attempt colchicine. He is not on allopurinol. Improved. Repeat uric acid level 3.7 DVT prophylaxis: Lovenox 40 mg subQ q.day Code Status: Full code Dispo: Await medical stability Subjective Date/time seen: 03/17/24 13:44 Interval history: Left foot is feeling better. Abdominal pain mild but persistent. Tolerating diet. Review of Systems Review of Systems: All systems reviewed & are unremarkable except as noted in HPI and below (Subjective) Exam Narrative: General: Well-developed, nontoxic-appearing male sitting up in bed in no acute distress HEENT: PERRL, EOMI. Sclera anicteric. Tacky mucous membranes. Neck: Supple. Respiratory: Lungs are clear to auscultation bilaterally. Cardiovascular: Regular rate and rhythm with S1-S2. Gastrointestinal: Abdomen is soft and nondistended with positive bowel sounds. Mild epigastric tenderness Skin: Warm and dry. No rash or lesions on limited exam. Extremities: No cyanosis, clubbing, or edema. Radial and
[2024-03-17 14:00] VITALS: BP 172/92; PULSE 90; RESP 16; TEMP 36.6; O2SAT 99
[2024-03-17 18:35] VITALS: BP 168/93; PULSE 95; O2SAT 98
[2024-03-17] MEDS: traMADol HCL (*CRX) 50 MG TABLET PO (18:35)
[2024-03-17] MEDS: SENNA/DOCUSATE SODIUM TABLET 1 TAB PO (20:34)
[2024-03-17] MEDS: amLODIPine BESYLATE 5 MG TABLET PO (20:34)
[2024-03-17 21:49] VITALS: BP 145/80; PULSE 98; RESP 18; TEMP 36.6; O2SAT 97
[2024-03-18] MEDS: ACETAMINOPHEN 325 MG TABLET 650 MG PO ×2 (00:40→21:22)
[2024-03-18 05:53] LABS: Basophils Percent Auto 0.1 % (0.2-1.2); Eosinophils Absolute Auto 0.1 K/mm3 (0-0.3); Eosinophils Percent Auto 0.6 % (0-4.4); Hematocrit 32.1 % (42.0-52.0); Hemoglobin 10.6 g/dL (14.0-18.0); Immature Granulocyte Absolute 0.03 K/mm3 (0.00-0.031); Immature Granulocyte Percent A 0.4 % (0-0.5); Lymphocytes Percent Auto 12.9 % (18.3-44.2); Mean Corpuscular Hemoglobin 31.6 pg (26-34); Mean Corpuscular Volume 95.8 fl (80-100); Mean Platelet Volume 10.1 fl (7.4-10.4); Monocytes Percent Auto 13.3 % (2.6-8.5); Neutrophils Absolute Auto 5.7 K/mm3 (1.3-6.7); Neutrophils Percent Auto 72.7 % (45.5-73.1); Platelet Count Result 152 k/mm3 (150-375); Red Blood Count 3.35 M/mm3 (4.6-6.20); Red Cell Distribution Width 12.2 % (11.5-14.5); White Blood Count 7.8 K/mm3 (4.5-10.0)
[2024-03-18 06:00] VITALS: BP 156/87; PULSE 94; RESP 18; TEMP 36.2; O2SAT 98
[2024-03-18 06:13] LABS: Alanine Aminotransferase 37 U/L (6-50); Albumin Level 3.2 g/dL (3.5-5.1); Alkaline Phosphatase 58 U/L (38-126); Anion Gap 6 mmol/L (4-12); Aspartate Amino Transferase 32 U/L (17-59); Bilirubin,Total 1.1 mg/dL (0.2-1.3); Blood Urea Nitrogen 13 mg/dL (9-20); Calcium 8.4 mg/dL (8.4-10.2); Carbon Dioxide 28 mmol/L (22-30); Chloride 103 mmol/L (98-107); Estimated CRCL calculation 92 ml/min; Estimated Glomerular Filt Rate > 60; Glucose 92 mg/dL (65-110); Magnesium 1.9 mg/dL (1.6-2.3); Potassium 3.2 mmol/L (3.4-5.0); Sodium 137 mmol/L (137-145)
[2024-03-18 08:00] VITALS: PULSE 94; RESP 16; O2SAT 95
[2024-03-18] MEDS: PANTOPRAZOLE 40 MG TABLET PO (09:35)
[2024-03-18] MEDS: FOLIC ACID 1 MG TABLET PO (09:35)
[2024-03-18] MEDS: CANDESARTAN CILEXETIL 16 MG TABLET 32 MG PO (09:35)
[2024-03-18] MEDS: COLCHICINE 0.6 MG TABLET PO ×2 (09:35→21:21)
[2024-03-18] MEDS: TAMSULOSIN HCL 0.4 MG CAPSULE BY MOUTH (09:35)
[2024-03-18] MEDS: amLODIPine BESYLATE 5 MG TABLET PO (09:35)
[2024-03-18] MEDS: POTASSIUM CHLORIDE 20 MEQ ER TABLET 40 MEQ PO (09:45)
[2024-03-18] MEDS: THIAMINE HCL 200 MG/2 ML VIAL 100 MG IV PUSH (09:47)
[2024-03-18] MEDS: ENOXAPARIN 40 MG/0.4 ML SYRINGE SUB-Q (09:47)
[2024-03-18] MEDS: cycloSPORINE 0.4 ML OPHTH SOLUTION 1 DROP EACH EYE ×2 (09:47→21:21)
--- NOTE | 2024-03-18 09:53 | PM.IMPN ---
Progress Note: A&P Assessment and Plan (1) Bloating: Code(s): R14.0 - Abdominal distension (gaseous) Status: Acute (2) Coffee ground emesis: Code(s): K92.0 - Hematemesis Status: Acute (3) Thrombocytopenia: Code(s): D69.6 - Thrombocytopenia, unspecified Status: Acute (4) Epigastric pain: Code(s): R10.13 - Epigastric pain Status: Acute (5) Daily consumption of alcohol: Code(s): Z78.9 - Other specified health status Status: Acute (6) Transaminitis: Code(s): R74.01 - Elevation of levels of liver transaminase levels Status: Acute (7) Acute pancreatitis: Code(s): K85.90 - Acute pancreatitis without necrosis or infection, unspecified Status: Acute Plan This is a pleasant 73-year-old male with a history of Patrick's esophagus, GERD, duodenal ulcer, daily alcohol consumption, hypertension, BPH, prediabetes, gout who presents with epigastric pain nausea and vomiting noted to be coffee ground in character. This happened at sudden onset just prior to admission. Patient admits he was taking naproxen and ibuprofen on a daily basis for pain in his ankle since he rolled it. He denied melena/hematochezia/diarrhea. Admitted on 03/13. Laboratory workup revealed more than 40,000 lipase. Mildly elevated LFTs. CT abdomen and pelvis with acute interstitial pancreatitis. Abdominal ultrasound showed diffuse hepatic steatosis. IV fluid was started. Abdominal pain has resolved. Repeat lipase 3500. Diet advanced. Will stop IV fluid. Patient reported bloating sensation. X-ray revealed mildly dilated jejunum likely adynamic ileus. Repeat x-ray with nonspecific bowel gas pattern 03/15/2024. 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 Continue on Protonix. Repeat EGD in 3 years Ongoing alcohol use disorder likely alcoholic pancreatitis. Continue CIWA protocol. Thiamine and folate. Librium p.r.n.. History of hypertension -currently at goal. Restart home meds as appropriate. Added amlodipine Fever -spiked a fever of 101.7 F the evening of 03/14 associated with flushing of the face. UA on admission unremarkable. Blood cultures taken. No other symptoms to point towards an etiology. Started on Zosyn. -continue Zosyn on 03/15. Leukocytosis resolved. Zosyn stopped Hypocalcemia -7.7 on 03/14. -7.7 on 03/15 status post 1 g calcium gluconate. Will give another 2 g calcium gluconate. Ionized calcium level is low Anemia, normocytic/macrocytic -noted on admission. -iron low, ferritin normal at 81. Folate 11. Vitamin B12 556 some of them are hemodialysis no Transaminitis -continue to trend. Likely due to alcohol. Liver workup labs pending. Liver ultrasound completed demonstrating hepatic steatosis Thrombocytopenia -hepatic steatosis. Could be due to acute illness/chronic malnutrition well. Gout: Uric acid level has been elevated in the past. Attempt colchicine. He is not on allopurinol. Improved. Repeat uric acid level 3.7 not improved. Will add prednisone discussed with him. Will also get x-rays and venous duplex DVT prophylaxis: Lovenox 40 mg subQ q.day Code Status: Full code Dispo: Await medical stability Subjective Date/time seen: 03/18/24 09:53 Interval history: Left foot is hurting more today. Abdominal pain is better. Left leg is swollen as well. No fever chills. Review of Systems Review of Systems: All systems reviewed & are unremarkable except as noted in HPI and below (Subjective) Exam Narrative: General: Well-developed, nontoxic-appearing male sitting up in bed in no acute distress HEENT: PERRL, EOMI. Sclera anicteric. Tacky mucous membranes. Neck: Supple. Respiratory: Lungs are clear to auscultation bilaterally. Cardiovascular: Regular rate and rhythm with S1-S2. Gastrointestinal: Abdomen is soft and nondistended with positive bowel sounds. Mild ep
[2024-03-18] MEDS: predniSONE 20 MG TABLET PO (11:38)
--- NOTE | 2024-03-18 12:18 | WPDGIPROGNO ---
Progress Note: A&P Assessment and Plan (1) Alcoholic pancreatitis: Code(s): K85.20 - Alcohol induced acute pancreatitis without necrosis or infection Status: Acute Assessment and Plan: tolerating low fat diet and doing better (2) Transaminitis: Code(s): R74.01 - Elevation of levels of liver transaminase levels Status: Acute Assessment and Plan: back to normal no more alcohol use (3) Epigastric pain: Code(s): R10.13 - Epigastric pain Status: Acute Assessment and Plan: almost gone (4) Gout: Qualifiers: Gout site: ankle Gout etiology: unspecified cause Chronicity: unspecified Laterality: left Qualified Code(s): M10.9 - Gout, unspecified Code(s): M10.9 - Gout, unspecified Status: Acute Assessment and Plan: by primary (5) Bloating: Code(s): R14.0 - Abdominal distension (gaseous) Status: Acute (6) Coffee ground emesis: Code(s): K92.0 - Hematemesis Status: Acute Assessment and Plan: egd no signs of bleeding, known cano's ppi daily egd in 3 years, awaiting cano's biopsy (7) Gastroesophageal reflux disease: Qualifiers: Esophagitis presence: without esophagitis Qualified Code(s): K21.9 - Gastro-esophageal reflux disease without esophagitis Code(s): K21.9 - Gastro-esophageal reflux disease without esophagitis Status: Chronic (8) Cano's esophagus without dysplasia: Code(s): K22.70 - Cano's esophagus without dysplasia Status: Chronic Assessment and Plan: ppi daily Subjective Date/time seen: 03/18/24 12:18 Interval history: abdominal discomfort almost gone, tolerating more consistent diet main complain now is left ankle pain probably from gout Review of Systems Review of Systems: All systems reviewed & are unremarkable except as noted in HPI and below Exam Const: General: comfortable and no acute distress HENMT: Face/Nose/Sinus: Normal nares present Eyes: Sclera: sclerae normal Neck: Neck: supple Resp: Effort & Inspection: normal respiratory effort Auscultation: clear to auscultation bilaterally Cardio: Rate: regular rate Rhythm: regular rhythm Heart sounds: no murmurs GI: Inspection: distended GI Palp: Yes Soft to palpation, No Tenderness to palpation present (GI) and No Guarding due to palpation present (GI) Auscultation: normal bowel sounds (Scant) Skin: General skin exam: normal color Neuro: Motor exam (neuro): 5/5 motor strength present throughout Extrem: General: no edema Other: similar pain in left ankle Psych: Mental Status: mental status grossly normal Objective Data Vital Signs Vital Signs: Vital Signs - 24 hr 03/17/24 14:00 03/17/24 18:35 03/17/24 21:49 Temperature 97.9 F 97.8 F Pulse Rate 90 95 98 Respiratory Rate 16 18 Blood Pressure 172/92 H 168/93 H 145/80 H Pulse Oximetry 99 98 97 Oxygen Delivery 03/17/24 20:00 03/18/24 06:00 Temperature 97.1 F L Pulse Rate 94 Respiratory Rate 18 Blood Pressure 156/87 H Pulse Oximetry 98 Oxygen Delivery Room Air Intake/Output Intake/Output: Intake & Output 03/15/24 03/16/24 03/17/24 03/18/24 23:59 23:59 23:59 23:59 Intake Total 5042 4387.5 2330 540 Output Total 801 700 Balance 5042 3586.5 1630 540 Meds/Results Medications: Active Medications Generic Name Dose Route Start Last Admin Trade Name Freq PRN Reason Stop Dose Admin Acetaminophen 650 mg 03/14/24 18:23 03/18/24 00:40 Acetaminophen 325 Mg Tablet PO 650 mg Q4H PRN Administration Mild Pain (1-3) or Fever Amlodipine Besylate 5 mg 03/18/24 09:00 03/18/24 09:35 Amlodipine Besylate 5 Mg Tablet PO 5 mg QAM LUI Administration Candesartan Cilexetil 32 mg 03/16/24 14:10 03/18/24 09:35 Candesartan Cilexetil 16 Mg Tablet PO 32 mg DAILY LUI Administration Chlordiazepoxide HCl 25 mg 03/13/24 14:25 Chlordiazepo
[2024-03-18 14:00] VITALS: BP 149/80; PULSE 94; RESP 16; TEMP 37.1; O2SAT 95
[2024-03-18] MEDS: SENNA/DOCUSATE SODIUM TABLET 1 TAB PO (21:21)
[2024-03-18 22:00] VITALS: BP 138/75; PULSE 91; RESP 16; TEMP 36.8; O2SAT 95
[2024-03-19 06:00] VITALS: BP 144/89; PULSE 90; RESP 16; TEMP 36.6; O2SAT 98
[2024-03-19 06:22] LABS: Basophils Percent Auto 0.3 % (0.2-1.2); Eosinophils Percent Auto 0.3 % (0-4.4); Hemoglobin 10.6 g/dL (14.0-18.0); Immature Granulocyte Absolute 0.03 K/mm3 (0.00-0.031); Immature Granulocyte Percent A 0.4 % (0-0.5); Lymphocytes Absolute Auto 1.17 K/mm3 (0.9-3.2); Lymphocytes Percent Auto 15.6 % (18.3-44.2); Mean Corpuscular HGB Conc 33.1 g/dl (32-36); Mean Corpuscular Hemoglobin 32.1 pg (26-34); Monocytes Absolute Auto 0.9 K/mm3 (0.1-0.6); Monocytes Percent Auto 11.9 % (2.6-8.5); Neutrophils Absolute Auto 5.4 K/mm3 (1.3-6.7); Neutrophils Percent Auto 71.5 % (45.5-73.1); Platelet Count Result 192 k/mm3 (150-375); Red Cell Distribution Width 12.2 % (11.5-14.5); White Blood Count 7.5 K/mm3 (4.5-10.0)
[2024-03-19 06:29] LABS: Alanine Aminotransferase 40 U/L (6-50); Albumin Level 3.2 g/dL (3.5-5.1); Alkaline Phosphatase 72 U/L (38-126); Anion Gap 5 mmol/L (4-12); Aspartate Amino Transferase 34 U/L (17-59); Bilirubin,Total 0.7 mg/dL (0.2-1.3); Blood Urea Nitrogen 17 mg/dL (9-20); Calcium 8.5 mg/dL (8.4-10.2); Carbon Dioxide 30 mmol/L (22-30); Chloride 105 mmol/L (98-107); Estimated CRCL calculation 83 ml/min; Estimated Glomerular Filt Rate > 60; Glucose 101 mg/dL (65-110); Magnesium 2.1 mg/dL (1.6-2.3); Potassium 3.2 mmol/L (3.4-5.0); Sodium 140 mmol/L (137-145)
[2024-03-19 08:00] VITALS: PULSE 86; RESP 16; O2SAT 95
[2024-03-19] MEDS: predniSONE 20 MG TABLET PO (08:31)
[2024-03-19] MEDS: TAMSULOSIN HCL 0.4 MG CAPSULE BY MOUTH (08:31)
[2024-03-19] MEDS: PANTOPRAZOLE 40 MG TABLET PO (08:31)
[2024-03-19] MEDS: CANDESARTAN CILEXETIL 16 MG TABLET 32 MG PO (08:31)
[2024-03-19] MEDS: FOLIC ACID 1 MG TABLET PO (08:31)
[2024-03-19] MEDS: COLCHICINE 0.6 MG TABLET PO (08:31)
[2024-03-19] MEDS: amLODIPine BESYLATE 5 MG TABLET PO (08:32)
[2024-03-19] MEDS: THIAMINE HCL 200 MG/2 ML VIAL 100 MG IV PUSH (08:36)
[2024-03-19] MEDS: ENOXAPARIN 40 MG/0.4 ML SYRINGE SUB-Q (08:36)
[2024-03-19] MEDS: cycloSPORINE 0.4 ML OPHTH SOLUTION 1 DROP EACH EYE (08:36)
[2024-03-19] MEDS: POTASSIUM CHLORIDE 20 MEQ ER TABLET 40 MEQ PO (09:18)
[2024-03-19] MEDS: ACETAMINOPHEN 325 MG TABLET 650 MG PO (09:22)
[2024-03-19 11:53] LABS: LKM 1 Antibody <=20.0 U (<=20.0)
[2024-03-19 13:13] LABS: Alpha Fetoprotein Tumor Marker 1.9 ng/mL (<6.1)
[2024-03-19 14:00] VITALS: BP 116/64; PULSE 86; RESP 16; TEMP 37; O2SAT 95
--- NOTE | 2024-03-19 16:33 | PM.CNOR ---
History of Present Illness HPI Consult date: 03/19/24 Chief complaint: Acute Pancreatitis Narrative: 73-year-old male who is having pain in the left midfoot. He was admitted for pancreatitis and has had treatment for that. He started developing pain in the midfoot while he has been here. Patient states that he had a trauma to it 3 weeks ago when he rolled his ankle and had some soreness lateral ankle, he was sore for a day or 2 but then the symptoms dissipated. He has had no trauma to the foot since being here. Patient states that he has had 5 or 6 episodes over the course of the last year of pain and swelling in the left ankle and foot. He has not been officially diagnosed with gout but he feels that this is most likely gout. This primary care doctor is aware of these episodes. This point he is not on any anti gout medicine. Patient had x-rays done of the ankle and the foot today show a small chip fracture or whether the dorsum of the head of the talus best seen on lateral view. X-rays ankle looked very normal. There was no significant arthritic changes in the midfoot or forefoot. Patient uric acid level was checked he was 3.3. Physical exam 73-year-old male alert pleasant. He has some mild swelling to the foot ankle. He is wearing compression socks. Complains of no numbness tingling in the toes. He has no tenderness over the dorsum of the talus. He does have [id number] tenderness at the 4th metatarsal lateral cuneiform articulation. Is no tenderness to the other metatarsals. There is no tenderness to palpation of the ankle, medial or lateral. He has no tenderness over the Achilles tendon. There is no tenderness to the 1st MTP joint. Patient has had spontaneous onset pain and soreness in the left midfoot. Does have some mild swelling there. He appears to have a history of gout, but has not been confirmed. He has been on prednisone for the last 2 days here at the hospital and he states that it is already 30% better. There is a possibility that this is gout flare up since he has been here. He had pancreatitis and is not uncommon to see gout flares happen when there is a stress to the body. Other possibility he may be developing stress fracture stress fracture in the 4th metatarsal. We provided him with a cam walker boot here and he is going to use it full-time. He will go home on another week's course of prednisone see if this continues to improve his symptoms. He is to wear the boot when he is ambulating but and may remove it to work on range of motion of the foot ankle to make sure that it is stiff. We will see him in the office in 2 weeks for re-evaluation. 30 minutes was spent in consultation the patient. [facility] Past Medical History Medical History (Updated 03/16/24 @ 13:42 by Jh Qureshi MD) Alcoholic pancreatitis Anxiety Patrick esophagus Benign prostatic hyperplasia Bladder stones Colon polyps Daily consumption of alcohol Degenerative joint disease Duodenal ulcer Gastroesophageal reflux disease Gout Hearing loss Hemorrhoids Hyperlipidemia Hypertension Kidney stones Melanoma Mixed hyperlipidemia Neural foraminal stenosis of lumbar spine Prediabetes Varicosities of leg Status post endovenous laser therapy Venous insufficiency Vitamin B12 deficiency Vitamin D deficiency Surgical History Surgical History History of bilateral carpal tunnel release History of bursectomy Left hip greater trochanteric bursa. History of cataract extraction with lens replacement History of colonoscopy with polypectomy History of hemorrhoidectomy (06/2019) History of melanoma excision History of repair of left rotator cuff History of right knee surgery (12/24/20) Partial medial meniscectomy with open debridement of quadriceps tendon. History of tonsillectomy Status post trigger finger release Family History Family History (Reviewed 03/13/24 @ 21:51 b
--- NOTE | 2024-03-19 16:53 | PM.DS ---
DS: Admitting Diagnosis Discharge Date 03/19/2024 Admitting Diagnosis Abdominal pain DS: Discharge Diagnosis Discharge Diagnosis (1) Bloating: Code(s): R14.0 - Abdominal distension (gaseous) Status: Acute (2) Coffee ground emesis: Code(s): K92.0 - Hematemesis Status: Acute (3) Thrombocytopenia: Code(s): D69.6 - Thrombocytopenia, unspecified Status: Acute (4) Epigastric pain: Code(s): R10.13 - Epigastric pain Status: Acute (5) Daily consumption of alcohol: Code(s): Z78.9 - Other specified health status Status: Acute (6) Transaminitis: Code(s): R74.01 - Elevation of levels of liver transaminase levels Status: Acute (7) Acute pancreatitis: Code(s): K85.90 - Acute pancreatitis without necrosis or infection, unspecified Status: Acute DS: Summary Hospital Course Hospital Course: This is a pleasant 73-year-old male with a history of Patrick's esophagus, GERD, duodenal ulcer, daily alcohol consumption, hypertension, BPH, prediabetes, gout who presents with epigastric pain nausea and vomiting noted to be coffee ground in character. This happened at sudden onset just prior to admission. Patient admits he was taking naproxen and ibuprofen on a daily basis for pain in his ankle since he rolled it. He denied melena/hematochezia/diarrhea. Admitted on 03/13. Laboratory workup revealed more than 40,[address] Mildly elevated L[address]. CT abdomen and pelvis with acute interstitial pancreatitis. Abdominal ultrasound showed diffuse hepatic steatosis. IV fluid was started. Abdominal pain has resolved. Repeat lipase 3500. Diet advanced. Will stop IV fluid. Patient reported bloating sensation. X-ray revealed mildly dilated jejunum likely adynamic ileus. Repeat x-ray with nonspecific bowel gas pattern 03/15/2024. 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 Continue on Protonix. Repeat EGD in 3 years Ongoing alcohol use disorder likely alcoholic pancreatitis. Continue CIWA protocol. Thiamine and folate. Librium p.r.n.. History of hypertension -currently at goal. Restart home meds as appropriate. Added amlodipine. Will continue candesartan amlodipine at discharge Fever -spiked a fever of 101.7 F the evening of 03/14 associated with flushing of the face. UA on admission unremarkable. Blood cultures taken. No other symptoms to point towards an etiology. Started on Zosyn. -continue Zosyn on 03/15. Leukocytosis resolved. Zosyn stopped Hypocalcemia -7.7 on 03/14. -7.7 on 03/15 status post 1 g calcium gluconate. Will give another 2 g calcium gluconate. Ionized calcium level is low. Likely due to acute pancreatitis Anemia, normocytic/macrocytic -noted on admission. -iron low, ferritin normal at 81. Folate 11. Vitamin B12 556 some of them are hemodialysis no Transaminitis -continue to trend. Likely due to alcohol. Liver workup labs pending. Liver ultrasound completed demonstrating hepatic steatosis Thrombocytopenia -hepatic steatosis. Could be due to acute illness/chronic malnutrition well. Gout: Uric acid level has been elevated in the past. Attempt colchicine. He is not on allopurinol at home. He will discuss with his PCP with regard to initiation of allopurinol patient basis. Repeat uric acid level 3.7 prednisone given which improved the pain. Will continue for 5 total days Left talus fracture as noted on x-ray studies. Walking boot ordered. To use while ambulating. Orthopedics was consulted. Follow-up with orthopedics as an outpatient basis. DVT prophylaxis: Lovenox 40 mg subQ q.day Code Status: Full code Dispo: Home self-care Time Spent with Patient Time attestation: Total time spent providing and/or coordinating discharge services: Exam Narrative: General: Well-developed, nontoxic-appearing male sitting up in bed in no acute distress HEENT: PERR
[2024-03-20 14:19] LABS: Actin Antibody (IgG) <20 U (<20)
[2024-03-28 09:14] LABS: Mitochondrial (M2) Ab (IgG) <20.0 U
[2024-04-03 16:38] LABS: ALT 83 U/L (9-46); Alpha-2-Macroglobulin 98 mg/dL (106-279); Apolipoprotein A1 165 mg/dL (94-176); Fibrosis Score 0.42; Fibrosis Stage F1-F2; GGT 336 U/L (3-70); Haptoglobin 204 mg/dL (43-212); Necroinflammat Act Grade A2; Total Bilirubin 2.2 mg/dL (0.2-1.2)
== END 2024-03-19 17:28 | disposition home or self-care (01) | DRG 439 ==
LOC: ANHED 10:48 → ANH3MEDSUR 12:07
PROVIDERS: General Practice; Internal Medicine Gastroenterology; Nurse Practitioner; Physician Assistant; Admitting Provider Internal Medicine; Emergency Provider Emergency Medicine; PCP Internal Medicine; Visit Provider Internal Medicine
PROC: 0DJ08ZZ Inspection of Upper Intestinal Tract, Via Natural or Artificial Opening Endoscopic (ICD-10-PCS; CPT 43235; principal; 2024-03-15 15:30)
DX: K85.20 Alcohol induced acute pancreatitis without necrosis or infection (principal); K56.7 Ileus, unspecified; K92.0 Hematemesis; K22.70 Barrett's esophagus without dysplasia; D69.6 Thrombocytopenia, unspecified; I10 Essential (primary) hypertension; I87.2 Venous insufficiency (chronic) (peripheral); K76.0 Fatty (change of) liver, not elsewhere classified; K21.9 Gastro-esophageal reflux disease without esophagitis; K44.9 Diaphragmatic hernia without obstruction or gangrene; E78.5 Hyperlipidemia, unspecified; E78.2 Mixed hyperlipidemia; E55.9 Vitamin D deficiency, unspecified; E53.8 Deficiency of other specified B group vitamins; E83.51 Hypocalcemia; S92.102A Unspecified fracture of left talus, initial encounter for closed fracture; D53.9 Nutritional anemia, unspecified; R73.03 Prediabetes; N40.0 Benign prostatic hyperplasia without lower urinary tract symptoms; M10.9 Gout, unspecified; M19.90 Unspecified osteoarthritis, unspecified site; M48.061 Spinal stenosis, lumbar region without neurogenic claudication; X58.XXXA Exposure to other specified factors, initial encounter; F41.9 Anxiety disorder, unspecified; F10.10 Alcohol abuse, uncomplicated; Z85.820 Personal history of malignant melanoma of skin; Z87.442 Personal history of urinary calculi; Z86.010 Personal history of colon polyps; Z87.11 Personal history of peptic ulcer disease; Z79.82 Long term (current) use of aspirin; Z87.891 Personal history of nicotine dependence
CPT/HCPCS: 36415; 73600; 73630; 74018; 74177; 76705; 80053; 80061; 80074; 80307; 81001; 81596; 82103; 82105; 82330; 82390; 82607; 82728; 82746; 83520; 83540; 83550; 83690; 83735; 84145; 84550; 85025; 85027; 85055; 86038; 86039; 86364; 86376; 87040; 88305; 93005; 93971; 96361; 96374; 96375; 99285; A9270; C9113; G0378; J0612; J0613; J1170; J1650; J2270; J2405; J2543; J2704; J2765; J3411; J7030; J7120; J7512; L2116; Q9967

== ENCOUNTER 2024-04-11 14:36 | Outpatient (CLI) | payer MEDICARE, SELFPAY ==
--- NOTE | ~2024-04-11 | US_ITS ---
EXAMINATION: US soft tissue UE RT DATE: 04/11/2024 15:00 INDICATION: Localized swelling, mass and lump at the right upper limb TECHNIQUE: Multiple grayscale and Doppler ultrasound images of the region of concern at the upper out er right upper arm were obtained. COMPARISON: None FINDINGS: There is a 2.4 x 2.2 x 1.2 cm region in the subcutaneous fat which demonstrates slightly greater echo genicity but with similar echotexture and internal septated architecture as the surrounding subcutane ous fat. The underlying musculature is unremarkable. No pathologically enlarged lymph nodes or other abnormal masses or fluid collections identified. IMPRESSION: 1. Nonspecific 2.4 x 2.2 x 1.2 cm lobular subcutaneous mass at the region of concern with appearance most consistent with and statistically most likely to represent a lipoma. Reviewed, dictated and finalized at location B. IMPRESSION: 1. Nonspecific 2.4 x 2.2 x 1.2 cm lobular subcutaneous mass at the region of co ncern with appearance most consistent with and statistically most likely to rep resent a lipoma.
== END 2024-04-11 14:37 ==
LOC: MICIMG 14:38
PROVIDERS: PCP Orthopaedic Surgery; Visit Provider Internal Medicine
DX: R22.31 Localized swelling, mass and lump, right upper limb (principal)
CPT/HCPCS: 76882

== ENCOUNTER 2024-05-01 11:31 | Outpatient (CLI) | payer MEDICARE, SELFPAY ==
--- NOTE | ~2024-05-01 | MR_ITS ---
MRI of the right shoulder Technique: Axial proton-density fat-sat images, coronal proton density fat-sat and T2 fat-sat images, and sagittal T1-weighted and T2 fat-sat images were acquired. Clinical History: Pain Findings: There is moderate to severe AC joint degenerative change, bony productive change of the dis saranya clavicle and small subacromial spur. Coracoclavicular, coracoacromial, and coracohumeral ligament s appear intact. There is severe supraspinatus and infraspinatus tendinosis. There is a superimposed probable focal fu ll-thickness tear measuring 7 x 4 mm at the distal supraspinatus region. Subscapularis tendon is inta ct, with moderate tendinosis. Tendon of long head of the biceps is not clearly visualized, it is pres umably torn and retracted. Truncation of the superior labrum is compatible superior labral tear, probably extending to the anter osuperior portion. Inferior glenohumeral ligament is intact. There is mild glenohumeral joint degenerative change and mi nimal effusion. No gross fluid distention of the subacromial/subdeltoid bursa. No muscle atrophy or e dylon. Impression: Severe rotator cuff tendinosis, especially of the supraspinatus and infraspinatus tendons, with super imposed focal full-thickness tear of the distal supraspinatus tendon measuring 7 x 4 mm. Probable complete tear of the proximal biceps long head tendon with presumed retraction. Superior labral tear extending to the anterosuperior portion. Moderate to advanced AC joint degenerative change. Mild glenohumeral joint degenerative change. Reviewed, dictated and finalized at location . Impression: Severe rotator cuff tendinosis, especially of the supraspinatus and infraspinat us tendons, with superimposed focal full-thickness tear of the distal supraspin atus tendon measuring 7 x 4 mm. Probable complete tear of the proximal biceps long head tendon with presumed re traction. Superior labral tear extending to the anterosuperior portion. Moderate to advanced AC joint degenerative change. Mild glenohumeral joint dege nerative change.
== END 2024-05-01 11:32 ==
LOC: GOSHIMG 11:32
PROVIDERS: PCP Internal Medicine; Visit Provider Physician Assistant Surgical
DX: S43.431A Superior glenoid labrum lesion of right shoulder, initial encounter (principal); M75.31 Calcific tendinitis of right shoulder; M19.011 Primary osteoarthritis, right shoulder; X58.XXXA Exposure to other specified factors, initial encounter
CPT/HCPCS: 73221

== ENCOUNTER 2024-12-19 12:32 | Outpatient (CLI) | payer MEDICARE, SELFPAY ==
--- NOTE | ~2024-12-19 | MR_ITS ---
EXAMINATION: MR lumbar spine wo con DATE: 12/19/2024 13:06 INDICATION: Lumbago. TECHNIQUE: Magnetic resonance imaging (MRI) of the lumbar spine was performed without intravenous con trast. Sequences included sagittal T2-weighted FSE, sagittal T2-weighted FS FSE, sagittal T1-weighted FSE, and axial T2-weighted FSE. COMPARISON: Lumbar spine MRI 09/19/2022 FINDINGS: There is 3 mm retrolisthesis of L5 on S1. There is mild chronic anterior wedging of T11-L1 vertebral bodies. There is mildly decreased disc height at L3-L4 and L4-L5 and moderately decreased d isc height at L5-S1. Epidural lipomatosis is noted. The distal spinal cord signal intensity is normal . The conus medullaris is at L1-L2. The following disc levels are specifically discussed: L1-L2: There is a central protrusion. There is mild bilateral facet joint osteoarthritis. There is no neural foraminal stenosis. There is mild central canal stenosis. L2-L3: The disc is bulging. There is mild bilateral facet joint osteoarthritis. There is mild right n eural foraminal stenosis. There is mild central canal stenosis. L3-L4: The disc is bulging and has an annular fissure. There is severe right and mild left facet join t osteoarthritis. There is moderate right and mild left neural foraminal stenosis. There is mild cent ral canal stenosis. L4-L5: The disc is bulging and has an annular fissure. There is severe right and moderate left facet joint osteoarthritis. There is moderate bilateral neural foraminal stenosis. There is mild central ca nal stenosis. L5-S1: The disc is bulging and has an annular fissure. There is severe bilateral facet joint osteoart hritis. There is mild bilateral neural foraminal stenosis. There is mild central canal stenosis. IMPRESSION: 1. Moderate lumbar spondylosis, stable from 09/19/2022. Reviewed, dictated and finalized at location A. LE REPAIRER
== END 2024-12-19 12:33 | disposition home or self-care (01) ==
LOC: GOSHIMG 12:33
PROVIDERS: PCP Internal Medicine; Visit Provider Nurse Practitioner Family
DX: M43.06 Spondylolysis, lumbar region (principal)
CPT/HCPCS: 72148

== ENCOUNTER 2025-04-22 09:24 | Outpatient (CLI) | payer MEDICARE, SELFPAY ==
--- NOTE | ~2025-04-22 | US_ITS ---
Limited Abdominal Sonogram: Real-time sonographic imaging of the right upper quadrant was performed. Clinical History: Gallbladder sludge Findings: The liver appears echogenic, with no evidence of mass lesion or bile duct dilatation. Main portal vein demonstrates normal direction of flow. The gallbladder is well distended, and appears no rmal with no evidence of gallstone or wall thickening. The common bile duct measures 5 mm. The visua lized pancreas, aorta, and IVC are unremarkable. Impression: Diffuse fatty infiltration of the liver. Reviewed, dictated and finalized at location M. Impression: Diffuse fatty infiltration of the liver.
== END 2025-04-22 09:25 | disposition home or self-care (01) ==
LOC: GOSHIMG 09:25
PROVIDERS: PCP Internal Medicine; Visit Provider Nurse Practitioner
DX: K76.0 Fatty (change of) liver, not elsewhere classified (principal); K82.9 Disease of gallbladder, unspecified
CPT/HCPCS: 76705

== ENCOUNTER 2025-05-15 09:37 | Outpatient (CLI) | payer MEDICARE, SELFPAY ==
--- OUTSIDE RECORDS SUMMARY | 2025-05-15 09:58 | XMS_ITS | Clinical Summary ---
Author Organization [facility] [address] Address [address] [place] [id number] Care Team Providers Care Certified Nurse Practitioner Name Role Phone Yunier Rodríguez MD Primary Care Provider [phone] Allergies Active Allergy Reactions Criticality Noted Date Comments Diphenhydramine Other (See comments) Low 02/23/2016 Irritability and increase in energy Medications aspirin 81 mg tabletIndicatio ns:primary prevention of coronary heart disease Take 1 tablet (81 mg total) by mouth daily before breakfast Active fish oil-dha-epa 1,200-144-216 mg capsuleIndicati ons:health Take 1 tablet by mouth daily before breakfast Active acidophilus-pec tin, citrus 100 million cell-10 mg capsuleIndicati ons:gut health Take 1 capsule by mouth once a week Active alpha lipoic acid 600 mg capsuleIndicati ons:health Take 1 capsule (600 mg total) by mouth daily before breakfast Active cholecalciferol (VITAMIN D-3) 2,000 unit tabletIndicatio ns:Vitamin D Deficiency Take 1 tablet (2,000 Units total) by mouth daily before breakfast Active pantoprazole DR (PROTONIX) 40 mg EC tabletIndicatio ns:Treatment of Non-Bleeding Gastric Disorder Take 1 tablet (40 mg total) by mouth daily before breakfast Active candesartan (ATACAND) 32 mg tabletIndicatio ns:hypertension Take 1 tablet (32 mg total) by mouth daily before breakfast Active polycarbophil (FIBERCON) 625 mg tabletIndicatio ns:constipation Take 1 tablet (625 mg total) by mouth daily before breakfast Active vitamin B complex capsuleIndicati ons:Vitamin Deficiency Prevention Take 1 capsule by mouth daily before breakfast Active ibuprofen 200 mg tab/cap Take 2 tablet/capsule (400 mg total) by mouth every 6 (six) hours as needed for pain Active acetaminophen (TYLENOL) 325 mg tablet Take 2 tablets (650 mg total) by mouth every 6 (six) hours as needed for pain Active docusate sodium (COLACE) 100 mg capsuleIndicati ons:constipatio n Take 1 capsule (100 mg total) by mouth 2 (two) times a day for 14 days 28 capsule 4 Active oxyCODONE (ROXICODONE) 5 mg immediate release tabletIndicatio ns:Pain TAKE ONE TO TWO TABLETS EVERY 6 TO 8 HOURS PRN PAIN 40 tablet 5 Active Active Problems Problem Noted Date Diagnosed Date Complete tear of right rotator cuff 08/15/2024 Scrotal swelling 08/13/2019 Chronic sinusitis 01/22/2019 Nasal obstruction 01/22/2019 Ear fullness, right 01/22/2019 Varicose veins of left lower extremity with pain 03/23/2018 Overview (03/23/2018): Added automatically from request for surgery [id number] Thrombophlebitis of superfic ial veins of left lower extremity 02/08/2018 Pain of foot 06/18/2015 Encounters Date Type Department Care Team Description 03/12/2025 9:45 AM CDT Office Visit [facility] Orthopaedic Surgery [id number] [place] [address] 2[address] [place] [address] Curly Pretty MD Tear of right rotator cuff, unspecified tear extent, unspecified whether traumatic (Primary Dx) from Last 3 Months Surgical History Surgery Date Site/Laterality Comments CATARACT EXTRACTION 10/17/2014 - 10/16/2015 HEMORROIDECTOMY 10/17/2015 - 10/16/2016 HIP SURGERY 09/16/2016 - 10/16/2016 left hip bursectomy ENDOVENOUS ABLATION SAPHENOU S VEIN W/ LASER 10/17/2011 - 10/16/2012 Left MELANOMA RESECTION 03/17/2014 - 04/15/2014 VARICOSE VEIN SURGERY 09/21/2018 Left Stab Phlebectomy CARPAL TUNNEL RELEASE 10/17/2010 - 10/16/2011 Bilateral 2007 SPERMATOCELECTOMY 10/17/2015 - 10/16/2016 TRIGGER FINGER RELEASE 10/17/2019 - 10/16/2020 MENISCUS SURGERY 12/15/2020 - 01/14/2021 FINGER SURGERY 10/17/2021 - 10/16/2022 Medical History Medical History Date Comments Thyroid disorder Melanoma (HCC) Gastric ulcer Neuropathy Hypertension History of kidney problems Acid reflux disease Ulcer (traumatic) of oral mucosa Pancreatitis Family History Medical History Relation Name Comments Colon cancer Brother Diabetes type II Brother Diabetes Father varicose veins Stroke Father COPD Mother Stroke Mother Relation Name Status Comments Brother Father Mother Social History Tobacco Use Types Packs/Day Years Used Date Smoking Tobacco: Former Cigarettes Q uit: 2006 Smokeless Tobacco: Never Tobacco Cessation:Counseling Given: Not Answered Alcohol Use Standard Drinks/Week Comments Yes 0 (1 standard drink = 0.6 oz pur e alcohol) AUDIT-C Answer Date Recorded Q1: How often do you have a drink containing alcohol? 4 or more times a week 10/15/2024 Q2: How many drinks containi ng alcohol do you have on a typical day when you are drinking? 3 or 4 Q3: How often do you have si x or more drinks on one occasion? Never 10/15/2024 Personal Safety Answer Date Recorded Have you ever been in or are you currently in a harmful physical or emotional relationship or is someone making you feel afraid or unsafe? Denies 10/15/2024 Sex and Gender Information Value Date Recorded Sex Assigned at Not on file Legal Sex Male 2:05 AM CHECK SCALER Gender Identity Male 02/23/2023 2:28 PM CDT Sexual Orientation Straight 02/23/2023 2: 28 PM CDT Obstetrics History Last Filed Vital Signs Vital Sign Reading Time Taken Comments Blood Pressure 134/89 10/15/2024 3:45 PM CHECK SCALER Pulse 96 10/15/2024 3:50 PM CHECK SCALER Temperature 36 C (96.8 F) 10/15/2024 2:54 PM CHECK SCALER Respiratory Rate 23 10/15/2024 3:50 PM CHECK SCALER Oxygen Saturation 94% 10/15/2024 3:50 PM CHECK SCALER Inhaled Oxygen Concentration - - Weight 107.9 kg (237 lb 12.8 oz) 2023 10:47 AM CHECK SCALER Height 182.9 cm (6') 10/15/2024 10:47 AM CHECK SCALER Body Mass Index 32.25 10/15/2024 10:47 AM CHECK SCALER Plan of Treatment Health Maintenance Due Date Last Done Comments Colon Cancer Screening-Colonoscopy 1950 Depression Screening 1950 Hepatitis C Screening 1950 Hepatitis B Screening 1969 Abdominal Aortic Aneurysm (A AA) Screen 2016 Well Visit 65+ 2016 Influenza Vaccine (#1) 2025 , 08/21/2019, 08/17/2018, Additional history exists Fall Risk Assessment 10/15/2025 10/15/2024 DTaP/Tdap/Td Vaccine (2 - Td or Tdap) 12/30/2027 12/29/2017 Pneumococcal vaccine 65+ Completed 019, 08/08/2018, 08/07/2018 Zoster Vaccine Completed 10/01/2020, 06/17, 07/19/2013 Medical Devices Implanted Type Area [employer] Device Identifier Shelf Expiration Date Model / Serial / Lot [employer] Corkscrew Suturetape 5.5mm 14.7mm Bioabsorbable Full Thread 1.3mm [id number] - [id number] Implanted:Qty: 1 on 10/15/2024 by Curly Pretty MD at [facility] Right: Shoulder [employer] 05/16/2026 AR-[id number] / / [id number] [employer] Corkscrew Suturetape 5.5mm 14.7mm Bioabsorbable Full Thread 1.3mm [id number] - [id number] Implanted:Qty: 1 on 10/15/2024 by Curly Pretty MD at [facility] Right: Shoulder [employer] 07/16/2026 [id number] / / [id number] [employer] Ar-2324 Bcm Swivelock 4.75mm 24.5mm Self Punch Vent Shoulder [place] Suture - [id number] Implanted:Qty: 1 on 10/15/2024 by Curly Pretty MD at [facility] Right: Shoulder [employer] 05/16/2028 [id number] / / [id number] [employer] Ar-2324 Bcm Swivelock 4.75mm 24.5mm Self Punch Vent Shoulder [place] Suture - [id number] Implanted:Qty: 1 on 10/15/2024 by Curly Pretty MD at [facility] Right: Shoulder [employer] 05/16/2028 [id number] / / [id number] Insurance MEDICARE [facility] Address: [address] [address] COMMERCIAL GENERIC MEDICARE [facility] [place] [address] MEDICARE [facility] FIN[facility]CIAL Care Teams Certified Nurse Practitioner Relationship Specialty Start Date End Date Yunier Rodríguez MD [address] [facility] [address] [place] [address] PCP - General 08/17/11
--- OUTSIDE RECORDS SUMMARY | 2025-05-15 09:58 | XMS_ITS | Clinical Summary ---
Author Organization [facility] Address [address] [place] [id number] Care Team Providers Care Professional Employer Consultant Name Role Phone Yunier Rodríguez MD Primary Care Provider [phone] Social History Tobacco Use Types Packs/Day Years Used Date Smoking Tobacco: Never Assessed Sex and Gender Information Value Date Recorded Sex Assigned at Not on file Legal Sex Male 5:28 PM CDT Gender Identity Not on file Sexual Orientation Not on file Plan of Treatment Health Maintenance Due Date Last Done Comments Colorectal Cancer Screening Colonoscopy (10 Years) 1950 Hepatitis C 1969 Annual Medicare Wellness Visit 2016 COVID-19 Vaccine ( season) 2024 07/24/2022, 08/12/2021, 12/16/2020, Additional history exists DTaP, Tdap and Td Vaccines (2 - Td or Tdap) 12/30/2027 12/29/2017 Zoster Vaccines Completed 10/01/2020, 06/17, 07/19/2013 Pneumococcal Vaccine: 50+ Years Completed 06/13/2023, 08/21/2019, 08/07/2018 RSV Immunization or 60+ Years Completed 09/24/2023 Meningococcal B Vaccine Aged Out No l onger eligible based on patient's age to complete this topic Meningococcal Vaccine Aged Out No nima gianni eligible based on patient's age to complete this topic RSV Immunizations Under 20 Months Aged Out No longer eligible based on patient's age to complete this topic Insurance MEDICARE [facility] [employer] Care Teams Professional Employer Consultant Relationship Specialty Start Date End Date Yunier Rodríguez MD [address] [place] [address] PCP - General INTERNAL MEDICINE 07/30/22
--- OUTSIDE RECORDS SUMMARY | 2025-05-15 09:58 | XMS_ITS | Clinical Summary ---
Author Organization [facility] Address [address] [facility] [place] [address] Care Team Providers Care Pharmacy Tech Name Role Phone Yunier Rodríguez MD Primary Care Provider [phone] Source Comments [facility],non-owned Affiliates and Associated Physician Practices is amultiple site organization consisting of ambulatory clinics and hospital sitesin [place], [place], [place] and [place]. This disclosure is being madepursuant to the Care Everywhere program and may not contain all information available regarding this patient. Last updated 18.[facility] Allergies Active Allergy Reactions Criticality Noted Date Comments Diphenhydramine Other Low 02/23/2016 Irritability and increase in energy Medications * Be aware that medications may not be up to date on this document. Alwaysverify current medications with the patient. B Complex-Biotin- FA (B COMPLETE) TABS Take 1 tablet by mouth once daily Active candesartan (ATACAND) 16 MG tablet Take 0.5 (one-half) tablet by mouth once daily Patient taking 32mg Active Vitamin D3, cholecalciferol , 2000 UNITS tablet Take 1 (one) tablet by mouth once daily Active diclofenac sodium (VOLTAREN) 1 % gel 03/27/2016 Active Multiple Vitamins-Minera ls (MULTIVITAMIN & MINERAL PO) Active Vici-3 Fatty Acids (FISH OIL PO) Active pantoprazole EC (PROTONIX) 40 MG tablet Take 1 (one) tablet by mouth once daily 05/24/2016 Active alpha lipoic acid 200 MG capsuleIndicati ons:Thyroid nodule Take 1 (one) capsule by mouth once daily Active naproxen (NAPROSYN) 500 MG tablet TAKE 1 TABLET BY MOUTH 3 TIMES A DAY NEEDED FOR PAIN 12/23/2020 Active Active Problems Problem Noted Date Diagnosed Date Pancreatitis 03/12/2024 Overview (08/10/2024): developed pain in early AM. ER visit confirmed pancreatitis and confined to hospital for 10 days fasting, limited diet and IV saline. Resolved with dietary limitations. 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 (FLUAD QUADRIVALENT; 65Y+) (AIIV4) 07/01/2023,07/31/2022,07/14/2021,2019 INFLUENZA VACCINE, HIGH-DOSE , QUADR. (FLUZONE HIGH-DOSE QUADRIVALENT; 65Y+), 0.7 ML (HD-IIV4) 08/21/2019,08/07/2018 INFLUENZA VACCINE, HIGH-DOSE , TRIV. (FLUZONE HIGH-DOSE TRIVALENT; 65Y+) (HD-IIV3) 08/21/2019,08/06/2018,07/24/2017 INFLUENZA VACCINE, QUADR. (F LUZONE; FLULAVAL; FLUARIX; AFLURIA QUADRIVALENT; 6MO+), 0.5 ML (IIV4) 08/12/2016 INFLUENZA VACCINE, TRIV. (FL UZONE; FLULAVAL; FLUARIX; AFLURIA TRIVALENT; 6MO+), 0.5 ML (IIV3) 08/08/2015 PNEUMOCOCCAL PCV20 CONJ VAC IM 06/13/2023 PNEUMOCOCCAL PPSV23 08/21/2019 Pneumococcal Pcv13 Conj 08/08/2018 RSV AREXVY 60YR+ 0.5ML 09/24/2023 TDAP, HISTORIC VACCINE 12/29/2017 ZOSTER VACCINE, LIVE 07/19/2013 Zoster Hzv Vacc Recombinant Inj Im 10/01/2020, Family History Medical History Relation Name Comments Diabetes - Type 2 Brother Diabetes - Type 2 Father Cancer - Skin, Non Melanoma Maternal Grandmother Cancer - Skin, Non Melanoma Mother Thyroid Disease Neg Hx Relation Name Status Comments Brother Father Maternal Grandmother Mother Social History Tobacco Use Types Packs/Day Years Used Date Smoking Tobacco: Former Cigarettes 0.2 8 Smokeless Tobacco: Never Tobacco Cessation:Counseling Given: Not Answered Alcohol Use Standard Drinks/Week Comments Yes 21 (1 standard drink = 0.6 oz pu re alcohol) vodka AUDIT-C Answer Date Recorded Q1: How often do you have a drink containing alcohol? 4 or more times a week 07/30/2020 Q2: How many drinks containi ng alcohol do you have on a typical day when you are drinking? 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 Gender Identity Male 02/18/2023 12:48 PM CDT Sexual Orientation Straight 02/18/2023 12 :48 PM CDT Last Filed Vital Signs Vital Sign Reading Time Taken Comments Blood Pressure 155/84 08/10/2024 11:28 AM CDT Pulse 80 08/10/2024 11:28 AM CDT Temperature 36.8 C (98.2 F) 08/10/2024 11:28 AM CDT Respiratory Rate 20 08/10/2024 11:2 8 AM CDT Oxygen Saturation 95% 08/10/2024 11: 28 AM CDT Inhaled Oxygen Concentration - - Weight 109.5 kg (241 lb 6.4 oz) 024 11:28 AM CDT Height 182.9 cm (6') 08/10/2024 11:28 AM CDT Body Mass Index 32.74 08/10/2024 11:28 AM CDT Plan of Treatment Health Maintenance Due Date Last Done Comments COLOGUARD (AGES 45-75) - COLON CA SCREENING 1950 COLON MONITORING 1950 COLONOSCOPY - COLON CA SCREENING 1950 CT COLONOGRAPHY - COLON CA SCREENING 1950 Colorectal Cancer Screening 1950 FIT - COLON CA SCREENING 1950 FLEX SIG - COLON CA SCREENING 1950 LIPID TESTING 1950 MEDICARE AWV 12 MONTHS 1950 HEPATITIS C SCREENING 08/23/1969 AAA SCREENING 2016 COVID-19 VACCINE ( season) 2024 07/29/2023, 07/24/2022, 08/12/2021, Additional history exists DEPRESSION SCREENING 10/17/2024 INFLUENZA VACCINE (#1) 2025 3, 07/31/2022, 07/14/2021, Additional history exists DTAP/TDAP/TD VACCINES (2 - Td or Tdap) 12/30/2027 12/29/2017 ZOSTER VACCINE Completed 10/01/2020, 06/17, 07/19/2013 PNEUMOCOCCAL VACCINE 50+ Completed 023, 08/21/2019, 08/08/2018 Respiratory Syncytial Virus (RSV) Vaccine Pt: or over 60 yrs Completed 09/24/2023 HEPATITIS B VACCINE Aged Out No longe r eligible based on patient's age to complete this topic HIB VACCINE Aged Out No longer eligi ble based on patient's age to complete this topic HPV VACCINE Aged Out No longer eligi ble based on patient's age to complete this topic MENINGOCOCCAL (Group B) VACCINE SHARED DECISION-MAKING Aged Out No longer eligible based on patient's age to complete this topic MENINGOCOCCAL GROUPS A/C/Y/W VACCINE Aged Out No longer eligible based on patient's age to complete this topic Insurance MEDICARE COMMERCIAL GENERIC Care Teams Pharmacy Tech Relationship Specialty Start Date End Date Yunier Rodríguez MD [address] [place] [id number] PCP - General 05/10/18
--- OUTSIDE RECORDS SUMMARY | 2025-05-15 09:58 | XMS_ITS | Encounter Summary ---
Author Organization [facility] Address [address] [place] [address] Care Team Providers Care Channel Specialist Name Role Phone Yunier Rodríguez MD Primary Care Provider [phone] Encounter Details Date Type Department Care Team (Late st Contact Info) Description 04/07/2020 Telephone [facility] [address] [place] [address] Virgen Simon, FELICIA Social History Tobacco Use Types Packs/Day Years Used Date Smoking Tobacco: Former Smokeless Tobacco: Never Alcohol Use Standard Drinks/Week Comments Yes 0 (1 standard drink = 0.6 oz pur e alcohol) Sex and Gender Information Value Date Recorded Sex Assigned at Not on file 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
--- OUTSIDE RECORDS SUMMARY | 2025-05-15 09:58 | XMS_ITS | Encounter Summary ---
Author Organization [facility] Address [address] [place] [address] Care Team Providers Care Infant Nanny Name Role Phone Yunier Rodríguez MD Primary Care Provider [phone] Encounter Details Date Type Department Care Team (Late st Contact Info) Description 06/29/2023 Lab Requisition [facility] - DermPath Lab [address] [place] [address] Chris Gamboa MD [address] [place] [address] Social History Tobacco Use Types Packs/Day Years Used Date Smoking Tobacco: Former Cigarettes 0.2 8 Smokeless Tobacco: Never Alcohol Use Standard Drinks/Week Comments Yes 21 [...] PM CDT 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 Gender Identity Male 02/18/2023 12:48 PM CDT Sexual Orientation Straight 02/18/2023 12 :48 PM CDT documented as of this encounter Plan of Treatment Not on file documented as of this encounter Procedures Procedure Name Priority Date/Time Associated Diagnosis Comments DERMATOPATHOLOGY Routine 06/28/2023 12:0 0 AM CDT documented in this encounter Results * DERMATOPATHOLOGY (06/28/2023 12:00 AM CDT) Case Report Dermatopathology Report Case: [id number] Authorizing Provider: Chris Gamboa MD Collected: 06/28/2023 12:00 AM Ordering Location: [facility] DermPath Lab Received: 06/30/2023 06:52 AM Pathologist: Nikky Lanier MD Specimen: Skin, left jaw 3:29 PM CDT DERMATOPATHOLOGY LABORATORY Final Diagnosis Specimen A. 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 The specimen consists of a shave biopsy measuring 7x3x1 mm. Jar 0. 3:29 PM CDT DERMATOPATHOLOGY LABORATORY Microscopic Description Specimen A. SKIN, left jaw: There is alternating orthokeratosis and parakeratosis. Along the undersurface of the epidermis, there are buds of atypical keratinocytes in a disorderly arrangement. There is prominent pigmentation in some of the keratinocytes. The number of melanocytes, highlighted by MART-1/Melan-A immunohistochemical staining, is only mildly increased. 3:29 PM CDT DERMATOPATHOLOGY LABORATORY Disclaimer An external and internal positive and negative controls are appropriate for the histochemical, immunohistochemical and immunofluorescence stain(s) in this case (if any), except where stated explicitly. The performance characteristics of the stain(s) cited in this report were developed and its performance characteristic determined by the Dermatopathology Laboratory at [facility], directed by Dr. Jose J Larose. These tests need not be, and therefore are not, approved by the [place] Food and Drug Administration. The tests are used for clinical purposes. Billing Codes Specimen Charges Stain Charges 56951 1 20137 1 3 3:29 PM CDT DERMATOPATHOLOGY LABORATORY Embedded Images 3 3:29 PM CDT DERMATOPATHOLOGY LABORATORY Pathology/Cytolog y TISSUE SPECIMEN FROM SKIN / Unknown 06/28/2023 06/30/2023 6:52 AM CDT us Chris Gamboa MD LAB - PATHOLOGY/CYTOLOGY ORDER LEI Final Result DERMATOPATHOLOGY LABORATORY [facility] - Department of Dermatology [facility] Medicine [address] [place] [address], [address] [phone] documented in this encounter Visit Diagnoses Not on filedocumented in this encounter Care Teams Infant Nanny Relationship Specialty Start Date End Date Yunier Rodríguez MD [address] [place] [phone] PCP - General 05/10/18 documented as of this encounter
--- OUTSIDE RECORDS SUMMARY | 2025-05-15 09:58 | XMS_ITS | Clinical Summary ---
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 Gender Identity Not on file Sexual Orientation Not on file Plan of Treatment Health Maintenance Due Date Last Done Comments DTAP/TDAP/TD VACCINES (1 - Tdap) 1970 COLORECTAL SCREENING 1996 Colorectal Cancer Screening 1996 FIT-DNA Q 3 years 1996 FIT/FOBT Q 1 year 1996 Flex Sig/CT Colonography Q 5 years 1996 PNEUMOCOCCAL VACCINE 50+ YEARS (1 of 1 - PCV) 08/28/20 ZOSTER VACCINE (1 of 2) 2001 INFLUENZA VACCINE (#1) 2025 RSV VACCINE (60+ or ) (1 - 1-dose 75+ series) 2026 Insurance [facility] [id number] Care Teams Truck Repair Service Estimator Relationship Specialty Start Date End Date Yunier Rodríguez MD PCP - General Internal Medicine 12/16/15
--- OUTSIDE RECORDS SUMMARY | 2025-05-15 09:58 | XMS_ITS | Referral Summary ---
Author Organization [facility] [address] Address [address] [place] [address] Care Team Providers Care Tack Maker Name Role Phone Yunier Rodríguez MD Primary Care Provider Encounters Date Type Department Care Team Description 03/12/2025 9:45 AM CDT Office Visit [facility] Orthopaedic Surgery [address] [place] [address] 2nd [address] [place] [address] Curly Pretty MD Tear of right rotator cuff, unspecified tear extent, unspecified whether traumatic (Primary Dx) from Last 3 Months Allergies Active Allergy Reactions Criticality Noted Date [...] (03/23/2018): Added automatically from request for surgery [id number] Thrombophlebitis of superfic ial veins of left lower extremity 02/08/2018 Pain of foot 06/18/2015 Social History Tobacco Use Types Packs/Day Years [...] on file 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 Gender Identity Male 02/23/2023 2:28 PM CDT Sexual Orientation Straight 02/23/2023 2: 28 PM CDT Last Filed Vital Signs Vital Sign Reading Time Taken Comments Blood Pressure 134/89 10/15/2024 3:45 PM COSMETIC CHEMIST Pulse 96 10/15/2024 3:50 PM COSMETIC CHEMIST Temperature 36 C (96.8 F) 10/15/2024 2:54 PM COSMETIC CHEMIST Respiratory Rate 23 10/15/2024 3:50 PM COSMETIC CHEMIST Oxygen Saturation 94% 10/15/2024 3: 50 PM COSMETIC CHEMIST Inhaled Oxygen Concentration - - Weight 107.9 kg (237 lb 12.8 oz) 2023 10:47 AM COSMETIC CHEMIST Height 182.9 cm (6') 10/15/2024 10:47 AM COSMETIC CHEMIST Body Mass Index 32.25 10/15/2024 10:47 AM COSMETIC CHEMIST Plan of Treatment Not on file Medical Devices Implanted Type Area Recovery Analyst Device Identifier Shelf Expiration Date Model / Serial / Lot [employer] Corkscrew Suturetape 5.5mm 14.7mm Bioabsorbable Full Thread 1.3mm Ar-[id number] - [id number] Implanted:Qty: 1 on 10/15/2024 by Curly Pretty MD at [facility] [place] Right: Shoulder [employer] 05/16/2026 AR-[id number] / / [id number] [employer] Corkscrew Suturetape 5.5mm 14.7mm Bioabsorbable Full Thread 1.3mm Ar-[id number] - [id number] Implanted:Qty: 1 on 10/15/2024 by Curly Pretty MD at [facility] Right: Shoulder [employer] 07/16/2026 AR-[id number] / / [id number] [employer] Ar-2324 Bcm Swivelock 4.75mm 24.5mm Self Punch Vent Shoulder [place] Suture - [id number] Implanted:Qty: 1 on 10/15/2024 by Curly Pretty MD at [facility] Right: Shoulder [employer] 05/16/2028 AR-[id number] / / [id number] [employer] Ar-2324 Bcm Swivelock 4.75mm 24.5mm Self Punch Vent Shoulder [place] Suture - [id number] Implanted:Qty: 1 on 10/15/2024 by Curly Pretty MD at [facility] [place] Right: Shoulder [employer] 05/16/2028 [id number] / / [id number] Insurance MEDICARE COMMERCIAL GENERIC MEDICARE [facility] [place] [address] MEDICARE [facility] Care Teams Tack Maker Relationship Specialty Start Date End Date Yunier Rodríguez MD [address] [facility] [address] [place] [id number] PCP - General 08/17/11
--- NOTE | 2025-05-15 10:01 | ECHO_ITS ---
Patient Info Name: Javi Bruce Age: 74 years : 1950 Gender: Male Ht: 71 in Wt: 232 lbs BSA: 2.33 m2 HR: 68 bpm BP: 136 / 93 mmHg Technical Quality: Good Exam Date: 05/15/2025 10:09 AM Patient Status: O Admit Date: 05/15/2025 Exam Type: CA echo doppler color flow Complete two-dimensional, color flow and Doppler transthoracic echocardiogram is performed. Criminal Attorney: Alee Rosales Attending Provider: Yunier Rodríguez MD Summary 1. Complete two-dimensional, color flow and Doppler transthoracic echocardiogram is performed. 2. Left ventricular chamber dimension is normal. 3. Left ventricular systolic function is normal, estimated at 55-60. 4. The left ventricular diastolic function is grade I diastolic dysfunction. 5. E/e' 6 is not elevated. 6. There is mild aortic valve sclerosis. 7. There is mild aortic valve regurgitation. 8. The mitral valve has a mildly calcified annulus. 9. There is mild mitral valve regurgitation. 10. There is trace tricuspid valve regurgitation. 11. There is trace pulmonic regurgitation. Left Ventricle E/e' 6 is not elevated. Left ventricular chamber dimension is normal. Left ventricular systolic function is normal, estimated at 55-60. The left ventricular diastolic function is grade I diastolic dysfunction. Right Ventricle Right ventricular chamber dimension is normal. Right ventricular systolic function is normal. Left Atria Left atrial chamber dimension is normal. Right Atria Right atrial chamber dimension is normal. Aortic Valve The aortic valve is trileaflet. There is mild aortic valve sclerosis. There is no aortic valve stenosis. There is mild aortic valve regurgitation. Pulmonic Valve There is trace pulmonic regurgitation. Mitral Valve The mitral valve has a mildly calcified annulus. There is no mitral valve stenosis. There is mild mitral valve regurgitation. Tricuspid Valve There is trace tricuspid valve regurgitation. RVSP is not measured due to an inadequate TR jet. Pericardium/Pleural There is no pericardial effusion. Inferior Vena Cava Normal inferior vena cava with >50% collapse upon inspiration consistent with normal right atrial pressure, 5 mmHg. Aorta The aortic root size at the sinus of Valsalva is normal. Left Ventricular Outflow Tract Name Value Normal LVOT 2D LVOT Diameter 2.0 cm LVOT Doppler LVOT Peak Velocity 101 cm/s LVOT Peak Gradient 4 mmHg LVOT Mean Gradient 2 mmHg LVOT VTI 22 cm LVOT Stroke Volume 70 ml LVOT CO 4.7 l/min LVOT CI 2.0 l/min/m2 Pulmonic Valve Name Value Normal RVOT Doppler RVOT Peak Velocity 55 cm/s RVOT Peak Gradient 1 mmHg PV Doppler PV Peak Velocity 125 cm/s PV Peak Gradient 6 mmHg Mitral Valve Name Value Normal MV Diastolic Function MV E Peak Velocity 51 cm/s MV A Peak Velocity 63 cm/s MV E/A 0.8 MV Decel Time (PW) 315 ms MV Annular TDI MV E/e' (Septal) 8.9 MV E/e' (Lateral) 4.9 MV E/e' (Average) 6.9 Tricuspid Valve Name Value Normal Estimated PAP/RSVP RA Pressure 5 mmHg <=5 Aortic Valve Name Value Normal AV Doppler AV Peak Velocity 125 cm/s AV Peak Gradient 6 mmHg AV Area (Cont Eq Florencio) 2.6 cm2 AV DI (Florencio) 0.81 AV Regurgitation 2D LVOT Area 3.2 cm2 Ventricles Name Value Normal LV Dimensions 2D/MM IVS Diastolic Thickness (2D) 1.1 cm 0.6-1.0 LVID Diastole (2D) 5.1 cm 4.2-5.8 LVIW Diastolic Thickness (2D) 1.1 cm 0.6-1.0 LVID Systole (2D) 3.6 cm 2.5-4.0 LVOT Diameter 2.0 cm LV Mass (2D Cubed) 219.97 g 88.00-224.00 LV Mass Index (2D Cubed) 95 g/m2 49-115 Relative Wall Thickness (2D) 0.44 <=0.42 LV Fractional Shortening/Ejection Fraction 2D/MM LV Fractional Shortening (2D) 29 % 25-43 LV EF (2D Teichholz) 56 % LV Diastolic Volume (4C MOD) 136 ml LV EF (4C MOD) 54 % LV Diastolic Volume (2C MOD) 134 ml LV EF (2C MOD) 53 % LV Diastolic Volume (BP MOD) 136 ml 62-150 LV Diastolic Volume Index (BP MOD) 58 ml/m2 34-74 LV Systolic Volume (BP MOD) 64 ml 21-61 LV Systolic Volume Index (BP MOD) 27 ml/m2 11-31 LV EF (BP MOD) 53 % 52-72 LV Diastolic Length (4C) 9.5 cm LV Systolic Length (4C) 7.8 cm LV Stroke Volume (4C MOD) 74 ml Atria Name Value Normal LA Dimensions LA Volume (4C A-L) 39 ml LA Volume (BP A-L) 47 ml RA Dimensions RA Systolic Major [place] Length (4C) 5.0 cm 2.1-2.7 RA Area (4C) 10.1 cm2 <=18.0 Report Signatures
== END 2025-05-15 09:38 | disposition home or self-care (01) ==
PROVIDERS: PCP Internal Medicine; Visit Provider Internal Medicine
DX: I10 Essential (primary) hypertension (principal); I45.10 Unspecified right bundle-branch block; R94.31 Abnormal electrocardiogram [ECG] [EKG]; I08.3 Combined rheumatic disorders of mitral, aortic and tricuspid valves
CPT/HCPCS: 93306

== ENCOUNTER 2025-06-30 16:05 | Emergency (ER) | payer MEDICARE, SELFPAY ==
--- NOTE | ~2025-06-30 | XR_ITS ---
EXAMINATION: XR abdomen/kub 1V, 06/30/2025 16:33 CDT HISTORY: R flank pain and bladder pain, hx of kidney stones COMPARISON: No comparisons available. Technique: 3 view. Findings: Moderate fecal content, no dilated bowel loops. There are left-sided renal calculi the largest mid pole 3 mm No acute osseous abnormality. Impression: 1. No acute abnormality. Reviewed, dictated and finalized at location A. Impression: 1. No acute abnormality.
[2025-06-30 16:14] VITALS: BP 154/80; PULSE 80; RESP 16; TEMP 36.2; O2SAT 99
--- NOTE | 2025-06-30 16:20 | ED.FEMALEGU ---
HPI - Female Genitourinary General Chief complaint: Urogenital-Male Stated complaint: UTI Time Seen by Provider: 06/30/25 16:20 Source: patient Mode of arrival: ambulatory Limitations: no limitations History of Present Illness HPI Narrative: 74 yo M presents with c/o R flank pain that started last night. hx of multiple kidney stones. has always been able to pass stones on his own. Does not take flomax as it makes him dizzy. Today having bladder spasm. Wants to rule out UTI. Afebrile. Denies N/V. no pain at this time. Has not needed to take any pain medication. has appt with warehouse inventory clerk end of jun. All systems reviewed and negative except as noted above. Related Data Home Medications ?Medication ?Instructions ?Recorded ?Confirmed ?Last Taken ?Type Lactobacillus 1 cap PO DAILY 09/06/19 06/05/25 03/12/24 History acidophilus-Bifidobac.animalis 10 billion cell capsule (Digestive Probiotic) aspirin 81 mg tablet,delayed 81 mg PO DAILY 12/08/20 06/05/25 03/12/24 History release (Adult Low Dose Aspirin) omega 6-zez-hbe-fish oil 1,000 mg 2 cap PO DAILY 01/01/22 06/05/25 03/12/24 History (120 mg-180 mg) capsule (Fish Oil) calcium polycarbophil 625 mg 1,250 mg PO DAILY 12/22/22 06/05/25 03/12/24 History tablet (FiberCon) alpha lipoic acid 600 mg capsule 600 mg PO DAILY 08/17/23 06/05/25 03/12/24 History vitamin B complex 1 cap PO DAILY 08/17/23 06/05/25 03/12/24 History cholecalciferol (vitamin D3) 50 1,000 unit PO DAILY 12/22/23 06/05/25 03/12/24 History mcg (2,000 unit) capsule cyclosporine 0.05 % eye drops in a 1 drp EACH EYE Q12H 12/22/23 06/05/25 03/12/24 History dropperette (Restasis) sour alas extract 1,000 mg mg PO 02/07/25 06/05/25 Unknown History capsule (Tart Alas Extract) tamsulosin 0.4 mg capsule mg PO 06/30/25 Unknown History Allergies Allergy/AdvReac Type Severity Reaction Status Date / Time Pjznktw-SFG-YcQ Reductase Allergy Intermediate LEG/FEET Verified 06/30/25 16:09 Inhibitor (Eohneku-Exc-Jcp PAIN Reductase Inhibitor) Antihistamines - Alkylamine AdvReac Mild hyperactivi Verified 06/30/25 16:09 [facility] Past Medical History Medical History Alcoholic pancreatitis Anxiety Patrick esophagus Benign prostatic hyperplasia Bladder stones Bloating BRBPR (bright red blood per rectum) Chronic back pain Colon polyps Daily consumption of alcohol Degenerative joint disease Duodenal ulcer Elevated PSA Epigastric pain Gastroesophageal reflux disease Gout Hearing loss Hemorrhoids History of kidney stones Hyperlipidemia Hypertension Internal hemorrhoids Kidney stones Left foot pain Mass of right upper extremity Melanoma Mixed hyperlipidemia Neural foraminal stenosis of lumbar spine Prediabetes RBBB (right bundle branch block) Right shoulder pain Shoulder mass Thoracic ascending aortic aneurysm Varicosities of leg Status post endovenous laser therapy Venous insufficiency Vitamin B12 deficiency Vitamin D deficiency Surgical History Surgical History History of bilateral carpal tunnel release History of bursectomy Left hip greater trochanteric bursa. History of cataract extraction with lens replacement History of colonoscopy with polypectomy History of hemorrhoidectomy (06/2019) History of melanoma excision History of repair of left rotator cuff History of right knee surgery (12/24/20) Partial medial meniscectomy with open debridement of quadriceps tendon. History of tonsillectomy Status post trigger finger release Family History Family History Father Cerebrovascular accident Family history of diabetes mellitus in first degree relative Diabetes mellitus Mother Family history of chronic obstructive pulmonary disease Cerebrovascular accident Sibling Family history of diabetes mellitus in first degree relative Carcinoma of colon Diabetes mellitus Other Family history of arthritis Family history of diabetes mellitus Family history of gout Family history of kidney stones Family history of malignant neoplasm Hypertension Social History Social History Social History: Surrogate medical decision maker: Brooke (spouse) or Vinny (son) Janis. Code status: Full code. Smoking packs per day: 0.25 Smoking cigarettes per day: 5.0 Years smoked: 20 Smoking pack-years: 5.00 Smoking status: Former smoker Tobacco type: cigarettes Second hand tobacco smoke exposure: No Smoking end date: 04/16/08 Alcohol intake: current Drinks per week: 20 Alcohol use details: mixed drinks Substance use: never Substance use type: does not use Do You Feel Safe in your Home?: Yes Lack of Transportation: No Lack of Food: Never True Current Housing: I Have Housing Concerned About Future Housing: No Difficulty Paying Gas/Electric Bills: No Difficulty Paying for Meds: No Currently Unemployed: No Education: Bachelor's Degree Difficulty w/ Childcare or Family Care: No Living arrangements: with family Additional living arrangements comments: Lives with spouse in [place]. Occupation/Education: retired Additional occupation/education comments: Insurance Gender identity (if verbalized by the patient): Male Spiritual care concerns: No Comments At time of signature, agree with nursing past medical, surgical, social and family history. There is no relevant family history pertinent to the presenting complaint. Exam Narrative: GENERAL: This is a well-nourished, well-developed patient, in no apparent distress. HEAD: normocephalic, atraumatic. EYES: PERRL. Sclera clear/white. Vision is grossly intact. EARS: External ears normal NOSE: External nose normal NECK: Neck supple, non-tender without lymphadenopathy, masses or thyromegaly. CARDIOVASCULAR: Regular rate and rhythm without murmurs, gallops, or rubs. RESPIRATORY: Clear to auscultation. Breath sounds equal bilaterally. No wheezes, rales, or rhonchi. GASTROINTESTINAL: Abdomen soft, non-tender, nondistended. Bowel sounds are active. No hepato-splenomegaly, or palpable masses. No guarding. SKIN: warm, Dry, intact with no suspicious lesions or rash, good texture and turgor. NEURO: awake, alert, and oriented to person, place and time. There were no obvious focal neurologic abnormalities. EXTREMITIES: No joint tenderness, effusion, or edema noted. No calf tenderness. Negative Homans sign bilaterally. BACK: Nontender without deformity. No CVA tenderness. Course Course Level of Care: Express Care Visit Vital Signs Vital signs: Vital Signs Temperature 36.2 C L 06/30/25 16:14 Pulse Rate 80 06/30/25 16:14 Respiratory Rate 16 06/30/25 16:14 Blood Pressure 154/80 H 06/30/25 16:14 Pulse Oximetry 99 06/30/25 16:14 Oxygen Delivery Room Air 06/30/25 16:14 Temperature 36.2 C L 06/30/25 16:14 Pulse Rate 80 06/30/25 16:14 Respiratory Rate 16 06/30/25 16:14 Blood Pressure 154/80 H 06/30/25 16:14 Pulse Oximetry 99 06/30/25 16:14 Oxygen Delivery Room Air 06/30/25 16:14 reviewed MDM - Female Genitourinary MDM Narrative Medical decision making narrative: UA 2+blood. urine culture ordered. KUB kidney stone to L side. Pt denies L flank pain. Stool to R which could be causing pt's back pain. Recommend follow up with PCP. Will go to to the ER for any worsening of symptoms. At discharge patient mentioned that he has oxycodone to take as needed for kidney stones. Patient states he does not like the way that this medication feels. Is asking for a different medication if he were to have pain from kidney stone. Differential Diagnosis Differential diagnosis: Likely urinary tract infection and other ( Kidney stone, bladder stone) Lab Data Labs: Lab Results 06/30/25 Range/Units 16:19 POC Urine Color Yellow POC Urine Clarity Clear POC Urine pH 5.5 POC Ur Specif [place] 1.020 POC Urine Protein Negative (Negative) POC Ur Glucose (UA) Negative (Negative) POC Urine Ketones Negative (Negative) POC Urine Blood 2+ (Negative) POC Urine Nitrite Negative (Negative) POC Urine Bilirubin Negative (Negative) POC Urine Urobilinogen 0.2 POC U Leukocyte Esteras Negative (Negative) Imaging Data My impression: Agree with radiologist Radiologist's impression: EXAMINATION: XR abdomen/kub 1V, 06/30/2025 16:33 CDT HISTORY: R flank pain and bladder pain, hx of kidney stones COMPARISON: No comparisons available. Technique: 3 view. Findings: Moderate fecal content, no dilated bowel loops. There are left-sided renal calculi the largest mid pole 3 mm No acute osseous abnormality. Impression: 1. No acute abnormality. Discharge Plan Discharge Clinical Impression: Kidney stone on left side, Constipation, Hematuria Patient Disposition: Home Condition: Stable Instructions: Constipation (ED) Additional Instructions: the x-ray of her abdomen shows a moderate amount of stool. There is a kidney stone to her left kidney. Take an cgfs-uho-cstdxvy medication to treat constipation such as MiraLax or Dulcolax. Take as directed on packaging. Drink at least 64 oz water a day. Increase fiber in diet. Your urinalysis was positive for blood today. There were no concerns for infection. A urine culture was ordered. If your urine culture is positive we will call you at that time and prescribed an antibiotic. Follow-up with your primary care physician regarding blood in your urine. Follow-up at scheduled nephrology appointment. Go to the ER for any worsening of symptoms. Patient Language: Mongolian Prescriptions: New tramadol 50 mg tablet 50 mg PO Q6H PRN (Reason: pain) Qty: 20 0RF No Action tamsulosin 0.4 mg capsule PO aspirin [Adult Low Dose Aspirin] 81 mg tablet,delayed release (DR/EC) 81 mg PO DAILY calcium polycarbophil [FiberCon] 625 mg tablet 1,250 mg PO DAILY Tart Alas Extract 1,000 mg capsule PO colchicine 0.6 mg tablet 0.6 mg PO BID Qty: 60 3RF Digestive Probiotic 10 billion cell capsule 1 cap PO DAILY cholecalciferol (vitamin D3) 50 mcg (2,000 unit) capsule 1,000 unit PO DAILY cyclosporine [Restasis] 0.05 % dropperette 1 drp EACH EYE Q12H omega 5-nnb-ajm-fish oil [Fish Oil] 1,000 mg (120 mg-180 mg) Capsule 2 cap PO DAILY vitamin B complex Capsule 1 cap PO DAILY alpha lipoic acid 600 mg Capsule 600 mg PO DAILY pantoprazole 40 mg tablet,delayed release (DR/EC) See Rx Instructions .ROUTE .COMPLEX Qty: 90 1RF Dose Instruction: TAKE 1 TABLET BY MOUTH EVERY DAY IN THE MORNING Rx Instructions: TAKE 1 TABLET BY MOUTH EVERY DAY IN THE MORNING tirzepatide (weight loss) 10 mg/0.5 mL solution 10 mg subcut WEEKLY Qty: 2 0RF Follow-up/Referrals: Yunier Rodríguez MD [Primary Care Provider, Internal Medicine] Time of Disposition: 17:14
[2025-06-30 16:22] LABS: EDUAAPPEAR Clear; EDUABILI Negative (Negative); EDUABLOOD 2+ (Negative); EDUACOLOR1 Yellow; EDUAGLUCOSE Negative (Negative); EDUAKETONE Negative (Negative); EDUALEUKO Negative (Negative); EDUANITRATE Negative (Negative); EDUAPH 5.5; EDUAPROTEIN Negative (Negative); EDUASPGRAVITY 1.020; EDUAUROBILI 0.2
== END 2025-06-30 17:20 | disposition home or self-care (01) ==
PROVIDERS: Emergency Provider Nurse Practitioner Family; PCP Internal Medicine
DX: N20.0 Calculus of kidney (principal); K59.00 Constipation, unspecified; R31.9 Hematuria, unspecified; Z87.891 Personal history of nicotine dependence; I10 Essential (primary) hypertension; N40.0 Benign prostatic hyperplasia without lower urinary tract symptoms; K21.9 Gastro-esophageal reflux disease without esophagitis; M10.9 Gout, unspecified; E78.2 Mixed hyperlipidemia; R73.03 Prediabetes; K22.70 Barrett's esophagus without dysplasia; E55.9 Vitamin D deficiency, unspecified; Z85.820 Personal history of malignant melanoma of skin
CPT/HCPCS: 74018; 81003; 87086; 99213; G0463

== ENCOUNTER 2025-07-25 11:18 | Outpatient (CLI) | payer MEDICARE, SELFPAY ==
--- NOTE | ~2025-07-25 | US_ITS ---
EXAMINATION: US retroperitoneal comp DATE: 07/25/2025 12:26 INDICATION: Calculus of kidney. TECHNIQUE: Multiple ultrasound grayscale images of the kidneys were obtained. COMPARISON: CT abdomen and pelvis 03/13/2024 FINDINGS: The right kidney measures 12.2 x 5.5 x 4.7 cm. The left kidney measures 11.7 x 5.6 x 5.2 cm. The kidneys demonstrate normal parenchymal echogenicity. There is no hydronephrosis. The bladder is normal. IMPRESSION: 1. Normal kidney sizes. No hydronephrosis. Reviewed, dictated and finalized at location E.
== END 2025-07-25 11:19 | disposition home or self-care (01) ==
PROVIDERS: PCP Internal Medicine; Visit Provider Internal Medicine Nephrology
DX: N20.0 Calculus of kidney (principal)
CPT/HCPCS: 76770

== ENCOUNTER 2025-08-22 14:19 | Outpatient (CLI) | payer MEDICARE, SELFPAY ==
--- OUTSIDE RECORDS SUMMARY | 2025-08-21 10:00 | XMS_ITS | Encounter Summary ---
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); Nephrolithiasis Social History Tobacco Use Types Packs/Day Years Used Date Smoking Tobacco: Former Cigarettes Q uit: 2007 Smokeless Tobacco: Never Alcohol Use Standard Drinks/Week [...] on file Legal Sex Male 2:05 AM PROJECTS MANAGER Gender Identity Male 02/23/2023 2:28 PM CDT Sexual Orientation Straight 02/23/2023 2: 28 PM CDT documented as of this encounter Last Filed Vital Signs Vital Sign Reading Time Taken Comments Blood Pressure 148/82 08/21/2025 10:08 AM PROJECTS MANAGER Pulse 87 08/21/2025 10:08 AM PROJECTS MANAGER Temperature - - Respiratory Rate - - Oxygen Saturation 98% 08/21/2025 10:08 AM PROJECTS MANAGER Inhaled Oxygen Concentration - - Weight 96.6 kg (213 lb) 08/21/2025 10:08 AM PROJECTS MANAGER Height 180.3 cm (5' 11) 08/21/2025 10:08 AM PROJECTS MANAGER Body Mass Index 29.71 08/21/2025 10:08 AM PROJECTS MANAGER documented in this encounter Functional Status documented as of this encounter Ordered Prescriptions Prescription Sig Dispense Quantity Refills Last Filled Start Date End Date allopurinoL (ZYLOPRIM) 100 mg tablet Take 1 tablet (100 mg total) by mouth daily 30 tablet 5 08/21/2025 02/17/2026 documented in this encounter Progress Notes * Richa Herrera PA - 08/21/2025 10:00 AM CST Images from the original note were not included. Subjective/Objective Patient ID: Javi Bruce is a 74 y.o. male. Chief Complaint: Gout HPI 74yoM presents for management of gout. He reports that his first gout flare affected his L midfoot in 2016. From 4041-9719 experienced roughly 1 attack per year. Explains that it wasn't until around 2019 that someone told him confidently that the symptoms were due to gout; this was based upon uric acid levels, denies joint aspiration. In 2020 he experienced two flares and from 7555-8824 he had three per year. Notes that one of the flares in 2022 was massive and he was seen in the ED at that time. Now in 2024 he reports 6-8 gout flares, explaining that while they are more frequent, they havebeen less severe. The flares have affected the R and L foot/ankle, but not elsewhere. Between the flares he denies any joint pain/stiffness. Finds that flares respond best to the combination of prednisone with an NSAID, either indomethacin or naproxen. He has been concerned about the use of NSAIDs due to his h/o Patrick's esophagus. He reports that colchicine was dc'd in June 2025 due to diarrhea and tea colored urine, of note though, he reports that he was taking 4 mg daily. He started Zepbound in March and is down 38#. States that he passed 40 kidney stones over the next three months, ranging from fragments up to 5 mm. Has not passed any stones now for the last 2-3 weeks. He did see urology and now nephrology about the kidney stones. Last available uric acid level 02/04/2025 was 8.9. 03/13/2024 XR L foot/ankle: avulsion fx superior/anterior margin of the talus. Mild lateral soft tissue swelling. Medical hx: OA, gout, GERD/PUD, BPH, HTN/HLD, thyroid disease, neuropathy, melanoma (), nephrolithiasis (), MASH, hx Pancreatitis, Right Dupuytren's. Shx: R RTC repair (), meniscal repair(), hx R 3rd and 4th trigger finger release, L4 trigger finger release (), L hip bursectomy (), B CTS release (), diverticulosis, cataracts. Denies other heart, lung, liver, thyroid, and/or kidney issues. Family hx: Father (gout) Social hx: former smoker, quit 2008; ~10 alcoholic beverages per week; occupation: retired Review of Systems: Constitutional: Negative for fever. HENT: Negative for mouth sores. Eyes: Negative for redness. Respiratory: Negative for shortness of breath. Cardiovascular: Negative for chest pain. Gastrointestinal: Negative for blood in stool, diarrhea, and dysphagia. Genitourinary: No dysuria Musculoskeletal: + for arthralgias. Negative for myalgias. Skin: Negative for rash. Neurological: Negative for seizures. Physical Exam: Constitutional: appears well-developed and well-nourished. HENT: Head: Normocephalic. Right Ear: External ear normal. Left Ear: External ear normal. Nose: Nose normal. Mouth/Throat: [place] and moist. No oropharyngeal exudate. Eyes: Conjunctivae are normal. Right eye exhibits no discharge. Left eye exhibits no discharge. No scleral icterus. Neck: Normal range of motion. Neck supple. Cardiovascular: Normal rate, regular rhythm. No murmur heard. Pulmonary/Chest: Effort normal. No respiratory distress. no wheezes. no rales. Musculoskeletal: Full rom all extremities with 5/5 strength. Full fist, floral manager intact. Hammer toe deformity R 4th. Hallux valgus. Lymphadenopathy: no cervical adenopathy. Neurological: alert. Normal muscle tone. Coordination normal. Skin: Skin is warm and dry. No rash noted. No erythema. No pallor. Psychiatric: normal mood and affect. behavior is normal. 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 He reports increasing frequency of gout flares with 6-8 occurring this year. Last available uric acid in January was 8.9. Previously has been treated only with prednisone, NSAIDs (naproxen and indomethacin), and colchicine. Denies having taken allopurinol or Uloric. He is hopeful to begin preventative treatment. He is not currently flaring, exam is largely unremarkable. Will check updated baseline labs as below today. Begin allopurinol 100 mg daily. Reviewed increased risk of a gout flare after first initiating treatment with allopurinol and theneed to co-treat with either colchicine or an NSAID. He is averse to colchicine given prior diarrhea and tea colored urine, though he reported taking a high dose of 4 mg daily. Will instead co-treat with naproxen, he states that he already has a Rx for this at home. Plan for follow up in 2 weeks toreassess or sooner as needed. Orders: - CBC with auto differential; Future - Comprehensive metabolic panel; Future - Uric acid; Future - CRP (acute phase); Future Nephrolithiasis Assessment & Plan: Pt believes he has had both calcium oxalate and uric acid stones. Continue follow up with nephrology as planned. Other orders - allopurinoL (ZYLOPRIM) 100 mg tablet; Take 1 tablet (100 mg total) by mouth daily Patient was seen with Dr. Salazar Cosigned by Eduardo Salazar MD at 08/21/2025 5:01 PM PROJECTS MANAGER ECTS MANAGER ECTS MANAGER documented in this encounter Miscellaneous Notes * Assessment & Plan Note - Richa Herrera PA - 08/21/2025 3:36 PM PROJECTS MANAGER Associated Problem(s): Nephrolithiasis Pt believes he has had both calcium oxalate and uric acid stones. Continue follow up with nephrology as planned. ECTS MANAGER ECTS MANAGER * Assessment & Plan Note - Richa Herrera PA - 08/21/2025 3:36 PM PROJECTS MANAGER Associated Problem(s): Idiopathic chronic gout of multiple sites without tophus 74yoM with a h/o gout presents to establish care. He reports increasing frequency of gout flares with 6-8 occurring this year. Last available uric acid in January was 8.9. Previously has been treated only with prednisone, NSAIDs (naproxen and indomethacin), and colchicine. Denies having taken allopurinol or Uloric. He is hopeful to begin preventative treatment. He is not currently flaring, exam is largely unremarkable. Will check updated baseline labs as below today. Begin allopurinol 100 mg daily. Reviewed increased risk of a gout flare after first initiating treatment with allopurinol and theneed to co-treat with either colchicine or an NSAID. He is averse to colchicine given prior diarrhea and tea colored urine, though he reported taking a high dose of 4 mg daily. Will instead co-treat with naproxen, he states that he already has a Rx for this at home. Plan for follow up in 2 weeks toreassess or sooner as needed. ECTS MANAGER ECTS MANAGER documented in this encounter Plan of Treatment Pending Results Name Type Priority Associated Diagnoses Date /Time CBC with auto differential Lab Routine Idiopathic chronic gout of multiple sites without tophus 08/22/2025 1:59 PM PROJECTS MANAGER Comprehensive metabolic panel Lab Routine Idiopathic chronic gout of multiple sites without tophus 08/22/2025 1:59 PM PROJECTS MANAGER Uric acid Lab Routine Idiopathic chronic gout of multiple sites without tophus 08/22/2025 1:59 PM PROJECTS MANAGER CRP (acute phase) Lab Routine Idiopathic chronic gout of multiple sites without tophus 08/22/2025 1:59 PM PROJECTS MANAGER Scheduled Orders Name Type Priority Associated Diagnoses Orde r Schedule CBC with auto differential Lab Routine Idiopathic chronic gout of multiple sites without tophus Expected: 08/21/2025, Expires: 08/21/2026 Comprehensive metabolic panel Lab Routine Idiopathic chronic gout of multiple sites without tophus Expected: 08/21/2025, Expires: 08/21/2026 Uric acid Lab Routine Idiopathic chronic gout of multiple sites without tophus Expected: 08/21/2025, Expires: 08/21/2026 CRP (acute phase) Lab Routine Idiopathic chronic gout of multiple sites without tophus Expected: 08/21/2025, Expires: 02/18/2026 documented as of this encounter Visit Diagnoses Diagnosis Idiopathic chronic gout of multiple sites without tophus- Primary Nephrolithiasis Calculus of kidney documented in this encounter Discontinued Medications Medication Sig Discontinue Reason Start Date End Da te aspirin 81 mg tabletIndications:prima ry prevention of coronary heart disease Take 1 tablet (81 mg total) by mouth daily before breakfast 08/21/2025 acetaminophen (TYLENOL) 325 mg tablet Take 2 tablets (650 mg total) by mouth every 6 (six) hours as needed for pain 08/21/2025 candesartan (ATACAND) 32 mg tabletIndications:hyper tension Take 1 tablet (32 mg total) by mouth daily before breakfast 08/21/2025 docusate sodium (COLACE) 100 mg capsuleIndications:cons tipation Take 1 capsule (100 mg total) by mouth 2 (two) times a day for 14 days 08/30/2024 08/21/2025 ibuprofen 200 mg tab/cap Take 2 tablet/capsule (400 mg total) by mouth every 6 (six) hours as needed for pain 08/21/2025 oxyCODONE (ROXICODONE) 5 mg immediate release tabletIndications:Pain TAKE ONE TO TWO TABLETS EVERY 6 TO 8 HOURS PRN PAIN 11/08/2024 08/21/2025 documented as of this encounter Historical Medications * This list may reflect changes made after this encounter. hydrocortisone 2.5 % cream Apply topically 2 (two) times a day valACYclovir (VALTREX) 500 mg tablet Take by mouth tirzepatide, weight loss, (ZEPBOUND) 10 mg/0.5 mL solution vial Inject 0.5 mL (10 mg total) under the skin 06/25/2025 sour lopes extract 1,000 mg capsule Take by mouth 02/07/2025 added in this encounter Care Teams Freezer Worker Relationship Specialty Start Date End Date Yunier Rodríguez MD PCP - General 08/17/11 Eduardo Salazar MD [address] [place] [address] Consulting Physician Rheumatology 08/01/25 documented as of this encounter
--- NOTE | ~2025-08-22 | XR_ITS ---
EXAMINATION: XR foot RT min 3V, 08/22/2025 14:41 RN OR LVN HISTORY: M79.671 - Pain in right foot COMPARISON: No comparisons available. Findings: No acute fracture or malalignment. No significant degenerative changes. Soft tissues unremarkable. Impression: No acute fracture or malalignment. Reviewed, dictated and finalized at location P. OR LVN Impression: No acute fracture or malalignment.
--- OUTSIDE RECORDS SUMMARY | 2025-08-22 20:32 | XMS_ITS | Clinical Summary ---
Author Organization [facility] [employer] Address [address] [place] [address] Care Team Providers Care Trimmer Helper Name Role Phone Yunier Rodríguez MD Primary Care Provider [phone] Source Comments [facility] [employer],non-owned Affiliates and Associated Physician Practices is amultiple site organization consisting of ambulatory clinics and hospital sitesin [place], [place], [place] and [place]. This disclosure is being madepursuant to the Care Everywhere program and may not contain all information available regarding this patient. 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 Dermatochalasis of both upper eyelids 12/16/2015 Hyperlipidemia 10/07/2015 Neuropathy 10/07/2015 Nonalcoholic fatty liver disease 10/07/2015 Renal stone 10/07/2015 Thyroid nodule 10/07/2015 Pain of foot 06/18/2015 Encounters Date Type Department Care Team Description 08/09/2025 Orders Only [facility] - Endocrinology [address] [place] [address] Timur Harrell MD Thyroid nodule; Multinodular thyroid from Last 3 Months Immunizations Immunization Administration Dates Next Due INFLUENZA [...] PM CDT Legal Sex 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
--- OUTSIDE RECORDS SUMMARY | 2025-08-22 20:32 | XMS_ITS | Encounter Summary ---
Author Organization [facility] Healthcare Address [address] [place] [address] Care Team Providers Care Billboard Poster Name Role Phone Yunier Rodríguez MD Primary Care Provider [phone] Eduardo Salazar MD Unavailable [phone] Encounter Details Date Type Department Care Team (Late st Contact Info) Description 04/07/2020 Telephone [facility] Imaging [address] [place], [place] [id number] Virgen Simon RDMS Social History Tobacco Use Types Packs/Day Years Used Date Smoking Tobacco: Former Smokeless Tobacco: Never Alcohol Use Standard Drinks/Week Comments Yes 0 (1 standard drink = 0.6 oz pur e alcohol) Sex and Gender Information Value Date Recorded Sex Assigned at Not on file 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
--- OUTSIDE RECORDS SUMMARY | 2025-08-22 20:32 | XMS_ITS | Clinical Summary ---
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
--- OUTSIDE RECORDS SUMMARY | 2025-08-22 20:32 | XMS_ITS | Encounter Summary ---
Author Organization [facility] Address [address] 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 Gender Identity Male 02/18/2023 12:48 PM CDT Sexual Orientation Straight 02/18/2023 12 :48 PM CDT documented as of this encounter Plan of Treatment Not on file documented as of this encounter Procedures Procedure Name Priority Date/Time Associated Diagnosis Comments DERMATOPATHOLOGY Routine 06/28/2023 12:0 0 AM CDT documented in this encounter Results * DERMATOPATHOLOGY (06/28/2023 12:00 AM CDT) Case Report Dermatopathology Report Case: [id number] Authorizing Provider: Chris Gamboa MD Collected: 06/28/2023 12:00 AM Ordering Location: [facility] Derm[facility] Lab Received: 06/30/2023 06:52 AM Pathologist: Nikky Lanier MD Specimen: Skin, left jaw 3:29 PM CDT DERMATOPATHOLOGY LABORATORY Final Diagnosis Specimen A. SKIN, left jaw: ACTINIC KERATOSIS, PIGMENTED (L57.0) (see microscopic description) 3:29 PM CDT DERMATOPATHOLOGY LABORATORY at 1529 CDT Clinical History Lentigo vs LM Path#[id number] 3:29 PM CDT DERMATOPATHOLOGY LABORATORY Gross Description [...] characteristic determined by the Dermatopathology Laboratory at [facility], directed by Dr. Jose J Larose. These tests need not be, and therefore are not, approved by the [place] Food and Drug Administration. The tests are used for clinical purposes. Billing Codes Specimen Charges Stain Charges 44846 1 76372 1 3 3:29 PM CDT DERMATOPATHOLOGY LABORATORY Embedded Images 3 3:29 PM CDT DERMATOPATHOLOGY LABORATORY Pathology/Cytolog y TISSUE SPECIMEN FROM SKIN / Unknown 06/28/2023 06/30/2023 6:52 AM CDT Chris Gamboa MD LAB - PATHOLOGY/CYTOLOGY ORDER LEI Final Result DERMATOPATHOLOGY LABORATORY [facility] - Department of Dermatology [facility] [address] [place] [address], [address] [phone] documented in this encounter Visit Diagnoses Not on filedocumented in this encounter Care Teams Retail Loan Originator Relationship Specialty Start Date End Date Yunier Rodríguez MD [address] [place] [phone] PCP - General 05/10/18 documented as of this encounter
--- OUTSIDE RECORDS SUMMARY | 2025-08-22 20:32 | XMS_ITS | Clinical Summary ---
Author Organization [facility] Address [address] [place] [address] Care Team Providers Care Welt Pocket Machine Operator Name Role Phone Yunier Rodríguez MD Primary Care Provider [phone] Social History Tobacco Use Types Packs/Day Years [...] Wellness Visit 2016 COVID-19 Vaccine ( season) 2025 07/24/2022, 08/12/2021, 12/16/2020, Additional history exists Influenza Adult (#1) 2025 07/13/2021, 08/21/2019, 08/17/2018, Additional history exists DTaP, Tdap and Td Vaccines (2 - Td or Tdap) 12/30/2027 12/29/2017 Zoster Vaccines Completed 10/01/2020, 06/17, 07/19/2013 Pneumococcal Vaccine: 50+ Years Completed 06/13/2023, 08/21/2019, 08/07/2018 RSV Immunization or 60+ Years Completed 09/24/2023 Hepatitis A Vaccines Aged Out No long er eligible based on patient's age to complete this topic Meningococcal B Vaccine Aged Out No l onger eligible based on patient's age to complete this topic Meningococcal Vaccine Aged Out No nima gianni eligible based on patient's age to complete this topic RSV Immunizations Under 20 Months Aged Out No longer eligible based on patient's age to complete this [place] [address] MEDICARE [employer] Care Teams Welt Pocket Machine Operator Relationship Specialty Start Date End Date Yunier Rodríguez MD [address] [id number] PCP - General INTERNAL MEDICINE 07/30/22
--- OUTSIDE RECORDS SUMMARY | 2025-08-22 20:32 | XMS_ITS ---
Author Organization [facility] [address] Address [address] [place] [address] Care Team Providers Care Office Copy Selector Name Role Phone Yunier Rodríguez MD Primary Care Provider [phone] Eduardo Salazar MD Unavailable [phone] Active Problems Problem Noted Date Diagnosed Date Idiopathic chronic gout of multiple sites chani kapil jimi 08/21/2025 Assessment & Plan (08/21/2025 3:37 PM MECHANICS SUPERVISOR): 74yoM with a h/o gout presents to [...] after first initiating treatment with allopurinol and the need to co-treat with either colchicine or an NSAID. He is averse to colchicine given prior diarrhea and tea colored urine, though he reported taking a high dose of 4 mg daily. Will instead co-treat with naproxen, he states that he already has a Rx for this at home. Plan for follow up in 2 weeks to reassess or sooner as needed. Palpitations 06/04/2025 Tachycardia 06/04/2025 Trigger finger, left ring finger 06/04/2025 Complete tear of right rotator cuff 08/15/2024 Pancreatitis 03/12/2024 Overview (06/04/2025): developed pain in early AM. ER visit confirmed pancreatitis and confined to hospital for 10 days fasting, limited diet and IV saline. Resolved with dietary limitations. Scrotal swelling 08/13/2019 Chronic sinusitis 01/22/2019 Nasal obstruction 01/22/2019 Ear fullness, right 01/22/2019 Melanoma of lower leg 05/10/2018 Varicose veins of left lower extremity with pain 03/23/2018 Overview (03/23/2018): Added automatically from request for surgery [id number] Thrombophlebitis of superfic ial veins of left lower extremity 02/08/2018 Alcohol-induced polyneuropathy 07/25/2016 Dermatochalasis of both upper eyelids 12/16/2015 Hyperlipidemia 10/07/2015 Neuropathy 10/07/2015 Nonalcoholic fatty liver disease 10/07/2015 Nephrolithiasis 10/07/2015 Assessment & Plan (08/21/2025 3:37 PM MECHANICS SUPERVISOR): Pt believes he has had both calcium oxalate and uric acid stones. Continue follow up with nephrology as planned. Thyroid nodule 10/07/2015 Pain of foot 06/18/2015 Current Treatment and Therapy Plans No current plan information found. Past Treatment and Therapy Plans No past plan information found. Lifetime Dose Tracking * Chemical Lifetime Dose Automatic Entry Manual Entr y DLP 171 mGycm 171 mGycm 0 mGycm
--- OUTSIDE RECORDS SUMMARY | 2025-08-22 20:32 | XMS_ITS | Clinical Summary ---
Author Organization [facility] [address] Address [address] [place] [address] Care Team Providers Care Supervisor Net Making Name Role Phone Yunier Rodríguez MD Primary Care Provider [phone] Eduardo Salazar MD Unavailable [phone] Allergies Active Allergy Reactions Criticality Noted Date Comments Diphenhydramine Other (See comments) Low 02/23/2016 Irritability and increase in energy Medications fish oil-dha-epa 1,200-144-216 mg capsuleIndicat ions:health Take 1 tablet by mouth daily before breakfast Active acidophilus-pe ctin, citrus 100 million cell-10 mg capsuleIndicat ions:gut health Take 1 capsule by mouth once a week Active alpha lipoic acid 600 mg capsuleIndicat ions:health Take 1 capsule (600 mg total) by mouth daily before breakfast Active cholecalcifero l (VITAMIN D-3) 2,000 unit tabletIndicati ons:Vitamin D Deficiency Take 1 tablet (2,000 Units total) by mouth daily before breakfast Active pantoprazole DR (PROTONIX) 40 mg EC tabletIndicati ons:Treatment of Non-Bleeding Gastric Disorder Take 1 tablet (40 mg total) by mouth daily before breakfast Active polycarbophil (FIBERCON) 625 mg tabletIndicati ons:constipati on Take 1 tablet (625 mg total) by mouth daily before breakfast Active vitamin B complex capsuleIndicat ions:Vitamin Deficiency Prevention Take 1 capsule by mouth daily before breakfast Active tamsulosin (FLOMAX) 0.4 mg extended release capsule Take by mouth daily 05/29/20 25 Active allopurinoL (ZYLOPRIM) 100 mg tablet Take 1 tablet (100 mg total) by mouth daily 30 tablet 5 08/21/20 25 026 Active sour lopes extract 1,000 mg capsule Take by mouth 02/08/20 25 Active tirzepatide, weight loss, (ZEPBOUND) 10 mg/0.5 mL solution vial Inject 0.5 mL (10 mg total) under the skin 06/25/20 25 Active valACYclovir (VALTREX) 500 mg tablet Take by mouth Active hydrocortisone 2.5 % cream Apply topically 2 (two) times a day Active aspirin 81 mg tabletIndicati ons:primary prevention of coronary heart disease Take 1 tablet (81 mg total) by mouth daily before breakfast 025 Discontinued candesartan (ATACAND) 32 mg tabletIndicati ons:hypertensi on Take 1 tablet (32 mg total) by mouth daily before breakfast 025 Discontinued ibuprofen 200 mg tab/cap Take 2 tablet/capsul e (400 mg total) by mouth every 6 (six) hours as needed for pain 025 Discontinued acetaminophen (TYLENOL) 325 mg tablet Take 2 tablets (650 mg total) by mouth every 6 (six) hours as needed for pain 025 Discontinued docusate sodium (COLACE) 100 mg capsuleIndicat ions:constipat ion Take 1 capsule (100 mg total) by mouth 2 (two) times a day for 14 days 28 capsule 08/30/20 24 025 Discontinued oxyCODONE (ROXICODONE) 5 mg immediate release tabletIndicati ons:Pain TAKE ONE TO TWO TABLETS EVERY 6 TO 8 HOURS PRN PAIN 40 tablet 11/08/19 25 025 Discontinued Active Problems Problem Noted Date Diagnosed Date Idiopathic chronic gout of multiple sites chani krause 08/21/2025 Assessment & Plan (08/21/2025 3:37 PM ADVERTISING TEACHER): 74yoM with a h/o gout presents to [...] (03/23/2018): Added automatically from request for surgery [id number] Thrombophlebitis of superfic ial veins of left lower extremity 02/08/2018 Alcohol-induced polyneuropathy 07/25/2016 Dermatochalasis of both upper eyelids 12/16/2015 Hyperlipidemia 10/07/2015 Neuropathy 10/07/2015 Nonalcoholic fatty liver disease 10/07/2015 Nephrolithiasis 10/07/2015 Assessment & Plan (08/21/2025 3:37 PM ADVERTISING TEACHER): Pt believes he has had both calcium oxalate and uric acid stones. Continue follow up with nephrology as planned. Thyroid nodule 10/07/2015 Pain of foot 06/18/2015 Encounters Date Type Department Care Team Description 08/21/2025 10:00 AM ADVERTISING TEACHER Office Visit [facility] [address] [place] [address] Richa Herrera PA Idiopathic chronic gout of multiple sites without tophus (Primary Dx); Nephrolithiasis 06/04/2025 8:40 AM CDT Office Visit [facility] [address] [place] [address] Eric Hall MD Trigger ring finger of left hand (Primary Dx); Dupuytren's contracture from Last 3 Months Surgical History Surgery Date Site/Laterality Comments CATARACT EXTRACTION 10/17/2014 - 10/16/2015 HEMORROIDECTOMY 10/17/2015 - 10/16/2016 HIP SURGERY 09/16/2016 - 10/16/2016 left hip bursectomy ENDOVENOUS ABLATION SAPHENOUS VEIN W/ LASER 10/17/2011 - 10/16/2012 Left MELANOMA RESECTION 03/17/2014 - 04/15/2014 VARICOSE VEIN SURGERY 09/21/2018 Left Stab Phlebectomy CARPAL TUNNEL RELEASE 10/17/2010 - 10/16/2011 Bilateral 2007 SPERMATOCELECTOMY 10/17/2015 - 10/16/2016 TRIGGER FINGER RELEASE 10/17/2019 - 10/16/2020 MENISCUS SURGERY 12/15/2020 - 01/14/2021 FINGER SURGERY 10/17/2021 - 10/16/2022 LASIK 03/2014 Bilateral CATARACT EXTRACTION 2014 bilateral replacements ROTATOR CUFF REPAIR 09/16/2024 - 10/16/2024 Right Medical History Medical History Date Comments Thyroid disorder Melanoma (HCC) Gastric ulcer Neuropathy Hypertension History of kidney problems Acid reflux disease Ulcer (traumatic) of oral mucosa Pancreatitis Cataract 02/2014 Benign prostatic hyperplasia 02/18/2024 Kidney stone Since 1988 Family History Medical History Relation Name Comments Colon cancer Brother 1 Diabetes type II Brother 1 Cancer Brother 2 Yoni Janis Alcohol abuse Father Tramaine Bruce Diabetes Father Tramaine Bruce varicose veins Stroke Father Tramaine Bruce Cancer Father's Brother Roberth Janis Arthritis Mother Yvonnemadhu Bruce COPD Mother Yvonnemadhu Bruce Hearing loss Mother Yvonnemadhu Pappasn Stroke Mother Yvonne Bruce Relation Name Status Comments Brother 1 Brother 2 Yoni Bruce Alive Father Tramaine Bruce Father's Brother Roberth Bruce Alive Mother Yvonne Bruce Social History Tobacco Use Types Packs/Day Years Used Date Smoking Tobacco: Former Cigarettes Q uit: 2007 Smokeless Tobacco: Never Tobacco Cessation:Counseling Given: Not [...] on file Legal Sex Male 2:05 AM ADVERTISING TEACHER Gender Identity Male 02/23/2023 2:28 PM CDT Sexual Orientation Straight 02/23/2023 2: 28 PM CDT Last Filed Vital Signs Vital Sign Reading Time Taken Comments Blood Pressure 148/82 08/21/2025 10:08 AM ADVERTISING TEACHER Pulse 87 08/21/2025 10:08 AM ADVERTISING TEACHER Temperature 36 C (96.8 F) 10/15/2024 2:54 PM ADVERTISING TEACHER Respiratory Rate 23 10/15/2024 3:50 PM ADVERTISING TEACHER Oxygen Saturation 98% 08/21/2025 10:08 AM ADVERTISING TEACHER Inhaled Oxygen Concentration - - Weight 96.6 kg (213 lb) 08/21/2025 10:08 AM ADVERTISING TEACHER Height 180.3 cm (5' 11) 08/21/2025 10:08 AM ADVERTISING TEACHER Body Mass Index 29.71 08/21/2025 10:08 AM ADVERTISING TEACHER Plan of Treatment Health Maintenance Due Date Last Done Comments Colon Cancer Screening-Colonoscopy 1950 Depression Screening 1950 Hepatitis C Screening 1950 Hepatitis B Screening 1969 Abdominal Aortic Aneurysm (A AA) Screen 2016 Well Visit 65+ 2016 Influenza Vaccine (#1) 2025 , 07/01/2023, 07/17/2021, Additional history exists Fall Risk Assessment 10/15/2025 10/15/2024 DTaP/Tdap/Td Vaccine (2 - Td or Tdap) 12/30/2027 12/29/2017 Pneumococcal vaccine 65+ Completed 019, 08/08/2018, 08/07/2018 Zoster Vaccine Completed 10/01/2020, 06/17, 07/19/2013 Medical Devices Implanted Type Area [employer] Conservation Laborer Device Identifier Shelf Expiration Date Model / Serial / Lot [employer] Corkscrew Suturetape 5.5mm 14.7mm Bioabsorbable Full Thread 1.3mm [id number]-[id number] - [id number] Implanted:Qty: 1 on 10/15/2024 by Curly Pretty MD at [facility] Right: Shoulder [employer] 05/16/2026 AR-[id number] / / [id number] [employer] Corkscrew Suturetape 5.5mm 14.7mm Bioabsorbable Full Thread 1.3mm Ar-[id number] - [id number] Implanted:Qty: 1 on 10/15/2024 by Curly Pretty MD at [facility] Right: Shoulder [employer] 07/16/2026 AR-[id number] / / [id number] [employer] Ar-2324 Bcm Swivelock 4.75mm 24.5mm Self Punch Vent Shoulder [place] Suture - [id number] Implanted:Qty: 1 on 10/15/2024 by Curly Pretty MD at [facility] Right: Shoulder [employer] 05/16/2028 AR-[id number] / / [id number] [employer] Ar-2324 Bcm Swivelock 4.75mm 24.5mm Self Punch Vent Shoulder [place] Suture - [id number] Implanted:Qty: 1 on 10/15/2024 by Curly Pretty MD at [facility] Right: Shoulder [employer] 05/16/2028 AR-[id number] / / [id number] Insurance MEDICARE [employer] GENERIC MEDICARE [facility] MEDICARE SUPPLEMENT MEDICARE [facility] MEDICARE [facility] MEDICARE SUPPLEMENT Member Subscriber Plan / Payer (Ef fective 2024-Present) Name:Murtaza Bruce Relation to Subscriber:Self Name:Florinda Brucevilma Christopher Payer ID:[id number] Group ID:[id number] Type:COMMERCIAL Address: [address] [place] [id number] Care Teams Supervisor Net Making Relationship Specialty Start Date End Date Yunier Rodríguez MD PCP - General 08/17/11 Eduardo Salazar MD [address] [place] [address] Consulting Physician Rheumatology 08/01/25
== END 2025-08-22 14:20 | disposition home or self-care (01) ==
PROVIDERS: PCP Internal Medicine; Visit Provider Internal Medicine
DX: M79.671 Pain in right foot (principal)
CPT/HCPCS: 73630